=== PATIENT | female | born 1985 | race Caucasian/White ===

== ENCOUNTER 2019-08-25 07:22 | Emergency (ER) | payer MEDICARE, OTHER ==
[2019-08-25] MEDS ORDERED: METOCLOPRAMIDE 5 MG/ML 2 ML VIAL IVP STA (07:41)
[2019-08-25] MEDS ORDERED: SODIUM CHLORIDE 0.9% 500 ML 500 ML IV STA (07:41)
[2019-08-25] MEDS ORDERED: diphenhydrAMINE 50 MG/ML 1 ML VIAL IVP STA (07:41)
[2019-08-25] MEDS ORDERED: MAG HYDROX/AL HYDROX/SIMETH 30 ML, HYOSCYAMINE ELIXIR 10 ML, LIDOCAINE VISCOUS 2% 10 ML PO STA ×3 (07:41)
[2019-08-25] MEDS ORDERED: FAMOTIDINE 20 MG/2 ML VIAL IV STA (07:41)
[2019-08-25] MEDS ORDERED: SODIUM CHLORIDE 0.9% 1,000 ML IV STA (07:41)
[2019-08-25] MEDS ORDERED: IOPAMIDOL CONTRAST (ORAL USE) VIAL PO PRN (08:09)
--- NOTE | 2019-08-25 08:28 | ED ---
Abdominal Pain HPI - General Chief Complaint: Abdominal Pain Stated Complaint: abd pain Time Seen by Provider: 08/25/19 07:29 Source: patient, RN notes reviewed Mode of arrival: ambulatory Limitations: no limitations - History of Present Illness Initial Comments: This a 34-year-old female presents emergency Department with chief complaint abdominal pain. Patient states it started on Friday but states has been constant since yesterday around 2 PM. Patient states that it is worse when she eats. Patient does admit that she's had a prior gastric sleeve procedure 2013. Patient denies any fevers chills she said some nausea no vomiting she's been sli ghtly constipated has not taken any medications for her abdominal pain or constipation. No dysuria no hematuria. Patient reports no fevers or chills patient states that at this time nothing makes her pain feel better. Patient denies any chest pain or shortness of breath. Patient also her prior c holecystectomy. - Related Data Home Medications Medication Instructions Recorded Confirmed ARIPiprazole [Abilify] 20 mg PO HS 08/25/19 08/25/19 Carvedilol [Coreg] 6.25 mg PO BID 08/25/19 08/25/19 Ferrous Sulfate [Iron] 325 mg PO DAILY 08/25/19 08/25/19 Furosemide [Lasix] 20 mg PO DAILY 08/25/19 08/25/19 Lisinopril [Zestril] 5 mg PO DAILY 08/25/19 08/25/19 OXcarbazepine [Trileptal] 300 mg PO HS 08/25/19 08/25/19 Omeprazole 40 mg PO DAILY 08/25/19 08/25/19 Previous Rx's Medication Instructions Recorded Famotidine [Pepcid] 20 mg PO BID #28 tablet 08/25/19 Sucralfate [Carafate] 1 gm PO BID #200 ml 08/25/19 Allergies Allergy/AdvReac Type Severity Reaction Status Date / Time succinylcholine Allergy Severe Unknown Verified 08/25/19 08:38 slobid Allergy Unknown Uncoded 08/29/15 12:45 Childhood Review of Systems ROS Statement: Those systems with pertinent positive or pertinent negative responses have been documented in the HPI. ROS Other: All systems not noted in ROS Statement are negative. Past Medical History Past Medical History: Diabetes Mellitus History of Any Multi-Drug Resistant Organisms: None Reported Past Surgical History: Bariatric Surgery, Section (x3), Cholecystectomy Additional Past Surgical History / Comment(s): PFO CLOSURE X2, OPEN HEART Past Psychological History: Bipolar, Depression Smoking Status: Never smoker Past Alcohol Use History: None Reported Past Drug Use History: None Reported General Exam Limitations: no limitations General appearance: alert, in no apparent distress Head exam: Present: atraumatic, normocephalic, normal inspection Eye exam: Present: normal appearance, PERRL, EOMI. Absent: scleral icterus, conjunctival injection, periorbital swelling ENT exam: Present: normal exam, mucous membranes moist Neck exam: Present: normal inspection, full ROM. Absent: tenderness, meningismus, lymphadenopathy Respiratory exam: Present: normal lung sounds bilaterally. Absent: respiratory distress, wheezes, rales, rhonchi, stridor Cardiovascular Exam: Present: regular rate (Heart rate was 88 on exam, 112 on triage.), normal rhythm, normal heart sounds. Absent: systolic murmur, diastolic murmur, rubs, gallop, clicks GI/Abdominal exam: Present: soft, tenderness (Moderate epigastric, left upper quadrant tenderness), normal bowel sounds. Absent: distended, guarding, rebound, rigid Back exam: Absent: CVA tenderness (R), CVA tenderness (L) Neurological exam: Present: alert, oriented X3 Skin exam: Present: warm, dry, intact, normal color. Absent: rash Course Vital Signs 08/25/19 08/25/19 07:23 08:20 Temperature 98.0 F Pulse Rate 112 H 69 Respiratory 20 Rate Blood Pressure 142/92 140/98 O2 Sat by Pulse 99 98 Oximetry Medical Decision Making - Medical Decision Making Patient's workup present reveals mild hyperglycemia she has a known diabetic CT does not reveal any acute abnormality. I do feel that symptoms are consistent with gastritis amount peptic ulcer disease she has been taking Motrin heavily and she's had a prior gastric sleep. She was educated to not take any NSAID she needs a follow-up with her surgeon Dr. Bryan for EGD she'll be given Pepcid, Carafate. Return parameters were discussed. - Lab Data Result diagrams: 08/25/19 07:46 08/25/19 07:46 Lab Results 08/25/19 08/25/19 08/25/19 Range/Units 07:46 07:46 07:46 WBC 8.7 (3.8-10.6) k/uL RBC 4.94 (3.80-5.40) m/uL Hgb 13.3 (11.4-16.0) gm/dL Hct 41.8 (34.0-46.0) % MCV 84.8 (80.0-100.0) fL MCH 27.0 (25.0-35.0) pg MCHC 31.8 (31.0-37.0) g/dL RDW 12.9 (11.5-15.5) % Plt Count 268 (150-450) k/uL Neutrophils % 61 % Lymphocytes % 30 % Monocytes % 4 % Eosinophils % 2 % Basophils % 1 % Neutrophils # 5.3 (1.3-7.7) k/uL Lymphocytes # 2.6 (1.0-4.8) k/uL Monocytes # 0.4 (0-1.0) k/uL Eosinophils # 0.2 (0-0.7) k/uL Basophils # 0.1 (0-0.2) k/uL Sodium 139 (137-145) mmol/L Potassium 3.9 (3.5-5.1) mmol/L Chloride 103 (98-107) mmol/L Carbon Dioxide 25 (22-30) mmol/L Anion Gap 11 mmol/L BUN 11 (7-17) mg/dL Creatinine 0.55 (0.52-1.04) mg/dL Est GFR (CKD-EPI)AfAm >90 (>60 ml/min/1.73 sqM) Est GFR (CKD-EPI)NonAf >90 (>60 ml/min/1.73 sqM) Glucose 285 H (74-99) mg/dL Calcium 9.5 (8.4-10.2) mg/dL Total Bilirubin 0.5 (0.2-1.3) mg/dL AST 20 (14-36) U/L ALT 21 (4-34) U/L Alkaline Phosphatase 118 (38-126) U/L Total Protein 7.2 (6.3-8.2) g/dL Albumin 4.1 (3.5-5.0) g/dL Amylase 39 (30-110) U/L Lipase 68 (23-300) U/L Urine Color Yellow Urine Appearance Cloudy H (Clear) Urine pH 5.0 (5.0-8.0) Ur Specific [place] 1.032 (1.001-1.035) Urine Protein Trace H (Negative) Urine Glucose (UA) 4+ H (Negative) Urine Ketones Trace H (Negative) Urine Blood Small H (Negative) Urine Nitrite Negative (Negative) Urine Bilirubin Negative (Negative) Urine Urobilinogen <2.0 (<2.0) mg/dL Ur Leukocyte Esterase Negative (Negative) Urine RBC 3 (0-5) /hpf Urine WBC 2 (0-5) /hpf Ur Squamous Epith Cells 19 H (0-4) /hpf Urine Bacteria Few H (None) /hpf Hyaline Casts 1 (0-2) /lpf Urine Mucus Few H (None) /hpf Urine HCG, Qual (Not Detectd) 08/25/19 Range/Units 07:46 WBC (3.8-10.6) k/uL RBC (3.80-5.40) m/uL Hgb (11.4-16.0) gm/dL Hct (34.0-46.0) % MCV (80.0-100.0) fL MCH (25.0-35.0) pg MCHC (31.0-37.0) g/dL RDW (11.5-15.5) % Plt Count (150-450) k/uL Neutrophils % % Lymphocytes % % Monocytes % % Eosinophils % % Basophils % % Neutrophils # (1.3-7.7) k/uL Lymphocytes # (1.0-4.8) k/uL Monocytes # (0-1.0) k/uL Eosinophils # (0-0.7) k/uL Basophils # (0-0.2) k/uL Sodium (137-145) mmol/L Potassium (3.5-5.1) mmol/L Chloride (98-107) mmol/L Carbon Dioxide (22-30) mmol/L Anion Gap mmol/L BUN (7-17) mg/dL Creatinine (0.52-1.04) mg/dL Est GFR (CKD-EPI)AfAm (>60 ml/min/1.73 sqM) Est GFR (CKD-EPI)NonAf (>60 ml/min/1.73 sqM) Glucose (74-99) mg/dL Calcium (8.4-10.2) mg/dL Total Bilirubin (0.2-1.3) mg/dL AST (14-36) U/L ALT (4-34) U/L Alkaline Phosphatase (38-126) U/L Total Protein (6.3-8.2) g/dL Albumin (3.5-5.0) g/dL Amylase (30-110) U/L Lipase (23-300) U/L Urine Color Urine Appearance (Clear) Urine pH (5.0-8.0) Ur Specific [place] (1.001-1.035) Urine Protein (Negative) Urine Glucose (UA) (Negative) Urine Ketones (Negative) Urine Blood (Negative) Urine Nitrite (Negative) Urine Bilirubin (Negative) Urine Urobilinogen (<2.0) mg/dL Ur Leukocyte Esterase (Negative) Urine RBC (0-5) /hpf Urine WBC (0-5) /hpf Ur Squamous Epith Cells (0-4) /hpf Urine Bacteria (None) /hpf Hyaline Casts (0-2) /lpf Urine Mucus (None) /hpf Urine HCG, Qual Not Detected (Not Detectd) Disposition Clinical Impression: Peptic ulcer disease, Gastritis Disposition: HOME SELF-CARE Condition: Stable Instructions (If sedation given, give patient instructions): Gastritis (ED), Peptic Ulcer (ED) Additional Instructions: Please follow-up your surgeon for EGD. No NSAID use.Please return to the Emergency Department if symptoms worsen or any other concerns. Prescriptions: Sucralfate [Carafate] 1 gm PO BID #200 ml Famotidine [Pepcid] 20 mg PO BID #28 tablet Is patient prescribed a controlled substance at d/c from ED?: No Referrals: Sherin Hilario MD [Primary Care Provider] - 1-2 days Dave Louis MD [STAFF PHYSICIAN] - 1-2 days Time of Disposition: 09:29
[2019-08-25 08:35] LABS: Basophils # (A) 0.1 k/uL (0-0.2); Basophils % (A) 1 %; Eosinophils # (A) 0.2 k/uL (0-0.7); Eosinophils % (A) 2 %; HCT 41.8 % (34.0-46.0); HGB 13.3 gm/dL (11.4-16.0); Lymphocytes # (A) 2.6 k/uL (1.0-4.8); Lymphocytes % (A) 30 %; MCHC 31.8 g/dL (31.0-37.0); MCV 84.8 fL (80.0-100.0); Mean Platelet Volume 7.7; Monocytes # (A) 0.4 k/uL (0-1.0); Monocytes % (A) 4 %; Neutrophils # (A) 5.3 k/uL (1.3-7.7); Neutrophils % (A) 61 %; Platelet Count 268 k/uL (150-450); RBC 4.94 m/uL (3.80-5.40); RDW 12.9 % (11.5-15.5); WBC 8.7 k/uL (3.8-10.6)
[2019-08-25 08:43] LABS: Appearance,Urine Cloudy (Clear); Bacteria,Urine Few /hpf; Bilirubin,Urine Negative (Negative); Blood,Urine Small (Negative); Color,Urine Yellow; Glucose,Urine (UA) 4+ (Negative); Hyaline Casts,Urine 1 /lpf (0-2); Ketones,Urine Trace (Negative); Leukocyte Esterase,Urine Negative (Negative); Mucus,Urine Few /hpf; Nitrite,Urine Negative (Negative); Protein,Urine Trace (Negative); RBC,Urine 3 /hpf (0-5); Specific Gravity,Urine 1.032 (1.001-1.035); Squamous Epithelial Cell,Urine 19 /hpf (0-4); Urobilinogen,Urine <2.0 mg/dL (<2.0); WBC,Urine 2 /hpf (0-5)
[2019-08-25] MEDS ORDERED: ONDANSETRON 4 MG/2 ML VIAL IVP STA (08:47)
[2019-08-25] MEDS ORDERED: MORPHINE SULFATE 4 MG/ML SYRINGE IVP STA (08:47)
--- NOTE | 2019-08-25 08:48 | CT ---
EXAMINATION TYPE: CT abdomen pelvis wo con DATE OF EXAM: 08/25/2019 COMPARISON: September 13, 2011 HISTORY: epigastric pain CT DLP: 1512.4 mGycm Examination of the solid and hollow viscera is limited given the lack of contrast. FINDINGS: LUNG BASES: No evidence for nodule. No evidence for infiltrate. LIVER/GB: O cystectomy clips noted. No space-occupying hepatic lesion. PANCREAS: No pancreatic mass identified. No inflammatory process seen. SPLEEN: No evidence for splenomegaly. No intrasplenic lesions seen. ADRENALS: No adrenal nodules identified. No evidence for thickening. KIDNEYS: No evidence for renal mass. No nephrolithiasis. No hydronephrosis. BOWEL: Gastric sleeve changes noted. Appendix has a normal appearance. No evidence of bowel obstructi on. No inflammatory process. Lymph nodes: No evidence for adenopathy greater than 1 cm. Abdominal aorta: Atheromatous changes seen. No evidence for aneurysm. Genital organs: No significant abnormality. Other: No significant abnormality. IMPRESSION: NO ACUTE PROCESS IDENTIFIED TO ACCOUNT FOR THE PATIENT'S SYMPTOMS.
[2019-08-25 08:50] LABS: ALT 21 U/L (4-34); AST 20 U/L (14-36); African American GFR (CKD) >90 (>60 ml/min/1.73 sqM); Albumin 4.1 g/dL (3.5-5.0); Alkaline Phosphatase 118 U/L (38-126); Amylase 39 U/L (30-110); Anion Gap 11 mmol/L; Blood Urea Nitrogen 11 mg/dL (7-17); Calcium 9.5 mg/dL (8.4-10.2); Carbon Dioxide 25 mmol/L (22-30); Chloride 103 mmol/L (98-107); Glucose 285 mg/dL (74-99); Non-African American GFR(CKD) >90 (>60 ml/min/1.73 sqM); Potassium 3.9 mmol/L (3.5-5.1); Sodium 139 mmol/L (137-145); Total Bilirubin 0.5 mg/dL (0.2-1.3); Total Protein 7.2 g/dL (6.3-8.2)
[2019-08-25] MEDS ORDERED: ACET/COD 300 MG/30 MG STARTER PACK 6 TAB BTL PO STA (09:55)
[2019-08-25 10:02] VITALS: BP 143/91; PULSE 74; RESP 18; TEMP 98.4
== END 2019-08-25 10:00 | disposition home or self-care (01) ==
LOC: EC 07:22
DX: K29.70 Gastritis, unspecified, without bleeding (principal); K27.9 Peptic ulcer, site unspecified, unspecified as acute or chronic, without hemorrhage or perforation; E11.65 Type 2 diabetes mellitus with hyperglycemia; F31.9 Bipolar disorder, unspecified; Z79.899 Other long term (current) drug therapy; Z79.1 Long term (current) use of non-steroidal anti-inflammatories (NSAID); Z88.8 Allergy status to other drugs, medicaments and biological substances; Z90.49 Acquired absence of other specified parts of digestive tract
CPT/HCPCS: 36415; 80053; 82150; 83690; 85025; 81001; 81025; 74176; 99284; 96374; 96375 ×4; 96361; J2270; J1200; J2765; J2405

== ENCOUNTER 2019-08-31 12:52 | Emergency (ER) | payer MEDICARE, OTHER ==
[2019-08-31 13:07] VITALS: BP 126/79; PULSE 76; RESP 20; TEMP 100.9
[2019-08-31] MEDS ORDERED: IBUPROFEN 600 MG TAB PO STA (13:39)
[2019-08-31] MEDS ORDERED: ACETAMINOPHEN TAB 500 MG TAB PO STA (13:39)
--- NOTE | 2019-08-31 14:19 | ED ---
URI HPI - General Chief Complaint: Upper Respiratory Infection Stated Complaint: fever,sore throat Time Seen by Provider: 08/31/19 13:25 Source: patient, RN notes reviewed, old records reviewed Mode of arrival: ambulatory Limitations: no limitations - History of Present Illness Initial Comments: 34 year old female with 3 days of sore throat, body aches, fever and cough. Patient has not had motrin or tylenol. Patient has no history of sick contacts. Patient has non productive cough. - Related Data Home Medications Medication Instructions Recorded Confirmed ARIPiprazole [Abilify] 20 mg PO HS 08/25/19 08/25/19 Carvedilol [Coreg] 6.25 mg PO BID 08/25/19 08/25/19 Ferrous Sulfate [Iron] 325 mg PO DAILY 08/25/19 08/25/19 Furosemide [Lasix] 20 mg PO DAILY 08/25/19 08/25/19 Lisinopril [Zestril] 5 mg PO DAILY 08/25/19 08/25/19 OXcarbazepine [Trileptal] 300 mg PO HS 08/25/19 08/25/19 Omeprazole 40 mg PO DAILY 08/25/19 08/25/19 Previous Rx's Medication Instructions Recorded Famotidine [Pepcid] 20 mg PO BID #28 tablet 08/25/19 Sucralfate [Carafate] 1 gm PO BID #200 ml 08/25/19 Acetaminophen Tab [Tylenol Tab] 500 mg PO Q4H #20 tablet 08/31/19 Ibuprofen [Motrin] 600 mg PO Q6HR PRN #20 tab 08/31/19 Oseltamivir [Tamiflu] 75 mg PO Q12HR #10 cap 08/31/19 Allergies Allergy/AdvReac Type Severity Reaction Status Date / Time succinylcholine Allergy Severe Unknown Verified 08/31/19 13:07 slobid Allergy Unknown Uncoded 08/31/19 13:07 Childhood Review of Systems ROS Statement: Those systems with pertinent positive or pertinent negative responses have been documented in the HPI. ROS Other: All systems not noted in ROS Statement are negative. Past Medical History Past Medical History: Diabetes Mellitus History of Any Multi-Drug Resistant Organisms: None Reported Past Surgical History: Bariatric Surgery, Section, Cholecystectomy Additional Past Surgical History / Comment(s): PFO CLOSURE X2, OPEN HEART INFANT Past Psychological History: Bipolar, Depression Smoking Status: Never smoker Past Alcohol Use History: None Reported Past Drug Use History: None Reported General Exam - General Exam Comments Initial Comments: 34 year old female, no distress. Limitations: no limitations General appearance: alert, in no apparent distress Head exam: Present: atraumatic, normocephalic, normal inspection Eye exam: Present: normal appearance, PERRL, EOMI. Absent: scleral icterus, conjunctival injection, periorbital swelling ENT exam: Present: normal exam, mucous membranes moist. Absent: normal oropharynx (erythema) Neck exam: Present: normal inspection. Absent: tenderness, meningismus, lymphadenopathy Respiratory exam: Present: normal lung sounds bilaterally. Absent: respiratory distress, wheezes, rales, rhonchi, stridor Cardiovascular Exam: Present: regular rate, normal rhythm, normal heart sounds. Absent: systolic murmur, diastolic murmur, rubs, gallop, clicks GI/Abdominal exam: Present: soft, normal bowel sounds. Absent: distended, tenderness, guarding, rebound, rigid Back exam: Present: normal inspection Neurological exam: Present: alert, oriented X3, CN II-XII intact Psychiatric exam: Present: normal affect, normal mood Skin exam: Present: warm, dry, intact, normal color. Absent: rash Course Vital Signs 08/31/19 13:05 Temperature 100.9 F H Pulse Rate 76 Respiratory 20 Rate Blood Pressure 126/79 O2 Sat by Pulse 97 Oximetry Medical Decision Making - Medical Decision Making 34 year old female presents to ED for sore throat and body aches. PAtient given Motrin and tylenol. Patient is positive for influenza. Discussed tamiflu and using motrin adn tylenol. Lungs are clear and no respiratory distress. Discussed return parameters. - Lab Data Lab Results 08/31/19 08/31/19 Range/Units 13:27 13:27 Influenza Type A RNA Not Detected (Not Detectd) Influenza Type B (PCR) Detected H (Not Detectd) Group A Strep Rapid Negative (Negative) Disposition Clinical Impression: Influenza Disposition: HOME SELF-CARE Condition: Good Instructions (If sedation given, give patient instructions): Influenza (ED) Additional Instructions: Patient is advised also to Motrin Tylenol every 3-4 hours. Increase fluid intake. Return to the ED if any alarming signs or symptoms occur. Prescriptions: Ibuprofen [Motrin] 600 mg PO Q6HR PRN #20 tab PRN Reason: Pain Oseltamivir [Tamiflu] 75 mg PO Q12HR #10 cap Acetaminophen Tab [Tylenol Tab] 500 mg PO Q4H #20 tablet Is patient prescribed a controlled substance at d/c from ED?: No Referrals: Sherin Hilario MD [Primary Care Provider] - 1-2 days Time of Disposition: 14:16
== END 2019-08-31 14:37 | disposition home or self-care (01) ==
LOC: EC 12:52
DX: J11.1 Influenza due to unidentified influenza virus with other respiratory manifestations (principal); F31.9 Bipolar disorder, unspecified; Z88.8 Allergy status to other drugs, medicaments and biological substances; Z79.899 Other long term (current) drug therapy
CPT/HCPCS: 87081; 87430; 87502; 99284

== ENCOUNTER 2019-10-24 14:27 | Emergency (ER) | payer OTHER ==
[2019-10-24 14:32] VITALS: BP 139/89; PULSE 109; TEMP 98.1
--- NOTE | 2019-10-24 15:12 | ED ---
General Adult HPI - General Chief complaint: Upper Respiratory Infection Stated complaint: SOB Time Seen by Provider: 10/24/19 14:33 Source: patient, RN notes reviewed Mode of arrival: ambulatory Limitations: no limitations - History of Present Illness Initial comments: 34-year-old female with a past medical history of section, cholecystectomy, PFO closure as a child, dilated cardiomyopathy presents to the emergency department for a chief complaint of cough and soreness of breath. Patient states that she started to feel more tired than normal 5 days ago and felt "off." 2 days ago she started to develop a cough and shortness of breath. Cough is nonproductive. Patient has had fevers up to 101 which she has been checking at home. She did take Tylenol about 3 hours prior to arrival. Patient denies any history of asthma or COPD. Denies smoking history. She denies any known exposures to [place] virus. Denies any recent travel history. 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 - Related Data Home Medications Medication Instructions Recorded Confirmed ARIPiprazole [Abilify] 20 mg PO HS 08/25/19 10/24/19 Carvedilol [Coreg] 6.25 mg PO BID 08/25/19 10/24/19 Furosemide [Lasix] 20 mg PO DAILY 08/25/19 10/24/19 Lisinopril [Zestril] 5 mg PO DAILY 08/25/19 10/24/19 OXcarbazepine [Trileptal] 300 mg PO HS 08/25/19 10/24/19 Omeprazole 40 mg PO DAILY 08/25/19 10/24/19 Acetaminophen Tab [Tylenol Tab] 500 mg PO BID PRN 10/24/19 10/24/19 buPROPion XL [Wellbutrin Xl] 300 mg PO DAILY 10/24/19 10/24/19 metFORMIN HCL [Glucophage] 500 mg PO BID 10/24/19 10/24/19 Allergies Allergy/AdvReac Type Severity Reaction Status Date / Time succinylcholine Allergy Severe Unknown Verified 10/24/19 15:39 slobid Allergy Unknown Uncoded 10/24/19 15:39 Childhood Review of Systems ROS Statement: Those systems with pertinent positive or pertinent negative responses have been documented in the HPI. ROS Other: All systems not noted in ROS Statement are negative. Past Medical History Past Medical History: Diabetes Mellitus History of Any Multi-Drug Resistant Organisms: None Reported Past Surgical History: Bariatric Surgery, Section, Cholecystectomy Additional Past Surgical History / Comment(s): PFO CLOSURE X2, OPEN HEART Past Psychological History: Bipolar, Depression Smoking Status: Never smoker Past Alcohol Use History: None Reported Past Drug Use History: None Reported General Exam Limitations: no limitations General appearance: alert, in no apparent distress Head exam: Present: atraumatic, normocephalic, normal inspection Eye exam: Present: normal appearance, PERRL, EOMI. Absent: scleral icterus, conjunctival injection, periorbital swelling ENT exam: Present: normal exam, mucous membranes moist Neck exam: Present: normal inspection, full ROM. Absent: tenderness, meningismus, lymphadenopathy Respiratory exam: Present: normal lung sounds bilaterally. Absent: respiratory distress, wheezes, rales, rhonchi, stridor Cardiovascular Exam: Present: regular rate, normal rhythm, normal heart sounds. Absent: systolic murmur, diastolic murmur, rubs, gallop, clicks GI/Abdominal exam: Present: soft, normal bowel sounds. Absent: distended, tenderness, guarding, rebound, rigid Neurological exam: Present: alert Course Vital Signs 10/24/19 10/24/19 14:28 15:45 Temperature 98.1 F Pulse Rate 109 H Respiratory 18 16 Rate Blood Pressure 139/89 O2 Sat by Pulse 100 Oximetry Medical Decision Making - Medical Decision Making Patient reports cough with mild shortness of breath for the past 3 days. Patient is well-appearing. She is not in any respiratory distress. Lungs are clear. Patient initially tachycardic at 109 however this was likely secondary to anxiety and did improve to the 80s throughout her stay. O2 saturation maintained between 97-100%. Patient states she did not even want to come today by her boyfriend wanted her to. Chest x-ray shows a normal chest, no change. At this time patient will be discharged home to follow up with primary care. I did discuss if she has any worsening shortness of breath she needs to return immediately to the emergency department. Pt was also evaluated by Dr Yoon Disposition Clinical Impression: Cough Disposition: HOME SELF-CARE Condition: Good Instructions (If sedation given, give patient instructions): Acute Cough (ED) Additional Instructions: Please follow up with primary care in 1-2 days. If you have any worsening symptoms such as increased shortness of breath return to the emergency department. Is patient prescribed a controlled substance at d/c from ED?: No Referrals: Sherin Hilario MD [Primary Care Provider] - 1-2 days Time of Disposition: 16:01
--- NOTE | 2019-10-24 15:36 | XR ---
EXAMINATION TYPE: XR chest 1V portable DATE OF EXAM: 10/24/2019 COMPARISON: 11/28/2015 HISTORY: Cough TECHNIQUE: FINDINGS: Heart and mediastinum are normal. Lungs are clear. Diaphragm is normal. Bony thorax appears normal. IMPRESSION: Normal chest. No change.
[2019-10-24 15:46] VITALS: RESP 16
== END 2019-10-24 16:05 | disposition home or self-care (01) ==
LOC: EC 14:27
DX: R05 Cough (principal); R06.02 Shortness of breath; R50.9 Fever, unspecified; E11.9 Type 2 diabetes mellitus without complications; F32.9 Major depressive disorder, single episode, unspecified; Z79.84 Long term (current) use of oral hypoglycemic drugs; Z79.899 Other long term (current) drug therapy; Z88.8 Allergy status to other drugs, medicaments and biological substances
CPT/HCPCS: 71045; 99284

== ENCOUNTER 2020-04-07 13:07 | Emergency (ER) | payer MEDICARE, OTHER ==
[2020-04-07 13:18] VITALS: RESP 18
[2020-04-07] MEDS ORDERED: ONDANSETRON 4 MG/2 ML VIAL IVP STA (13:41)
[2020-04-07] MEDS ORDERED: SODIUM CHLORIDE 0.9% 1,000 ML IV STA (13:41)
--- NOTE | 2020-04-07 14:01 | ED ---
General Adult HPI - General Chief complaint: Shortness of Breath Stated complaint: leg pain, sob, chest discomfort Time Seen by Provider: 04/07/20 13:26 Source: patient Mode of arrival: wheelchair Limitations: no limitations - History of Present Illness Initial comments: Patient is a 35-year-old female presenting to the emergency Department with complaints of pain in her left lower leg as well as swelling 2 days. Patient is also complaining of shortness of breath and nausea for the past few days as well. Patient states she seen her PCP today who sent her to the ER. She does have a history of a TIA after delivering her second child a few years ago, secondary to a PFO that she had closed. Patient states she is not currently on blood thinners. She states that she stopped taking all of her medications approximately 2 months ago. She used to be on medicines for anxiety, depression, diabetes and hypertension. She also used to be on Lasix. She states she is having some mild chest tightness is intermittent but no sharp pains. She denies any injuries or trauma to her left leg that could cause this pain. She did have x-rays today at her PCPs office which revealed no bony abnormalities. She denies any history of surgeries in her lower extremities. She denies history of blood clots. She denies fever, chills, vomiting, abdominal pain. She states she is not secondary to uterine ablation and tubal ligation. She is no further complaints at this time. Upon arrival to the ER, her vital signs are stable. - Related Data Home Medications Medication Instructions Recorded Confirmed ARIPiprazole [Abilify] 20 mg PO HS 08/25/19 10/24/19 Carvedilol [Coreg] 6.25 mg PO BID 08/25/19 10/24/19 Furosemide [Lasix] 20 mg PO DAILY 08/25/19 10/24/19 OXcarbazepine [Trileptal] 300 mg PO HS 08/25/19 10/24/19 Omeprazole 40 mg PO DAILY 08/25/19 10/24/19 lisinopriL [Zestril] 5 mg PO DAILY 08/25/19 10/24/19 Acetaminophen Tab [Tylenol Tab] 500 mg PO BID PRN 10/24/19 10/24/19 buPROPion XL [Wellbutrin Xl] 300 mg PO DAILY 10/24/19 10/24/19 metFORMIN HCL [Glucophage] 500 mg PO BID 10/24/19 10/24/19 Allergies Allergy/AdvReac Type Severity Reaction Status Date / Time succinylcholine Allergy Severe Unknown Verified 04/07/20 13:18 slobid Allergy Unknown Uncoded 04/07/20 13:18 Childhood Review of Systems ROS Statement: Those systems with pertinent positive or pertinent negative responses have been documented in the HPI. ROS Other: All systems not noted in ROS Statement are negative. Past Medical History Past Medical History: Diabetes Mellitus History of Any Multi-Drug Resistant Organisms: None Reported Past Surgical History: Bariatric Surgery, Section, Cholecystectomy, T ubal Ligation Additional Past Surgical History / Comment(s): PFO CLOSURE X2, OPEN HEART , Past Psychological History: Bipolar, Depression Smoking Status: Never smoker Past Alcohol Use History: None Reported Past Drug Use History: None Reported General Exam - General Exam Comments Initial Comments: GENERAL: Patient is well-developed and well-nourished. Patient is nontoxic and in no acute distress, does appear uncomfortable. HEAD: Atraumatic, normocephalic. EYES: Pupils equal round and reactive to light, extraocular movements intact, sclera anicteric, conjunctiva are normal. Eyelids were unremarkable. ENT: TMs normal, nares patent, oropharynx clear without exudates. Moist mucous membranes. NECK: Normal range of motion, supple without lymphadenopathy or JVD. LUNGS: Unlabored respirations. Breath sounds clear to auscultation bilaterally and equal. No wheezes rales or rhonchi. HEART: Regular rate and rhythm without murmurs, rubs or gallops. ABDOMEN: Soft, nontender, normoactive bowel sounds. No guarding, no rebound. No masses appreciated. : Deferred MUSCULOSKELETAL: Patient has pain with palpation of her left posterior lower leg, no swelling to the bilateral lower legs. There is no erythema. She does have full active ra nge of motion of both lower extremities bilaterally. She is neurovascular intact. No clubbing or cyanosis. NEUROLOGICAL: Patient is alert and oriented x 3. Motor and sensory are also intact. Cranial nerves II through XII grossly intact. Symmetrical smile. Normal speech, normal gait. PSYCH: Normal mood, normal affect. SKIN: Warm, Dry, normal turgor, no rashes or lesions noted. Limitations: no limitations Course Vital Signs 04/07/20 04/07/20 13:12 14:10 Temperature 98.8 F Pulse Rate 88 80 Respiratory 18 18 Rate Blood Pressure 133/92 134/87 O2 Sat by Pulse 100 100 Oximetry EKG Findings - EKG Comments: EKG Findings:: Normal sinus rhythm, left ventricular hypertrophy with QRS widening, T wave abnormalities. Ventricular rate 77, NC 166, QT 412. Medical Decision Making - Medical Decision Making Patient is a 35-year-old female presenting from her PCPs office with complaints of left lower leg pain as well as shortness of breath for the past few days. Her vital signs are stable. Her exam is unremarkable except for pain with palpation of her left calf area. Given her shortness of breath, left leg pain we did order a chest CT to rule out a PE which was negative. Ultrasound was also negative for DVT of her left lower leg. Lab work reveals no acute findings, d-dimer was normal, troponin was normal, glucose was 173, she did have 4+ glucose in her urine. She was given fluids in the ER and has been stable. I discussed with patient that I believe her left lower lower leg pain is from a muscle strain. She may also have a mild upper respiratory virus. I recommended gentle stretching, heat and ice to the leg for comfort. She is follow-up with her PCP to maybe start getting back on her regular medications. She has been off her regular medications for 2 months now. Patient is agreeable with this plan of care. She is stable for discharge. Return parameters were discussed with the patient she verbalized understanding. Case discussed with Dr. Velez. - Lab Data Result diagrams: 04/07/20 13:54 04/07/20 13:54 Lab Results 04/07/20 04/07/20 04/07/20 Range/Units 13:54 13:54 13:54 WBC 9.5 (3.8-10.6) k/uL RBC 4.98 (3.80-5.40) m/uL Hgb 12.9 (11.4-16.0) gm/dL Hct 41.6 (34.0-46.0) % MCV 83.6 (80.0-100.0) fL MCH 25.9 (25.0-35.0) pg MCHC 31.0 (31.0-37.0) g/dL RDW 13.6 (11.5-15.5) % Plt Count 271 (150-450) k/uL Neutrophils % 62 % Lymphocytes % 30 % Monocytes % 4 % Eosinophils % 2 % Basophils % 0 % Neutrophils # 5.9 (1.3-7.7) k/uL Lymphocytes # 2.9 (1.0-4.8) k/uL Monocytes # 0.4 (0-1.0) k/uL Eosinophils # 0.2 (0-0.7) k/uL Basophils # 0.0 (0-0.2) k/uL PT 9.4 (9.0-12.0) sec INR 0.9 (<1.2) APTT 22.9 (22.0-30.0) sec D-Dimer 0.32 (<0.60) mg/L FEU Sodium (137-145) mmol/L Potassium (3.5-5.1) mmol/L Chloride (98-107) mmol/L Carbon Dioxide (22-30) mmol/L Anion Gap mmol/L BUN (7-17) mg/dL Creatinine (0.52-1.04) mg/dL Est GFR (CKD-EPI)AfAm (>60 ml/min/1.73 sqM) Est GFR (CKD-EPI)NonAf (>60 ml/min/1.73 sqM) Glucose (74-99) mg/dL Plasma Lactic Acid Gaudencio (0.7-2.0) mmol/L Calcium (8.4-10.2) mg/dL Total Bilirubin (0.2-1.3) mg/dL AST (14-36) U/L ALT (4-34) U/L Alkaline Phosphatase (38-126) U/L Troponin I (0.000-0.034) ng/mL Total Protein (6.3-8.2) g/dL Albumin (3.5-5.0) g/dL Urine Color Yellow Urine Appearance Cloudy H (Clear) Urine pH 5.5 (5.0-8.0) Ur Specific [place] 1.024 (1.001-1.035) Urine Protein Negative (Negative) Urine Glucose (UA) 4+ H (Negative) Urine Ketones Negative (Negative) Urine Blood Negative (Negative) Urine Nitrite Negative (Negative) Urine Bilirubin Negative (Negative) Urine Urobilinogen <2.0 (<2.0) mg/dL Ur Leukocyte Esterase Negative (Negative) Urine RBC 3 (0-5) /hpf Urine WBC 2 (0-5) /hpf Ur Squamous Epith Cells 20 H (0-4) /hpf Urine Bacteria Rare H (None) /hpf Urine Mucus Many H (None) /hpf 04/07/20 04/07/20 04/07/20 Range/Units 13:54 13:54 13:54 WBC (3.8-10.6) k/uL RBC (3.80-5.40) m/uL Hgb (11.4-16.0) gm/dL Hct (34.0-46.0) % MCV (80.0-100.0) fL MCH (25.0-35.0) pg MCHC (31.0-37.0) g/dL RDW (11.5-15.5) % Plt Count (150-450) k/uL Neutrophils % % Lymphocytes % % Monocytes % % Eosinophils % % Basophils % % Neutrophils # (1.3-7.7) k/uL Lymphocytes # (1.0-4.8) k/uL Monocytes # (0-1.0) k/uL Eosinophils # (0-0.7) k/uL Basophils # (0-0.2) k/uL PT (9.0-12.0) sec INR (<1.2) APTT (22.0-30.0) sec D-Dimer (<0.60) mg/L FEU Sodium 137 (137-145) mmol/L Potassium 3.9 (3.5-5.1) mmol/L Chloride 103 (98-107) mmol/L Carbon Dioxide 28 (22-30) mmol/L Anion Gap 6 mmol/L BUN 11 (7-17) mg/dL Creatinine 0.55 (0.52-1.04) mg/dL Est GFR (CKD-EPI)AfAm >90 (>60 ml/min/1.73 sqM) Est GFR (CKD-EPI)NonAf >90 (>60 ml/min/1.73 sqM) Glucose 173 H (74-99) mg/dL Plasma Lactic Acid Gaudencio 0.7 (0.7-2.0) mmol/L Calcium 9.3 (8.4-10.2) mg/dL Total Bilirubin 0.3 (0.2-1.3) mg/dL AST 24 (14-36) U/L ALT 27 (4-34) U/L Alkaline Phosphatase 90 (38-126) U/L Troponin I 0.014 (0.000-0.034) ng/mL Total Protein 7.0 (6.3-8.2) g/dL Albumin 4.0 (3.5-5.0) g/dL Urine Color Urine Appearance (Clear) Urine pH (5.0-8.0) Ur Specific [place] (1.001-1.035) Urine Protein (Negative) Urine Glucose (UA) (Negative) Urine Ketones (Negative) Urine Blood (Negative) Urine Nitrite (Negative) Urine Bilirubin (Negative) Urine Urobilinogen (<2.0) mg/dL Ur Leukocyte Esterase (Negative) Urine RBC (0-5) /hpf Urine WBC (0-5) /hpf Ur Squamous Epith Cells (0-4) /hpf Urine Bacteria (None) /hpf Urine Mucus (None) /hpf Disposition Clinical Impression: Left leg pain, Viral upper respiratory illness Disposition: HOME SELF-CARE Condition: Stable Instructions (If sedation given, give patient instructions): Muscle Strain (ED) Additional Instructions: Please return to the Emergency Department if symptoms worsen or any other concerns. May use heat and/or ice to the left lower leg, ibuprofen for discomfort. Gentle stretching to the area. Follow-up with PCP as discussed. Is patient prescribed a controlled substance at d/c from ED?: No Referrals: Sherin Hilario MD [Primary Care Provider] - 1-2 days
[2020-04-07 14:20] LABS: Basophils % (A) 0 %; Eosinophils # (A) 0.2 k/uL (0-0.7); Eosinophils % (A) 2 %; HCT 41.6 % (34.0-46.0); HGB 12.9 gm/dL (11.4-16.0); Lymphocytes # (A) 2.9 k/uL (1.0-4.8); Lymphocytes % (A) 30 %; MCH 25.9 pg (25.0-35.0); MCV 83.6 fL (80.0-100.0); Mean Platelet Volume 7.4; Monocytes # (A) 0.4 k/uL (0-1.0); Monocytes % (A) 4 %; Neutrophils # (A) 5.9 k/uL (1.3-7.7); Neutrophils % (A) 62 %; Platelet Count 271 k/uL (150-450); RBC 4.98 m/uL (3.80-5.40); RDW 13.6 % (11.5-15.5); WBC 9.5 k/uL (3.8-10.6)
[2020-04-07 14:33] LABS: ALT 27 U/L (4-34); AST 24 U/L (14-36); African American GFR (CKD) >90 (>60 ml/min/1.73 sqM); Alkaline Phosphatase 90 U/L (38-126); Anion Gap 6 mmol/L; Blood Urea Nitrogen 11 mg/dL (7-17); Calcium 9.3 mg/dL (8.4-10.2); Carbon Dioxide 28 mmol/L (22-30); Chloride 103 mmol/L (98-107); Glucose 173 mg/dL (74-99); Non-African American GFR(CKD) >90 (>60 ml/min/1.73 sqM); Potassium 3.9 mmol/L (3.5-5.1); Sodium 137 mmol/L (137-145); Total Bilirubin 0.3 mg/dL (0.2-1.3)
[2020-04-07 14:46] LABS: D-Dimer 0.32 mg/L FEU (<0.60); INR 0.9 (<1.2); Partial Thromboplastin Time 22.9 sec (22.0-30.0); Prothrombin Time 9.4 sec (9.0-12.0)
[2020-04-07 15:00] LABS: Appearance,Urine Cloudy (Clear); Bacteria,Urine Rare /hpf; Bilirubin,Urine Negative (Negative); Blood,Urine Negative (Negative); Color,Urine Yellow; Glucose,Urine (UA) 4+ (Negative); Ketones,Urine Negative (Negative); Leukocyte Esterase,Urine Negative (Negative); Mucus,Urine Many /hpf; Nitrite,Urine Negative (Negative); PH, Urine 5.5 (5.0-8.0); Protein,Urine Negative (Negative); RBC,Urine 3 /hpf (0-5); Specific Gravity,Urine 1.024 (1.001-1.035); Squamous Epithelial Cell,Urine 20 /hpf (0-4); Urobilinogen,Urine <2.0 mg/dL (<2.0); WBC,Urine 2 /hpf (0-5)
--- NOTE | 2020-04-07 15:22 | CT ---
EXAMINATION TYPE: CT chest angio for PE DATE OF EXAM: 04/07/2020 COMPARISON: None HISTORY: Shortness of breath. CT DLP: 986.2 mGycm Automated exposure control for dose reduction was used. CONTRAST: CT Chest for pulmonary embolism performed with with IV Contrast, patient injected with 100 mL of Isov ue 370. MIP images generated and utilized on a separate workstation. FINDINGS: LUNGS: The lungs are grossly clear, there is no concerning parenchymal mass or nodule identified. T here is no pleural effusion or pneumothorax seen. The tracheobronchial tree is patent. MEDIASTINUM: There is satisfactory enhancement of the pulmonary artery and its branches, there is no CT evidence for pulmonary embolism. There are no greater than 1 cm hilar or mediastinal lymph nodes. Cardiac size normal. No pericardial effusion is seen. No thoracic aortic aneurysm. OTHER: Normal adrenal glands. Degenerative changes of the spine.. IMPRESSION: 1. No evidence of pulmonary aneurysm. 2. No acute cardiothoracic process.
--- NOTE | 2020-04-07 15:30 | US ---
EXAMINATION TYPE: US venous doppler duplex LE LT DATE OF EXAM: 04/07/2020 3:20 PM COMPARISON: NONE CLINICAL HISTORY: pain, swelling. Left leg pain, no h/o dvt SIDE PERFORMED: Left TECHNIQUE: The lower extremity deep venous system is examined utilizing real time linear array sonog harjit with graded compression, doppler sonography and color-flow sonography. VESSELS IMAGED: External Iliac Vein (EIV) Common Femoral Vein Deep Femoral Vein Greater Saphenous Vein * Femoral Vein Popliteal Vein Small Saphenous Vein * Proximal Calf Veins (* superficial vessels) Left Leg: Negative for DVT IMPRESSION: 1. Left lower extremity ultrasound negative for deep venous thrombosis
[2020-04-07 16:05] VITALS: BP 121/74; PULSE 84; TEMP 97.4
== END 2020-04-07 16:18 | disposition home or self-care (01) ==
LOC: EC 13:07
DX: J06.9 Acute upper respiratory infection, unspecified (principal); M79.605 Pain in left leg; F31.9 Bipolar disorder, unspecified; E11.9 Type 2 diabetes mellitus without complications; Z79.84 Long term (current) use of oral hypoglycemic drugs; Z79.899 Other long term (current) drug therapy; Z88.8 Allergy status to other drugs, medicaments and biological substances; Z86.73 Personal history of transient ischemic attack (TIA), and cerebral infarction without residual deficits
CPT/HCPCS: 36415; 93005; 85379; 80053; 83605; 84484; 85025; 85610; 85730; 81001; 93971; 71275; 99285; 96374; 96361 ×2; J2405; Q9967

== ENCOUNTER 2020-05-19 00:43 | Emergency (ER) | payer MEDICARE, OTHER ==
[2020-05-19 01:02] VITALS: RESP 16
[2020-05-19 01:52] LABS: Appearance,Urine Cloudy (Clear); Bacteria,Urine Rare /hpf; Bilirubin,Urine Negative (Negative); Blood,Urine Negative (Negative); Color,Urine Yellow; Glucose,Urine (UA) Trace (Negative); Ketones,Urine Trace (Negative); Leukocyte Esterase,Urine Negative (Negative); Mucus,Urine Many /hpf; Nitrite,Urine Negative (Negative); PH, Urine 5.5 (5.0-8.0); Protein,Urine 1+ (Negative); RBC,Urine 2 /hpf (0-5); Specific Gravity,Urine 1.035 (1.001-1.035); Squamous Epithelial Cell,Urine 42 /hpf (0-4); WBC,Urine 1 /hpf (0-5)
[2020-05-19 02:08] LABS: Amphetamine Screen,Urine Not Detected (NotDetected); Barbiturate Screen,Urine Not Detected (NotDetected); Benzodiazepines Screen,Urine Not Detected (NotDetected); Cocaine Screen,Urine Not Detected (NotDetected); Methadone Screen, Urine Not Detected (NotDetected); Opiate Screen,Urine Not Detected (NotDetected); Oxycodone Screen, Urine Not Detected (NotDetected); Phencyclidine Screen,Urine Not Detected (NotDetected); Tricyclic Antidepressant,Urine Not Detected (NotDetected); Urn Cannabinoid Scrn Not Detected (NotDetected)
[2020-05-19 03:29] VITALS: TEMP 98.5
--- NOTE | 2020-05-19 03:40 | ED ---
General Adult HPI - General Source: family, police, RN notes reviewed, old records reviewed Mode of arrival: ambulatory Limitations: no limitations <Cristian Cheng - Last Filed: 05/19/20 03:36> <Joaquin Marcum - Last Filed: 05/19/20 08:24> - General Chief complaint: Psychiatric Symptoms Stated complaint: slate picker order Time Seen by Provider: 05/19/20 01:05 - History of Present Illness Initial comments: 35-year-old female patient to ED for psychiatric evaluation due to pickup order. Reportedly patient had been making suicidal statements. Patient denies any acute complaints. Denies any suicidal or homicidal ideations. Systemic: Pt denies fatigue, fever/chills, rash. Pt denies weakness, night swe ats, weight loss. Neuro: Pt denies headache, visual disturbances, syncope or pre-syncope. HEENT: Pt denies ocular discharge or irritation, otalgia, rhinorrhea, pharyngitis or notable lymphadenopathy. Cardiopulmonary: Pt denies chest pain, SOB, heart palpitations, dyspnea on exertion. Abdominal/GI: Pt denies abdominal pain, n/v/d. : Pt denies dysuria, burning w/ urination, frequency/urgency. Denies new onset urinary or bowel incontinence. MSK: Pt denies myalgia, loss of strength or function in extremities. Neuro: Pt denies new onset weakness, paresthesias. (Cristian Cheng) - Related Data Home Medications Medication Instructions Recorded Confirmed ARIPiprazole [Abilify] 20 mg PO HS 08/25/19 10/24/19 Carvedilol [Coreg] 6.25 mg PO BID 08/25/19 10/24/19 Furosemide [Lasix] 20 mg PO DAILY 08/25/19 10/24/19 OXcarbazepine [Trileptal] 300 mg PO HS 08/25/19 10/24/19 Omeprazole 40 mg PO DAILY 08/25/19 10/24/19 lisinopriL [Zestril] 5 mg PO DAILY 08/25/19 10/24/19 Acetaminophen Tab [Tylenol Tab] 500 mg PO BID PRN 10/24/19 10/24/19 buPROPion XL [Wellbutrin Xl] 300 mg PO DAILY 10/24/19 10/24/19 metFORMIN HCL [Glucophage] 500 mg PO BID 10/24/19 10/24/19 Allergies Allergy/AdvReac Type Severity Reaction Status Date / Time succinylcholine Allergy Severe Unknown Verified 05/19/20 01:02 slobid Allergy Unknown Uncoded 05/19/20 01:02 Childhood Review of Systems ROS Other: All systems not noted in ROS Statement are negative. <Cristian Cheng - Last Filed: 05/19/20 03:36> ROS Other: All systems not noted in ROS Statement are negative. <Joaquin Marcum - Last Filed: 05/19/20 08:24> ROS Statement: Those systems with pertinent positive or pertinent negative responses have been documented in the HPI. Past Medical History Past Medical History: Diabetes Mellitus History of Any Multi-Drug Resistant Organisms: None Reported Past Surgical History: Bariatric Surgery, Section, Cholecystectomy, Tubal Ligation Additional Past Surgical History / Comment(s): PFO CLOSURE X2, OPEN HEART INFANT, Past Psychological History: Bipolar, Depression Smoking Status: Never smoker Past Alcohol Use History: None Reported Past Drug Use History: None Reported <Cristian Cheng - Last Filed: 05/19/20 03:36> General Exam Limitations: no limitations <Cristian Cheng - Last Filed: 05/19/20 03:36> - General Exam Comments Initial Comments: Constitutional: NAD, AOX3, Pt has pleasant affect. HEENT: NC/AT, trachea midline, neck supple, no lymphadenopathy. External ears appear normal, without discharge. Mucous membranes moist. Eyes PERRLA, EOM intact. There is no scleral icterus. No pallor noted. Cardiopulmonary: RRR, no murmurs, rubs or gallops, no JVD noted. Lungs CTAB in anterior and posterior fuchs. No peripheral edema. Abdominal exam: Abdomen soft and non-distended. Abdomen non-tender to palpation in all 4 quadrants. Bowel sounds active in LLQ. No hepatosplenomegaly. No ecchymosis Neuro: CN II-XII grossly intact. MSK: Full active ROM in upper and lower extremities. (Cristian Cheng) Course Vital Signs 05/19/20 05/19/20 05/19/20 00:59 03:28 06:45 Temperature 100.1 F H 98.5 F Pulse Rate 67 77 Respiratory 16 16 Rate Blood Pressure 146/90 119/75 O2 Sat by Pulse 100 96 Oximetry Medical Decision Making <Cristian Cheng - Last Filed: 05/19/20 03:36> <Joaquin Marcum - Last Filed: 05/19/20 08:24> - Medical Decision Making clear medically. Patient signed out to 35 year old female patient to ED for psych evaluation. Pt signed out to Dr. Markham pending evaluation. (Cristian Cheng) Patient seen by mental health services with plan for discharge. Patient reevaluated. Patient denies suicidal ideation and is comfortable with discharge. Patient does have another person present who is also comfortable with discharge. (Joaquin Marcum) - Lab Data Lab Results 05/19/20 05/19/20 Range/Units 01:27 01:27 Urine Color Yellow Urine Appearance Cloudy H (Clear) Urine pH 5.5 (5.0-8.0) Ur Specific [place] 1.035 (1.001-1.035) Urine Protein 1+ H (Negative) Urine Glucose (UA) Trace H (Negative) Urine Ketones Trace H (Negative) Urine Blood Negative (Negative) Urine Nitrite Negative (Negative) Urine Bilirubin Negative (Negative) Urine Urobilinogen 3.0 (<2.0) mg/dL Ur Leukocyte Esterase Negative (Negative) Urine RBC 2 (0-5) /hpf Urine WBC 1 (0-5) /hpf Ur Squamous Epith Cells 42 H (0-4) /hpf Urine Bacteria Rare H (None) /hpf Urine Mucus Many H (None) /hpf Urine HCG, Qual Not Detected (Not Detectd) Urine Opiates Screen Not Detected (NotDetected) Ur Oxycodone Screen Not Detected (NotDetected) Urine Methadone Screen Not Detected (NotDetected) Ur Propoxyphene Screen Not Detected (NotDetected) Ur Barbiturates Screen Not Detected (NotDetected) U Tricyclic Antidepress Not Detected (NotDetected) Ur Phencyclidine Scrn Not Detected (NotDetected) Ur Amphetamines Screen Not Detected (NotDetected) U Methamphetamines Scrn Not Detected (NotDetected) U Benzodiazepines Scrn Not Detected (NotDetected) Urine Cocaine Screen Not Detected (NotDetected) U Marijuana (THC) Screen Not Detected (NotDetected) Disposition <Cristian Cheng - Last Filed: 05/19/20 03:36> Is patient prescribed a controlled substance at d/c from ED?: No Time of Disposition: 08:24 <Joaquin Marcum - Last Filed: 05/19/20 08:24> Clinical Impression: Depression Disposition: HOME SELF-CARE Condition: Stable Instructions (If sedation given, give patient instructions): Depression (ED), Help Prevent Suicide (ED) Additional Instructions: Please follow-up with mental health services as directed. Please also follow-up to primary care physician in the next couple days for recheck. Return for thoughts of self-harm, worsening symptoms, or other concerns. Referrals: Sherin Hilario MD [Primary Care Provider] - 1-2 days
[2020-05-19 06:45] VITALS: BP 119/75; PULSE 77
== END 2020-05-19 08:39 | disposition home or self-care (01) ==
LOC: EC 00:43
DX: F32.9 Major depressive disorder, single episode, unspecified (principal); E11.9 Type 2 diabetes mellitus without complications; Z79.899 Other long term (current) drug therapy; Z79.84 Long term (current) use of oral hypoglycemic drugs; Z88.8 Allergy status to other drugs, medicaments and biological substances
CPT/HCPCS: 80306; 81001; 81025; 82075; 99285

== ENCOUNTER 2020-07-16 16:12 | Emergency (ER) | payer MEDICARE, OTHER ==
[2020-07-16 16:21] VITALS: TEMP 98.6
[2020-07-16] MEDS ORDERED: SODIUM CHLORIDE 0.9% 1,000 ML IV STA (16:29)
[2020-07-16] MEDS ORDERED: ONDANSETRON 4 MG/2 ML VIAL IVP STA (16:29)
--- NOTE | 2020-07-16 16:47 | ED ---
General Adult HPI - General Chief complaint: Abdominal Pain Stated complaint: abd pain/near syncope Time Seen by Provider: 07/16/20 16:24 Source: patient Mode of arrival: wheelchair Limitations: no limitations - History of Present Illness Initial comments: Dictation was produced using ROSTR dictation software. please excuse any grammatical, word or spelling errors. This patient was cared for during a federal and state declared state of emergen cy secondary to Covid 19 Chief Complaint: 35-year-old female presents with dizziness, nausea vomiting abdominal pain. History of Present Illness: He is a 35-year-old female she presents today with acute onset dizziness, nausea vomiting abdominal pain. Patient states that she's been dry heaving and vomiting mucus. States that as nonbilious not bloody. Patient states that her symptoms began just this morning. Patient reports left lower quadrant abdominal pain. She does feel feverish. Denies any diarrhea. No urinary symptoms. Patient states she feels like the room was spinning. It is worse when she moves around. Patient denies ever having had symptoms like this in the past. Patient's history of cardiac disease. She has had closures of 2 patent foramen ovale's as pediatric patient. Patient had blood work performed by her [employer] recently and has not gotten results for that yet. The ROS documented in this emergency department record has been reviewed and confirmed by me. Those systems with pertinent positive or negative responses have been documented in the HPI. All other systems are other negative and/or noncontributory. PHYSICAL EXAM: General Impression: Alert and oriented x3, acute distress secondary to dizziness. Mildly diaphoretic HEENT: Normocephalic atraumatic, positive nystagmus bilaterally, extra-ocular movements intact, pupils equal and reactive to light bilaterally, mucous membranes moist. Cardiovascular: Heart regular rate and rhythm Chest: Able to complete full sentences, no retractions, no tachypnea Abdomen: abdomen soft, diffuse abdominal tenderness worse in the lower quadrant on the left side, no rebound tenderness non-distended, no organomegaly Musculoskeletal: Pulses present and equal in all extremities, no peripheral edema Motor: no focal deficits noted Neurological: CN II-XII grossly intact, no focal motor or sensory deficits noted Skin: Intact with no visualized rashes Psych: Normal affect and mood ED course: 35-year-old female with multiple comorbidities presents to the emergency department for nausea vomiting dizziness and abdominal pain. Vital signs upon arrival shows blood pressure 186/110, rest of vital signs within acceptable limits. Patient's medications were reviewed. She is taking multiple psychiatric medications along with Lasix and diabetic medications. Present hospitals contacted and she was seen on June 29 for chief complaint of fatigue. She was evaluated there where she also had some dizziness however according to the ED provider note from [facility] she was not able to tell explained was going on. She had stable vitals at that time her neurologic exam suggested that her symptoms were secondary to psychiatric medications or condition or substance use. Patient had drug screen is positive for methamphetamines, amphetamines. Her urinalysis was negative. CBC is unremarkable. Metabolic panel was also unremarkable. She had a level 4.5 alcohol. She was discharged at that time with alleged stable medical condition. EKG interpretation: Ventricular rate 62, sinus rhythm, SC interval 150, QRS 142, QTc 436. No SC prolongation, no QTC prolongation, no ST or T-wave changes noted. EKG compared to 04/07/2020 showing no changes. Overall, this EKG is unremarkable Laboratory evaluation obtained. Mild leukocytosis of 12.3, metabolic panel is unremarkable. Serum osmolality is negative. Urinalysis shows 1+ glucose and trace ketones. Toxicology is positive for amphetamines and methamphetamines. Patient was confronted about her urine drug screen. She does take bupropion does concern for possible cross-reactivity. Patient does report amphetamine use. He did scan the abdomen and pelvis shows no acute processes. Computed tomography scan of the brain shows no acute processes. Patient does report improvement with Valium however symptoms recur rather quickly while in the emergency room. Discussed patient that I would prefer to have patient admitted for severe vertigo symptoms and for a neurology evaluation. Patient states she hasn't point with the neurologist tomorrow. She absolutely does not want to be admitted to the hospital. Told patient that her symptoms could get worse. She is adamant about being discharged. Patient is tolerating oral. She proved to us that she is ambulatory at baseline. This is a reasonable disposition given that patient hurt he has a scheduled appointment with neurology tomorrow. A chin has her significant other at bedside who will help take care of her. She is told to our neurologist tomorrow that she was seen in the emergency department for vertigo. She is told that perhaps this could be a lesion that localizes to her brainstem. - Related Data Home Medications Medication Instructions Recorded Confirmed Carvedilol [Coreg] 6.25 mg PO BID 08/25/19 07/16/20 OXcarbazepine [Trileptal] 300 mg PO BID 08/25/19 07/16/20 lisinopriL [Zestril] 5 mg PO DAILY 08/25/19 07/16/20 buPROPion XL [Wellbutrin Xl] 300 mg PO DAILY 10/24/19 07/16/20 metFORMIN HCL [Glucophage] 500 mg PO DAILY 10/24/19 07/16/20 ARIPiprazole [Abilify] 10 mg PO HS 07/16/20 07/16/20 Previous Rx's Medication Instructions Recorded Meclizine [Antivert] 25 mg PO TID PRN #15 tab 07/16/20 Allergies Allergy/AdvReac Type Severity Reaction Status Date / Time succinylcholine Allergy Severe Unknown Verified 07/16/20 18:27 slobid Allergy Unknown Uncoded 07/16/20 18:27 Childhood Review of Systems ROS Statement: Those systems with pertinent positive or pertinent negative responses have been documented in the HPI. ROS Other: All systems not noted in ROS Statement are negative. Past Medical History Past Medical History: Coronary Artery Disease (CAD), Diabetes Mellitus History of Any Multi-Drug Resistant Organisms: None Reported Past Surgical History: Bariatric Surgery, Section, Cholecystectomy, Tubal Ligation Additional Past Surgical History / Comment(s): PFO CLOSURE X2, OPEN HEART INFANT, Past Psychological History: Bipolar, Depression Smoking Status: Never smoker Past Alcohol Use History: None Reported Past Drug Use History: None Reported General Exam Limitations: no limitations Course Vital Signs 07/16/20 07/16/20 16:19 18:21 Temperature 98.6 F Pulse Rate 82 70 Respiratory 20 18 Rate Blood Pressure 186/110 151/95 O2 Sat by Pulse 100 98 Oximetry Medical Decision Making - Lab Data Result diagrams: 07/16/20 16:32 07/16/20 16:32 Lab Results 07/16/20 07/16/20 07/16/20 Range/Units 16:32 16:32 16:32 WBC 12.3 H (3.8-10.6) k/uL RBC 5.47 H (3.80-5.40) m/uL Hgb 15.3 (11.4-16.0) gm/dL Hct 46.1 H (34.0-46.0) % MCV 84.3 (80.0-100.0) fL MCH 28.0 (25.0-35.0) pg MCHC 33.2 (31.0-37.0) g/dL RDW 13.3 (11.5-15.5) % Plt Count 297 (150-450) k/uL MPV 7.2 Neutrophils % 73 % Lymphocytes % 21 % Monocytes % 3 % Eosinophils % 1 % Basophils % 1 % Neutrophils # 9.0 H (1.3-7.7) k/uL Lymphocytes # 2.5 (1.0-4.8) k/uL Monocytes # 0.4 (0-1.0) k/uL Eosinophils # 0.1 (0-0.7) k/uL Basophils # 0.1 (0-0.2) k/uL Sodium 143 (137-145) mmol/L Potassium 4.2 (3.5-5.1) mmol/L Chloride 108 H (98-107) mmol/L Carbon Dioxide 25 (22-30) mmol/L Anion Gap 10 mmol/L BUN 12 (7-17) mg/dL Creatinine 0.55 (0.52-1.04) mg/dL Est GFR (CKD-EPI)AfAm >90 (>60 ml/min/1.73 sqM) Est GFR (CKD-EPI)NonAf >90 (>60 ml/min/1.73 sqM) Glucose 187 H (74-99) mg/dL Osmolality 301 (280-301) mosm/kg Calcium 10.6 H (8.4-10.2) mg/dL Total Bilirubin 0.3 (0.2-1.3) mg/dL AST 22 (14-36) U/L ALT 24 (4-34) U/L Alkaline Phosphatase 102 (38-126) U/L Total Protein 8.3 H (6.3-8.2) g/dL Albumin 4.9 (3.5-5.0) g/dL Lipase 105 (23-300) U/L Urine Color Urine Appearance (Clear) Urine pH (5.0-8.0) Ur Specific Chase (1.001-1.035) Urine Protein (Negative) Urine Glucose (UA) (Negative) Urine Ketones (Negative) Urine Blood (Negative) Urine Nitrite (Negative) Urine Bilirubin (Negative) Urine Urobilinogen (<2.0) mg/dL Ur Leukocyte Esterase (Negative) Urine HCG, Qual (Not Detectd) Urine Opiates Screen (NotDetected) Ur Oxycodone Screen (NotDetected) Urine Methadone Screen (NotDetected) Ur Propoxyphene Screen (NotDetected) Ur Barbiturates Screen (NotDetected) U Tricyclic Antidepress (NotDetected) Ur Phencyclidine Scrn (NotDetected) Ur Amphetamines Screen (NotDetected) U Methamphetamines Scrn (NotDetected) U Benzodiazepines Scrn (NotDetected) Urine Cocaine Screen (NotDetected) U Marijuana (THC) Screen (NotDetected) Serum Alcohol mg/dL 07/16/20 07/16/20 07/16/20 Range/Units 17:10 17:11 17:11 WBC (3.8-10.6) k/uL RBC (3.80-5.40) m/uL Hgb (11.4-16.0) gm/dL Hct (34.0-46.0) % MCV (80.0-100.0) fL MCH (25.0-35.0) pg MCHC (31.0-37.0) g/dL RDW (11.5-15.5) % Plt Count (150-450) k/uL MPV Neutrophils % % Lymphocytes % % Monocytes % % Eosinophils % % Basophils % % Neutrophils # (1.3-7.7) k/uL Lymphocytes # (1.0-4.8) k/uL Monocytes # (0-1.0) k/uL Eosinophils # (0-0.7) k/uL Basophils # (0-0.2) k/uL Sodium (137-145) mmol/L Potassium (3.5-5.1) mmol/L Chloride (98-107) mmol/L Carbon Dioxide (22-30) mmol/L Anion Gap mmol/L BUN (7-17) mg/dL Creatinine (0.52-1.04) mg/dL Est GFR (CKD-EPI)AfAm (>60 ml/min/1.73 sqM) Est GFR (CKD-EPI)NonAf (>60 ml/min/1.73 sqM) Glucose (74-99) mg/dL Osmolality (280-301) mosm/kg Calcium (8.4-10.2) mg/dL Total Bilirubin (0.2-1.3) mg/dL AST (14-36) U/L ALT (4-34) U/L Alkaline Phosphatase (38-126) U/L Total Protein (6.3-8.2) g/dL Albumin (3.5-5.0) g/dL Lipase (23-300) U/L Urine Color Yellow Urine Appearance Clear (Clear) Urine pH 7.5 (5.0-8.0) Ur Specific Chase 1.019 (1.001-1.035) Urine Protein Negative (Negative) Urine Glucose (UA) 1+ H (Negative) Urine Ketones Trace H (Negative) Urine Blood Negative (Negative) Urine Nitrite Negative (Negative) Urine Bilirubin Negative (Negative) Urine Urobilinogen <2.0 (<2.0) mg/dL Ur Leukocyte Esterase Negative (Negative) Urine HCG, Qual Not Detected (Not Detectd) Urine Opiates Screen Not Detected (NotDetected) Ur Oxycodone Screen Not Detected (NotDetected) Urine Methadone Screen Not Detected (NotDetected) Ur Propoxyphene Screen Not Detected (NotDetected) Ur Barbiturates Screen Not Detected (NotDetected) U Tricyclic Antidepress Not Detected (NotDetected) Ur Phencyclidine Scrn Not Detected (NotDetected) Ur Amphetamines Screen Detected H (NotDetected) U Methamphetamines Scrn Detected H (NotDetected) U Benzodiazepines Scrn Not Detected (NotDetected) Urine Cocaine Screen Not Detected (NotDetected) U Marijuana (THC) Screen Not Detected (NotDetected) Serum Alcohol mg/dL 07/16/20 Range/Units 17:23 WBC (3.8-10.6) k/uL RBC (3.80-5.40) m/uL Hgb (11.4-16.0) gm/dL Hct (34.0-46.0) % MCV (80.0-100.0) fL MCH (25.0-35.0) pg MCHC (31.0-37.0) g/dL RDW (11.5-15.5) % Plt Count (150-450) k/uL MPV Neutrophils % % Lymphocytes % % Monocytes % % Eosinophils % % Basophils % % Neutrophils # (1.3-7.7) k/uL Lymphocytes # (1.0-4.8) k/uL Monocytes # (0-1.0) k/uL Eosinophils # (0-0.7) k/uL Basophils # (0-0.2) k/uL Sodium (137-145) mmol/L Potassium (3.5-5.1) mmol/L Chloride (98-107) mmol/L Carbon Dioxide (22-30) mmol/L Anion Gap mmol/L BUN (7-17) mg/dL Creatinine (0.52-1.04) mg/dL Est GFR (CKD-EPI)AfAm (>60 ml/min/1.73 sqM) Est GFR (CKD-EPI)NonAf (>60 ml/min/1.73 sqM) Glucose (74-99) mg/dL Osmolality (280-301) mosm/kg Calcium (8.4-10.2) mg/dL Total Bilirubin (0.2-1.3) mg/dL AST (14-36) U/L ALT (4-34) U/L Alkaline Phosphatase (38-126) U/L Total Protein (6.3-8.2) g/dL Albumin (3.5-5.0) g/dL Lipase (23-300) U/L Urine Color Urine Appearance (Clear) Urine pH (5.0-8.0) Ur Specific Chase (1.001-1.035) Urine Protein (Negative) Urine Glucose (UA) (Negative) Urine Ketones (Negative) Urine Blood (Negative) Urine Nitrite (Negative) Urine Bilirubin (Negative) Urine Urobilinogen (<2.0) mg/dL Ur Leukocyte Esterase (Negative) Urine HCG, Qual (Not Detectd) Urine Opiates Screen (NotDetected) Ur Oxycodone Screen (NotDetected) Urine Methadone Screen (NotDetected) Ur Propoxyphene Screen (NotDetected) Ur Barbiturates Screen (NotDetected) U Tricyclic Antidepress (NotDetected) Ur Phencyclidine Scrn (NotDetected) Ur Amphetamines Screen (NotDetected) U Methamphetamines Scrn (NotDetected) U Benzodiazepines Scrn (NotDetected) Urine Cocaine Screen (NotDetected) U Marijuana (THC) Screen (NotDetected) Serum Alcohol <10 mg/dL Disposition Clinical Impression: Vertigo Disposition: HOME SELF-CARE Condition: Fair Instructions (If sedation given, give patient instructions): Vertigo (ED) Prescriptions: Meclizine [Antivert] 25 mg PO TID PRN #15 tab PRN Reason: dizziness Is patient prescribed a controlled substance at d/c from ED?: No Referrals: Sherin Hilario MD [Primary Care Provider] - 1-2 days Time of Disposition: 19:04
[2020-07-16 16:52] LABS: Basophils # (A) 0.1 k/uL (0-0.2); Basophils % (A) 1 %; Eosinophils # (A) 0.1 k/uL (0-0.7); Eosinophils % (A) 1 %; HCT 46.1 % (34.0-46.0); HGB 15.3 gm/dL (11.4-16.0); Lymphocytes # (A) 2.5 k/uL (1.0-4.8); Lymphocytes % (A) 21 %; MCHC 33.2 g/dL (31.0-37.0); MCV 84.3 fL (80.0-100.0); Mean Platelet Volume 7.2; Monocytes # (A) 0.4 k/uL (0-1.0); Monocytes % (A) 3 %; Neutrophils % (A) 73 %; Platelet Count 297 k/uL (150-450); RBC 5.47 m/uL (3.80-5.40); RDW 13.3 % (11.5-15.5); WBC 12.3 k/uL (3.8-10.6)
[2020-07-16] MEDS ORDERED: METOCLOPRAMIDE 5 MG/ML 2 ML VIAL IVP STA (17:00)
[2020-07-16 17:01] LABS: ALT 24 U/L (4-34); AST 22 U/L (14-36); African American GFR (CKD) >90 (>60 ml/min/1.73 sqM); Albumin 4.9 g/dL (3.5-5.0); Alkaline Phosphatase 102 U/L (38-126); Anion Gap 10 mmol/L; Blood Urea Nitrogen 12 mg/dL (7-17); Calcium 10.6 mg/dL (8.4-10.2); Carbon Dioxide 25 mmol/L (22-30); Chloride 108 mmol/L (98-107); Glucose 187 mg/dL (74-99); Lipase 105 U/L (23-300); Non-African American GFR(CKD) >90 (>60 ml/min/1.73 sqM); Potassium 4.2 mmol/L (3.5-5.1); Sodium 143 mmol/L (137-145); Total Bilirubin 0.3 mg/dL (0.2-1.3); Total Protein 8.3 g/dL (6.3-8.2)
[2020-07-16] MEDS ORDERED: DIAZEPAM 5 MG/ML 2 ML INJ IVP STA ×2 (17:01→18:47)
[2020-07-16 17:22] LABS: Appearance,Urine Clear (Clear); Bilirubin,Urine Negative (Negative); Blood,Urine Negative (Negative); Color,Urine Yellow; Glucose,Urine (UA) 1+ (Negative); Ketones,Urine Trace (Negative); Leukocyte Esterase,Urine Negative (Negative); Nitrite,Urine Negative (Negative); PH, Urine 7.5 (5.0-8.0); Protein,Urine Negative (Negative); Specific Gravity,Urine 1.019 (1.001-1.035); Urobilinogen,Urine <2.0 mg/dL (<2.0)
--- NOTE | 2020-07-16 18:41 | CT ---
EXAMINATION TYPE: CT brain wo con DATE OF EXAM: 07/16/2020 COMPARISON: 09/23/2009 HISTORY: Dizziness and near syncope. CT DLP: 1055.4 mGycm Automated exposure control for dose reduction was used. Exam performed without contrast. Ventricles of normal size. There is no mass effect nor midline shift. There is no sign of intracrania l hemorrhage. Calvarium is intact. There is no evidence of cerebral edema. IMPRESSION: Negative unenhanced head CT scan.
[2020-07-16 18:42] LABS: Amphetamine Screen,Urine Detected (NotDetected); Barbiturate Screen,Urine Not Detected (NotDetected); Benzodiazepines Screen,Urine Not Detected (NotDetected); Cocaine Screen,Urine Not Detected (NotDetected); Methadone Screen, Urine Not Detected (NotDetected); Opiate Screen,Urine Not Detected (NotDetected); Oxycodone Screen, Urine Not Detected (NotDetected); Phencyclidine Screen,Urine Not Detected (NotDetected); Tricyclic Antidepressant,Urine Not Detected (NotDetected); Urn Cannabinoid Scrn Not Detected (NotDetected)
--- NOTE | 2020-07-16 18:47 | CT ---
EXAMINATION TYPE: CT abdomen pelvis w con DATE OF EXAM: 07/16/2020 COMPARISON: 08/25/2019 HISTORY: Left lower quadrant pain. CT DLP: 2265.9 mGycm Automated exposure control for dose reduction was used. CONTRAST: Performed with IV Contrast, patient injected with 100 mL of Isovue 300. Lung bases are clear. There is no pleural effusion. Heart appears normal. Liver spleen pancreas appear normal. There are clips from cholecystectomy. There is surgical clips at the stomach. There is no adrenal mass. Kidneys show satisfactory contrast opacification. There is no hydronephrosi s. Ureters are not dilated. There is no retroperitoneal adenopathy. Bladder distends smoothly. Uterus is anteverted. There is a 2 cm cervical cyst. There is no inguinal hernia. There is no free fluid in the pelvis. Appendix is posterior and lateral and appears normal. There is no mesenteric edema. Ther e is no ascites or free air. There is no bowel obstruction. Lumbar vertebra have normal alignment. There is no compression fracture. Bony pelvis is intact. Hip j oints are intact. There are spondylotic changes in the lumbar spine with posterior disc herniation se en at L4-5 and L5-S1 and T11-12. IMPRESSION: No acute abnormality of the abdomen pelvis. Normal appendix. I do not see a cause for left lower quad rant pain. No adverse change compared to old exam.
[2020-07-16 18:54] VITALS: BP 151/95; PULSE 70; RESP 18
== END 2020-07-16 19:19 | disposition home or self-care (01) ==
LOC: EC 16:12
DX: R42 Dizziness and giddiness (principal); R11.2 Nausea with vomiting, unspecified; R10.9 Unspecified abdominal pain; R53.83 Other fatigue; I25.10 Atherosclerotic heart disease of native coronary artery without angina pectoris; E11.9 Type 2 diabetes mellitus without complications; F15.90 Other stimulant use, unspecified, uncomplicated; D72.829 Elevated white blood cell count, unspecified; F31.9 Bipolar disorder, unspecified; Z79.84 Long term (current) use of oral hypoglycemic drugs; Z88.8 Allergy status to other drugs, medicaments and biological substances; Z79.899 Other long term (current) drug therapy; Z98.84 Bariatric surgery status
CPT/HCPCS: 36415; 93005; 83930; 80053; 83690; 85025; 81003; 81025; 80306; 70450; 74177; 99284; 96374; 96375 ×2; 96361; G0480; J2765; J3360; J2405; Q9967; 80320; 99285

== ENCOUNTER → 2020-07-19 | Outpatient (CLI) | payer MEDICARE, OTHER | END | disposition home or self-care (01) | LOC: RADMRIMAIN 21:11 | PROVIDERS: ATTEND Family Medicine | DX: Z53.9 Procedure and treatment not carried out, unspecified reason (principal) ==

== ENCOUNTER 2020-08-12 15:25 | Emergency (ER) | payer MEDICARE, OTHER ==
--- NOTE | 2020-08-12 15:57 | ED ---
General Adult HPI - General Chief complaint: Psychiatric Symptoms Stated complaint: Mental Health Time Seen by Provider: 08/12/20 15:44 Source: patient, EMS Mode of arrival: EMS Limitations: no limitations - History of Present Illness Initial comments: Patient presents the ED by ambulance for evaluation. Patient states that she was at the [facility] 8 week or maybe theater watching a movie when she became unresponsive. Patient states that she was alert, but she could not move anything or respond. ED nursing staff/EPS nurse report the patient has a his tory of faking similar symptoms in the past, and she has a strong psychiatric history. Patient states that she now feels fine. Patient admits to having had similar symptoms in the past. Patient denies medication noncompliance. Patient denies alcohol or drug abuse. Patient denies medication abuse or overdose. Patient denies having any pain, trauma or injury, fever or chills, headache, focal numbness/weakness/neuro deficit, visual changes, chest pain, dyspnea, cough or cold symptoms, palpitations, dizziness, syncope, abdominal pain, nausea/vomiting/diarrhea, bloody or melanotic stool, dysuria or urinary symptoms, or any other symptoms or complaints. - Related Data Home Medications Medication Instructions Recorded Confirmed OXcarbazepine [Trileptal] 300 mg PO BID 08/25/19 08/12/20 lisinopriL [Zestril] 5 mg PO DAILY 08/25/19 08/12/20 buPROPion XL [Wellbutrin Xl] 300 mg PO DAILY 10/24/19 08/12/20 metFORMIN HCL [Glucophage] 500 mg PO DAILY 10/24/19 08/12/20 ARIPiprazole [Abilify] 10 mg PO DAILY 07/16/20 08/12/20 Magnesium 200 mg PO DAILY 08/12/20 08/12/20 Previous Rx's Medication Instructions Recorded Meclizine [Antivert] 25 mg PO TID PRN #15 tab 07/16/20 Allergies Allergy/AdvReac Type Severity Reaction Status Date / Time succinylcholine Allergy Severe Unknown Verified 08/12/20 17:32 slobid Allergy Unknown Uncoded 07/16/20 18:27 Childhood Review of Systems ROS Statement: Those systems with pertinent positive or pertinent negative responses have been documented in the HPI. ROS Other: All systems not noted in ROS Statement are negative. Past Medical History Past Medical History: Coronary Artery Disease (CAD), Diabetes Mellitus History of Any Multi-Drug Resistant Organisms: None Reported Past Surgical History: Bariatric Surgery, Section, Cholecystectomy, Tubal Ligation Additional Past Surgical History / Comment(s): PFO CLOSURE X2, OPEN HEART , Past Psychological History: Bipolar, Depression Smoking Status: Never smoker Past Alcohol Use History: None Reported Past Drug Use History: None Reported General Exam Limitations: no limitations General appearance: alert, in no apparent distress Head exam: Present: atraumatic, normocephalic Eye exam: Present: normal appearance, PERRL, EOMI ENT exam: Present: normal oropharynx, mucous membranes moist Neck exam: Present: other (Trachea is in midline). Absent: tenderness, meningismus Respiratory exam: Present: normal lung sounds bilaterally. Absent: respiratory distress, wheezes, rales, rhonchi, stridor Cardiovascular Exam: Present: regular rate, normal rhythm, normal heart sounds, other (Normal radial pulses bilaterally) GI/Abdominal exam: Present: soft. Absent: distended, tenderness, guarding Extremities exam: Present: full ROM. Absent: tenderness, pedal edema, calf tenderness Neurological exam: Present: alert, oriented X3, CN II-XII intact. Absent: motor sensory deficit Psychiatric exam: Present: normal affect Skin exam: Present: warm, dry, intact, normal color Course Vital Signs 08/12/20 15:34 Temperature 98.9 F Pulse Rate 77 Respiratory 17 Rate Blood Pressure 148/87 O2 Sat by Pulse 100 Oximetry - Reevaluation(s) Reevaluation #1: 08/12/20 18:15 Patient has been evaluated by EPS nurse in the ED, and she recommends outpatient psychiatric follow-up. 08/12/20 18:18 Patient remains alert and responsive. Patient continues to be breathing comfortably. Patient continues to deny having any symptoms while in the ED. Patient and boyfriend are aware the patient's test results, and patient feels comfortable going home with her boyfriend at this time. Patient was clearly explained return and follow-up instructions, and she was instructed to have a low threshold for return to the emergency department. Patient was also inst ructed to follow up closely with her primary care provider, as well as her psychiatrist. Patient feels comfortable with this plan. EKG Findings - EKG Comments: EKG Findings:: Normal sinus rhythm, ventricular rate of 63 bpm, no ectopy, nonspecific intraventricular conduction delay, normal [place] interval, normal QT interval, no significant change when compared to 07/16/2020 EKG Medical Decision Making - Medical Decision Making Patient's head CT and labs are fairly unremarkable. Patient has had similar "unresponsive episodes" in the past. I do not suspect that an emergent medical condition is the etiology for the patient's episode today. I suspect that a psychiatric etiology is more likely. - Lab Data Result diagrams: 08/12/20 16:19 08/12/20 16:19 Lab Results 08/12/20 08/12/20 08/12/20 Range/Units 16:03 16:17 16:19 WBC 8.8 (3.8-10.6) k/uL RBC 4.88 (3.80-5.40) m/uL Hgb 14.0 (11.4-16.0) gm/dL Hct 41.6 (34.0-46.0) % MCV 85.2 (80.0-100.0) fL MCH 28.8 (25.0-35.0) pg MCHC 33.8 (31.0-37.0) g/dL RDW 13.3 (11.5-15.5) % Plt Count 254 (150-450) k/uL MPV 7.5 Neutrophils % 62 % Lymphocytes % 30 % Monocytes % 4 % Eosinophils % 2 % Basophils % 1 % Neutrophils # 5.5 (1.3-7.7) k/uL Lymphocytes # 2.6 (1.0-4.8) k/uL Monocytes # 0.4 (0-1.0) k/uL Eosinophils # 0.2 (0-0.7) k/uL Basophils # 0.1 (0-0.2) k/uL Sodium (137-145) mmol/L Potassium (3.5-5.1) mmol/L Chloride (98-107) mmol/L Carbon Dioxide (22-30) mmol/L Anion Gap mmol/L BUN (7-17) mg/dL Creatinine (0.52-1.04) mg/dL Est GFR (CKD-EPI)AfAm (>60 ml/min/1.73 sqM) Est GFR (CKD-EPI)NonAf (>60 ml/min/1.73 sqM) Glucose (74-99) mg/dL POC Glucose (mg/dL) 118 H (75-99) mg/dL POC Glu Xray Tech ID Diane Morel Calcium (8.4-10.2) mg/dL Total Bilirubin (0.2-1.3) mg/dL AST (14-36) U/L ALT (4-34) U/L Alkaline Phosphatase (38-126) U/L Total Protein (6.3-8.2) g/dL Albumin (3.5-5.0) g/dL HCG, Qual Urine Opiates Screen Not Detected (NotDetected) Ur Oxycodone Screen Not Detected (NotDetected) Urine Methadone Screen Not Detected (NotDetected) Ur Propoxyphene Screen Not Detected (NotDetected) Ur Barbiturates Screen Not Detected (NotDetected) U Tricyclic Antidepress Not Detected (NotDetected) Ur Phencyclidine Scrn Not Detected (NotDetected) Ur Amphetamines Screen Not Detected (NotDetected) U Methamphetamines Scrn Not Detected (NotDetected) U Benzodiazepines Scrn Detected H (NotDetected) Urine Cocaine Screen Not Detected (NotDetected) U Marijuana (THC) Screen Not Detected (NotDetected) 08/12/20 Range/Units 16:19 WBC (3.8-10.6) k/uL RBC (3.80-5.40) m/uL Hgb (11.4-16.0) gm/dL Hct (34.0-46.0) % MCV (80.0-100.0) fL MCH (25.0-35.0) pg MCHC (31.0-37.0) g/dL RDW (11.5-15.5) % Plt Count (150-450) k/uL MPV Neutrophils % % Lymphocytes % % Monocytes % % Eosinophils % % Basophils % % Neutrophils # (1.3-7.7) k/uL Lymphocytes # (1.0-4.8) k/uL Monocytes # (0-1.0) k/uL Eosinophils # (0-0.7) k/uL Basophils # (0-0.2) k/uL Sodium 140 (137-145) mmol/L Potassium 3.9 (3.5-5.1) mmol/L Chloride 103 (98-107) mmol/L Carbon Dioxide 31 H (22-30) mmol/L Anion Gap 6 mmol/L BUN 14 (7-17) mg/dL Creatinine 0.55 (0.52-1.04) mg/dL Est GFR (CKD-EPI)AfAm >90 (>60 ml/min/1.73 sqM) Est GFR (CKD-EPI)NonAf >90 (>60 ml/min/1.73 sqM) Glucose 124 H (74-99) mg/dL POC Glucose (mg/dL) (75-99) mg/dL POC Glu Xray Tech ID Calcium 9.7 (8.4-10.2) mg/dL Total Bilirubin 0.4 (0.2-1.3) mg/dL AST 21 (14-36) U/L ALT 22 (4-34) U/L Alkaline Phosphatase 83 (38-126) U/L Total Protein 7.7 (6.3-8.2) g/dL Albumin 4.5 (3.5-5.0) g/dL HCG, Qual Not Detected Urine Opiates Screen (NotDetected) Ur Oxycodone Screen (NotDetected) Urine Methadone Screen (NotDetected) Ur Propoxyphene Screen (NotDetected) Ur Barbiturates Screen (NotDetected) U Tricyclic Antidepress (NotDetected) Ur Phencyclidine Scrn (NotDetected) Ur Amphetamines Screen (NotDetected) U Methamphetamines Scrn (NotDetected) U Benzodiazepines Scrn (NotDetected) Urine Cocaine Screen (NotDetected) U Marijuana (THC) Screen (NotDetected) - Radiology Data Radiology results: report reviewed (Noncontrast head CT: Negative unenhanced head CT scan) Disposition Clinical Impression: Unresponsive episode Narrative: Reported unresponsive episode Disposition: HOME SELF-CARE Condition: Stable Instructions (If sedation given, give patient instructions): Medical Clearance for Psychiatric Care (ED) Additional Instructions: Return to the ER immediately should you develop any significant pain, a fever, chest pain, shortness of breath, numbness or weakness, feeling dizzy or faint, or new or worsening symptoms. Follow up closely with your primary care provider, as well as your psychiatrist. Is patient prescribed a controlled substance at d/c from ED?: No Referrals: Sherin Hilario MD [Primary Care Provider] - 1-2 days Time of Disposition: 18:16
[2020-08-12 16:05] LABS: Glucose,Whole Blood 118 mg/dL (75-99)
[2020-08-12 16:32] LABS: Basophils # (A) 0.1 k/uL (0-0.2); Basophils % (A) 1 %; Eosinophils # (A) 0.2 k/uL (0-0.7); Eosinophils % (A) 2 %; HCT 41.6 % (34.0-46.0); Lymphocytes # (A) 2.6 k/uL (1.0-4.8); Lymphocytes % (A) 30 %; MCH 28.8 pg (25.0-35.0); MCHC 33.8 g/dL (31.0-37.0); MCV 85.2 fL (80.0-100.0); Mean Platelet Volume 7.5; Monocytes # (A) 0.4 k/uL (0-1.0); Monocytes % (A) 4 %; Neutrophils # (A) 5.5 k/uL (1.3-7.7); Neutrophils % (A) 62 %; Platelet Count 254 k/uL (150-450); RBC 4.88 m/uL (3.80-5.40); RDW 13.3 % (11.5-15.5); WBC 8.8 k/uL (3.8-10.6)
[2020-08-12 16:43] LABS: Amphetamine Screen,Urine Not Detected (NotDetected); Barbiturate Screen,Urine Not Detected (NotDetected); Benzodiazepines Screen,Urine Detected (NotDetected); Cocaine Screen,Urine Not Detected (NotDetected); Methadone Screen, Urine Not Detected (NotDetected); Opiate Screen,Urine Not Detected (NotDetected); Oxycodone Screen, Urine Not Detected (NotDetected); Phencyclidine Screen,Urine Not Detected (NotDetected); Tricyclic Antidepressant,Urine Not Detected (NotDetected); Urn Cannabinoid Scrn Not Detected (NotDetected)
[2020-08-12 16:51] LABS: ALT 22 U/L (4-34); AST 21 U/L (14-36); African American GFR (CKD) >90 (>60 ml/min/1.73 sqM); Albumin 4.5 g/dL (3.5-5.0); Alkaline Phosphatase 83 U/L (38-126); Anion Gap 6 mmol/L; Blood Urea Nitrogen 14 mg/dL (7-17); Calcium 9.7 mg/dL (8.4-10.2); Carbon Dioxide 31 mmol/L (22-30); Chloride 103 mmol/L (98-107); Glucose 124 mg/dL (74-99); Non-African American GFR(CKD) >90 (>60 ml/min/1.73 sqM); Potassium 3.9 mmol/L (3.5-5.1); Sodium 140 mmol/L (137-145); Total Bilirubin 0.4 mg/dL (0.2-1.3); Total Protein 7.7 g/dL (6.3-8.2)
[2020-08-12 16:52] LABS: HCG,Qualitative Serum Not Detected
--- NOTE | 2020-08-12 17:19 | CT ---
EXAMINATION TYPE: CT brain wo con DATE OF EXAM: 08/12/2020 COMPARISON: 07/16/2020 HISTORY: Syncopal episode. CT DLP: 1121.4 mGycm Automated exposure control for dose reduction was used. Ventricles have normal size. There is no mass effect nor midline shift. There is no sign of intracran ial hemorrhage. Calvarium is intact. There is no evidence of cerebral edema. IMPRESSION: Negative unenhanced head CT scan. No change. This retention cyst noted in both maxillary sinuses. No change.
[2020-08-12 18:45] VITALS: BP 128/78; PULSE 76; RESP 20; TEMP 98
== END 2020-08-12 18:46 | disposition home or self-care (01) ==
LOC: EC 15:25
DX: E11.9 Type 2 diabetes mellitus without complications (principal); I25.10 Atherosclerotic heart disease of native coronary artery without angina pectoris; F32.9 Major depressive disorder, single episode, unspecified; Z79.84 Long term (current) use of oral hypoglycemic drugs; Z79.899 Other long term (current) drug therapy; Z88.8 Allergy status to other drugs, medicaments and biological substances; Z88.4 Allergy status to anesthetic agent
CPT/HCPCS: 36415; 70450; 80053; 80306; 82075; 84703; 85025; 93005; 99285

== ENCOUNTER 2021-03-14 17:19 | Emergency (ER) | payer MEDICARE, OTHER ==
[2021-03-14 18:38] LABS: Basophils % (A) 0 %; Eosinophils # (A) 0.2 k/uL (0-0.7); Eosinophils % (A) 2 %; HCT 39.8 % (34.0-46.0); HGB 13.3 gm/dL (11.4-16.0); Lymphocytes % (A) 29 %; MCH 28.8 pg (25.0-35.0); MCHC 33.3 g/dL (31.0-37.0); MCV 86.3 fL (80.0-100.0); Mean Platelet Volume 8.5; Monocytes # (A) 0.6 k/uL (0-1.0); Monocytes % (A) 6 %; Neutrophils # (A) 6.3 k/uL (1.3-7.7); Neutrophils % (A) 61 %; Platelet Count 238 k/uL (150-450); RBC 4.61 m/uL (3.80-5.40); RDW 13.8 % (11.5-15.5); WBC 10.3 k/uL (3.8-10.6)
[2021-03-14 18:42] LABS: Appearance,Urine Clear (Clear); Bilirubin,Urine Negative (Negative); Blood,Urine Negative (Negative); Color,Urine Yellow; Glucose,Urine (UA) Negative (Negative); Hyaline Casts,Urine 4 /lpf (0-2); Ketones,Urine 2+ (Negative); Leukocyte Esterase,Urine Negative (Negative); Mucus,Urine Moderate /hpf; Nitrite,Urine Negative (Negative); PH, Urine 5.5 (5.0-8.0); Protein,Urine 1+ (Negative); RBC,Urine <1 /hpf (0-5); Specific Gravity,Urine 1.029 (1.001-1.035); Squamous Epithelial Cell,Urine 2 /hpf (0-4); Urobilinogen,Urine <2.0 mg/dL (<2.0); WBC,Urine 1 /hpf (0-5)
[2021-03-14 18:47] LABS: African American GFR (CKD) >90 (>60 ml/min/1.73 sqM); Anion Gap 9 mmol/L; Blood Urea Nitrogen 15 mg/dL (7-17); Carbon Dioxide 22 mmol/L (22-30); Chloride 105 mmol/L (98-107); Glucose 103 mg/dL (74-99); Non-African American GFR(CKD) >90 (>60 ml/min/1.73 sqM); Potassium 4.1 mmol/L (3.5-5.1); Sodium 136 mmol/L (137-145)
[2021-03-14 18:50] LABS: Amphetamine Screen,Urine Not Detected (NotDetected); Barbiturate Screen,Urine Not Detected (NotDetected); Benzodiazepines Screen,Urine Not Detected (NotDetected); Cocaine Screen,Urine Not Detected (NotDetected); Methadone Screen, Urine Not Detected (NotDetected); Opiate Screen,Urine Not Detected (NotDetected); Oxycodone Screen, Urine Not Detected (NotDetected); Phencyclidine Screen,Urine Not Detected (NotDetected); Tricyclic Antidepressant,Urine Not Detected (NotDetected); Urn Cannabinoid Scrn Detected (NotDetected)
--- NOTE | 2021-03-14 22:42 | ED ---
General Adult HPI - General Chief complaint: Neuro Symptoms/Deficit Stated complaint: Altered Mental Status Time Seen by Provider: 03/14/21 17:39 Source: patient, family, RN notes reviewed Mode of arrival: EMS Limitations: altered mental status, physical limitation - History of Present Illness Initial comments: Patient is a 36-year-old female that presents emergency department complaining of lethargic episode. Significant other notes the patient quit taking her bipolar medications and August and has had similar episodes to this previously. Upon evaluation and exam patient appeared to be fakes sleeping and it took moderate effort wake her up. Patient was otherwise a well-appearing 36-year-old female in no apparent pain or distress. She did note that she woke up this morning and started talking slower without any reason. She denied any chest pain shortness breath headache nausea vomiting diarrhea constipation fever fatigue chills. - Related Data Home Medications Medication Instructions Recorded Confirmed Loratadine 10 mg PO DAILY 03/14/21 03/14/21 Polyethylene Glycol 3350 [Clearlax] 17 gm PO DAILY 03/14/21 03/14/21 Allergies Allergy/AdvReac Type Severity Reaction Status Date / Time succinylcholine Allergy Severe Unknown Verified 03/14/21 18:14 slobid Allergy Unknown Uncoded 03/14/21 17:33 Childhood Review of Systems ROS Statement: Those systems with pertinent positive or pertinent negative responses have been documented in the HPI. ROS Other: All systems not noted in ROS Statement are negative. Past Medical History Past Medical History: Coronary Artery Disease (CAD), CVA/TIA Additional Past Medical History / Comment(s): 2007 after child History of Any Multi-Drug Resistant Organisms: None Reported Past Surgical History: Bariatric Surgery, Section, Cholecystectomy, Tubal Ligation Additional Past Surgical History / Comment(s): PFO CLOSURE X2, OPEN HEART , Past Psychological History: Bipolar, Depression Smoking Status: Never smoker Past Alcohol Use History: None Reported Past Drug Use History: None Reported General Exam Limitations: altered mental status, physical limitation General appearance: alert, in no apparent distress, obese Head exam: Present: atraumatic, normocephalic, normal inspection Eye exam: Present: normal appearance, PERRL, EOMI. Absent: scleral icterus, conjunctival injection, periorbital swelling Neck exam: Present: normal inspection Respiratory exam: Present: normal lung sounds bilaterally. Absent: respiratory distress, wheezes, rales, rhonchi, stridor Cardiovascular Exam: Present: regular rate, normal rhythm, normal heart sounds. Absent: systolic murmur, diastolic murmur, rubs, gallop, clicks GI/Abdominal exam: Present: soft, normal bowel sounds. Absent: distended, tenderness, guarding, rebound, rigid Extremities exam: Present: normal inspection, full ROM, normal capillary refill. Absent: tenderness, pedal edema, joint swelling, calf tenderness Neurological exam: Present: alert, oriented X3 Psychiatric exam: Present: depressed, flat affect. Absent: homicidal ideation, suicidal ideation Skin exam: Present: warm, dry, intact, normal color. Absent: rash Course Vital Signs 03/14/21 03/14/21 17:28 22:39 Temperature 97.8 F Pulse Rate 63 81 Respiratory 18 18 Rate Blood Pressure 133/79 115/74 O2 Sat by Pulse 100 98 Oximetry Medical Decision Making - Medical Decision Making 36-year-old female with a psychiatric medical history coming in due to a lethargic episode. Significant other notes that she has had these in the past. Labs, urine drug screen, EPS consult ordered. Labs unremarkable. Drug screen shows positive results for THC. EPS evaluated and we'll send patient home with a safety plan. Case discussed with Dr. Mercado, patient can discharge home. - Lab Data Result diagrams: 03/14/21 18:11 03/14/21 18:11 Lab Results 03/14/21 03/14/21 03/14/21 Range/Units 18:11 18:11 18:31 WBC 10.3 (3.8-10.6) k/uL RBC 4.61 (3.80-5.40) m/uL Hgb 13.3 (11.4-16.0) gm/dL Hct 39.8 (34.0-46.0) % MCV 86.3 (80.0-100.0) fL MCH 28.8 (25.0-35.0) pg MCHC 33.3 (31.0-37.0) g/dL RDW 13.8 (11.5-15.5) % Plt Count 238 (150-450) k/uL MPV 8.5 Neutrophils % 61 % Lymphocytes % 29 % Monocytes % 6 % Eosinophils % 2 % Basophils % 0 % Neutrophils # 6.3 (1.3-7.7) k/uL Lymphocytes # 3.0 (1.0-4.8) k/uL Monocytes # 0.6 (0-1.0) k/uL Eosinophils # 0.2 (0-0.7) k/uL Basophils # 0.0 (0-0.2) k/uL Sodium 136 L (137-145) mmol/L Potassium 4.1 (3.5-5.1) mmol/L Chloride 105 (98-107) mmol/L Carbon Dioxide 22 (22-30) mmol/L Anion Gap 9 mmol/L BUN 15 (7-17) mg/dL Creatinine 0.49 L (0.52-1.04) mg/dL Est GFR (CKD-EPI)AfAm >90 (>60 ml/min/1.73 sqM) Est GFR (CKD-EPI)NonAf >90 (>60 ml/min/1.73 sqM) Glucose 103 H (74-99) mg/dL Calcium 9.0 (8.4-10.2) mg/dL Urine Color Yellow Urine Appearance Clear (Clear) Urine pH 5.5 (5.0-8.0) Ur Specific [place] 1.029 (1.001-1.035) Urine Protein 1+ H (Negative) Urine Glucose (UA) Negative (Negative) Urine Ketones 2+ H (Negative) Urine Blood Negative (Negative) Urine Nitrite Negative (Negative) Urine Bilirubin Negative (Negative) Urine Urobilinogen <2.0 (<2.0) mg/dL Ur Leukocyte Esterase Negative (Negative) Urine RBC <1 (0-5) /hpf Urine WBC 1 (0-5) /hpf Ur Squamous Epith Cells 2 (0-4) /hpf Hyaline Casts 4 H (0-2) /lpf Urine Mucus Moderate H (None) /hpf Urine HCG, Qual (Not Detectd) Urine Opiates Screen Not Detected (NotDetected) Ur Oxycodone Screen Not Detected (NotDetected) Urine Methadone Screen Not Detected (NotDetected) Ur Propoxyphene Screen Not Detected (NotDetected) Ur Barbiturates Screen Not Detected (NotDetected) U Tricyclic Antidepress Not Detected (NotDetected) Ur Phencyclidine Scrn Not Detected (NotDetected) Ur Amphetamines Screen Not Detected (NotDetected) U Methamphetamines Scrn Not Detected (NotDetected) U Benzodiazepines Scrn Not Detected (NotDetected) Urine Cocaine Screen Not Detected (NotDetected) U Marijuana (THC) Screen Detected H (NotDetected) 03/14/21 Range/Units 18:31 WBC (3.8-10.6) k/uL RBC (3.80-5.40) m/uL Hgb (11.4-16.0) gm/dL Hct (34.0-46.0) % MCV (80.0-100.0) fL MCH (25.0-35.0) pg MCHC (31.0-37.0) g/dL RDW (11.5-15.5) % Plt Count (150-450) k/uL MPV Neutrophils % % Lymphocytes % % Monocytes % % Eosinophils % % Basophils % % Neutrophils # (1.3-7.7) k/uL Lymphocytes # (1.0-4.8) k/uL Monocytes # (0-1.0) k/uL Eosinophils # (0-0.7) k/uL Basophils # (0-0.2) k/uL Sodium (137-145) mmol/L Potassium (3.5-5.1) mmol/L Chloride (98-107) mmol/L Carbon Dioxide (22-30) mmol/L Anion Gap mmol/L BUN (7-17) mg/dL Creatinine (0.52-1.04) mg/dL Est GFR (CKD-EPI)AfAm (>60 ml/min/1.73 sqM) Est GFR (CKD-EPI)NonAf (>60 ml/min/1.73 sqM) Glucose (74-99) mg/dL Calcium (8.4-10.2) mg/dL Urine Color Urine Appearance (Clear) Urine pH (5.0-8.0) Ur Specific [place] (1.001-1.035) Urine Protein (Negative) Urine Glucose (UA) (Negative) Urine Ketones (Negative) Urine Blood (Negative) Urine Nitrite (Negative) Urine Bilirubin (Negative) Urine Urobilinogen (<2.0) mg/dL Ur Leukocyte Esterase (Negative) Urine RBC (0-5) /hpf Urine WBC (0-5) /hpf Ur Squamous Epith Cells (0-4) /hpf Hyaline Casts (0-2) /lpf Urine Mucus (None) /hpf Urine HCG, Qual Not Detected (Not Detectd) Urine Opiates Screen (NotDetected) Ur Oxycodone Screen (NotDetected) Urine Methadone Screen (NotDetected) Ur Propoxyphene Screen (NotDetected) Ur Barbiturates Screen (NotDetected) U Tricyclic Antidepress (NotDetected) Ur Phencyclidine Scrn (NotDetected) Ur Amphetamines Screen (NotDetected) U Methamphetamines Scrn (NotDetected) U Benzodiazepines Scrn (NotDetected) Urine Cocaine Screen (NotDetected) U Marijuana (THC) Screen (NotDetected) Disposition Clinical Impression: Bipolar disorder Disposition: HOME SELF-CARE Condition: Stable Instructions (If sedation given, give patient instructions): Bipolar Disorder (ED) Additional Instructions: Please return to the Emergency Department if symptoms worsen or any other concerns. Follow-up with primary care 1-2 days. Is patient prescribed a controlled substance at d/c from ED?: No Referrals: Sherin Hilario MD [Primary Care Provider] - 1-2 days Time of Disposition: 00:07
[2021-03-15 00:27] VITALS: BP 119/68; PULSE 63; RESP 22; TEMP 98.3
== END 2021-03-15 00:26 | disposition home or self-care (01) ==
LOC: EC 17:19
DX: F31.9 Bipolar disorder, unspecified (principal); I25.10 Atherosclerotic heart disease of native coronary artery without angina pectoris; F41.9 Anxiety disorder, unspecified; Z86.73 Personal history of transient ischemic attack (TIA), and cerebral infarction without residual deficits
CPT/HCPCS: 36415; 80048; 80306; 81001; 81025; 82075; 85025; 96361; 96374; 96375; 99284

== ENCOUNTER 2021-05-15 11:08 | Emergency (ER) | payer MEDICARE, OTHER ==
[2021-05-15 11:31] VITALS: BP 113/73; PULSE 68; RESP 16; TEMP 99
--- NOTE | 2021-05-15 11:55 | ED ---
URI HPI - General Chief Complaint: Upper Respiratory Infection Stated Complaint: Covid exposure, symptoms Time Seen by Provider: 05/15/21 11:34 Source: patient, RN notes reviewed Mode of arrival: ambulatory Limitations: no limitations - History of Present Illness Initial Comments: This a 36-year-old female presents emergency Department chief complaint of cough congestion 4 days. Patient states she is exposed to COVID-19. Patient has minimal shortness breath no chest pain she does complain of slight nausea, body aches. Patient states that she has no vomiting diarrhea constipation no rashes no other complaints. - Related Data Home Medications Medication Instructions Recorded Confirmed Loratadine 10 mg PO DAILY 03/14/21 03/14/21 Polyethylene Glycol 3350 [Clearlax] 17 gm PO DAILY 03/14/21 03/14/21 Allergies Allergy/AdvReac Type Severity Reaction Status Date / Time succinylcholine Allergy Severe Unknown Verified 05/15/21 11:31 slobid Allergy Unknown Uncoded 05/15/21 11:31 Childhood Review of Systems ROS Statement: Those systems with pertinent positive or pertinent negative responses have been documented in the HPI. ROS Other: All systems not noted in ROS Statement are negative. Past Medical History Past Medical History: Coronary Artery Disease (CAD), CVA/TIA Additional Past Medical History / Comment(s): 2008 after child History of Any Multi-Drug Resistant Organisms: None Reported Past Surgical History: Bariatric Surgery, Section, Cholecystectomy, Tubal Ligation Additional Past Surgical History / Comment(s): PFO CLOSURE X2, OPEN HEART INFANT, Past Psychological History: Bipolar, Depression Smoking Status: Never smoker Past Alcohol Use History: None Reported Past Drug Use History: None Reported General Exam Limitations: no limitations General appearance: alert, in no apparent distress Head exam: Present: atraumatic, normocephalic, normal inspection Eye exam: Present: normal appearance, PERRL, EOMI. Absent: scleral icterus, conjunctival injection, periorbital swelling ENT exam: Present: normal exam, normal oropharynx, mucous membranes moist Neck exam: Present: normal inspection, full ROM. Absent: tenderness, meningismus, lymphadenopathy Respiratory exam: Present: normal lung sounds bilaterally. Absent: respiratory distress, wheezes, rales, rhonchi, stridor Cardiovascular Exam: Present: regular rate, normal rhythm, normal heart sounds. Absent: systolic murmur, diastolic murmur, rubs, gallop, clicks Course Vital Signs 05/15/21 11:27 Temperature 99.0 F Pulse Rate 68 Respiratory 16 Rate Blood Pressure 113/73 O2 Sat by Pulse 98 Oximetry Medical Decision Making - Medical Decision Making X-ray, COVID-19 tenderness and is negative. Patient has a viral URI. Patient's vitals are stable be discharged in stable condition. - Lab Data Lab Results 05/15/21 Range/Units 11:33 Coronavirus (PCR) Not Detected (Not Detectd) Disposition Clinical Impression: Acute upper respiratory infection Disposition: HOME SELF-CARE Condition: Stable Instructions (If sedation given, give patient instructions): Upper Respiratory Infection (ED) Additional Instructions: Please return to the Emergency Department if symptoms worsen or any other concerns. Is patient prescribed a controlled substance at d/c from ED?: No Referrals: Sherin Hilario MD [Primary Care Provider] - 1-2 days Time of Disposition: 13:06
--- NOTE | 2021-05-15 13:02 | XR ---
EXAMINATION TYPE: XR chest 2V DATE OF EXAM: 05/15/2021 COMPARISON: Chest x-ray October 24, 2019 HISTORY: Cough and shortness of breath for 4 days. TECHNIQUE: Frontal and lateral views of the chest are obtained. FINDINGS: There is elevation and eventration anterior aspect right hemidiaphragm redemonstrated. The re is no suspicious new focal air space opacity, pleural effusion, or pneumothorax seen. The cardiac silhouette size is stable and within normal limits. Overlying sternal wires along with PFO or atri al septal closure device are redemonstrated. The osseous structures are intact. IMPRESSION: No acute cardiopulmonary process. No significant change from prior.
== END 2021-05-15 13:20 | disposition home or self-care (01) ==
LOC: EC 11:08
DX: J06.9 Acute upper respiratory infection, unspecified (principal); I25.10 Atherosclerotic heart disease of native coronary artery without angina pectoris; F31.9 Bipolar disorder, unspecified; Z20.822 Contact with and (suspected) exposure to COVID-19; Z86.73 Personal history of transient ischemic attack (TIA), and cerebral infarction without residual deficits; Z98.84 Bariatric surgery status; Z90.49 Acquired absence of other specified parts of digestive tract; Z98.51 Tubal ligation status
CPT/HCPCS: 71046; 87635; 99285

== ENCOUNTER → 2021-06-06 | Outpatient (CLI) | payer MEDICARE, OTHER ==
--- NOTE | 2021-06-06 15:40 | US ---
EXAMINATION TYPE: US abdomen complete DATE OF EXAM: 06/06/2021 COMPARISON: None CLINICAL HISTORY: 36-year-old female R30.0 DYSURIA. Pt states right side ABD pain, microscopic hematu bree, GB removed TECHNIQUE: Multiple sonographic images of the abdomen are obtained. FINDINGS: EXAM MEASUREMENTS: Liver Length: 15.8 cm CBD: 0.7 cm Spleen: 12.2 cm Right Kidney: 11.4 x 5.6 x 6.2 cm Left Kidney: 11.3 x 5.6 x 5.2 cm Pancreas: wnl, tail obscured by overlying bowel gas Liver: wnl Gallbladder: Surgically absent Evidence for sonographic Santo's sign: No CBD: Mildly dilated. Spleen: wnl Right Kidney: wnl Left Kidney: wnl Upper IVC: wnl Abd Aorta: wnl General Partner notes:No abnormality visualized to account for pt's symptoms- results called to Dr. Alban deal at time of exam IMPRESSION: Bile duct mildly dilated at 7 mm, likely acceptable given postcholecystectomy status. Correlate with alkaline phosphatase and bilirubin levels. No hydronephrosis.
== END | disposition home or self-care (01) ==
LOC: RADUSWWP 14:43
PROVIDERS: ATTEND Family Medicine
DX: K83.8 Other specified diseases of biliary tract (principal)
CPT/HCPCS: 76700

== ENCOUNTER 2021-11-09 22:51 | Inpatient (IN) | payer MEDICARE, MEDICAID ==
--- NOTE | 2021-11-09 23:15 | ED ---
Psych HPI - General Chief Complaint: Psychiatric Symptoms Stated Complaint: Mental Health Time Seen by Provider: 11/09/21 23:00 Source: patient Mode of arrival: ambulatory - History of Present Illness Initial Comments: This patient is a 36-year-old woman with history of previous mood disorder who presents to be evaluated for worsening of her mood and having some suicidal thoughts. The patient states this is been getting worse over the past few days or so. She is not currently receiving any treatment. MD Complaint: suicidal ideation, feels depressed -: days(s) Associated Psychiatric Symptoms: depression, suicidal ideation History of same: Yes Quality: getting worse Improves With: none Worsens With: none - Related Data Home Medications Medication Instructions Recorded Confirmed Loratadine 10 mg PO DAILY 03/14/21 03/14/21 Polyethylene Glycol 3350 [Clearlax] 17 gm PO DAILY 03/14/21 03/14/21 Allergies Allergy/AdvReac Type Severity Reaction Status Date / Time succinylcholine Allergy Severe Unknown Verified 11/09/21 22:55 slobid Allergy Unknown Uncoded 11/09/21 22:55 Childhood Review of Systems ROS Statement: Those systems with pertinent positive or pertinent negative responses have been documented in the HPI. ROS Other: All systems not noted in ROS Statement are negative. Constitutional: Denies: fever, chills Respiratory: Denies: cough, dyspnea Cardiovascular: Denies: chest pain, palpitations, edema Gastrointestinal: Denies: abdominal pain, vomiting, diarrhea Genitourinary: Denies: dysuria, hematuria Musculoskeletal: Denies: back pain Skin: Denies: rash Neurological: Denies: headache, weakness Psychiatric: Reports: depression, suicidal thoughts. Denies: auditory hallucinations, visual hallucinations, homicidal thoughts Past Medical History Past Medical History: Coronary Artery Disease (CAD), CVA/TIA Additional Past Medical History / Comment(s): 2008 after child History of Any Multi-Drug Resistant Organisms: None Reported Past Surgical History: Bariatric Surgery, Section, Cholecystectomy, Tubal Ligation Additional Past Surgical History / Comment(s): PFO CLOSURE X2, OPEN HEART INFANT, Past Psychological History: Bipolar, Depression Smoking Status: Never smoker Past Alcohol Use History: None Reported Past Drug Use History: None Reported General Exam Limitations: no limitations General appearance: alert, in no apparent distress Head exam: Present: atraumatic, normocephalic Eye exam: Present: normal appearance. Absent: scleral icterus, conjunctival injection ENT exam: Present: normal oropharynx Neck exam: Present: normal inspection Respiratory exam: Present: normal lung sounds bilaterally. Absent: respiratory distress, wheezes, rales, rhonchi, stridor Cardiovascular Exam: Present: regular rate, normal rhythm, normal heart sounds. Absent: systolic murmur, diastolic murmur, rubs, gallop GI/Abdominal exam: Present: soft. Absent: distended, tenderness, guarding, rebound, rigid, mass Extremities exam: Present: normal inspection, normal capillary refill. Absent: pedal edema, calf tenderness Back exam: Present: normal inspection Neurological exam: Present: alert Psychiatric exam: Present: depressed, suicidal ideation. Absent: agitated, anxious, flat affect, manic, homicidal ideation Skin exam: Present: warm, dry, intact, normal color. Absent: rash Course Vital Signs 11/09/21 22:52 Temperature 97 F L Pulse Rate 66 Respiratory 18 Rate Blood Pressure 122/72 O2 Sat by Pulse 100 Oximetry Disposition Clinical Impression: Mood disorder Disposition: ADMITTED IP TO THIS HOSP Condition: Fair Is patient prescribed a controlled substance at d/c from ED?: No Referrals: None,Stated [Primary Care Provider] - 1-2 days
[2021-11-10 04:00] LABS: Basophils # (A) 0.1 k/uL (0-0.2); Basophils % (A) 1 %; Eosinophils # (A) 0.6 k/uL (0-0.7); Eosinophils % (A) 7 %; Lymphocytes # (A) 4.2 k/uL (1.0-4.8); Lymphocytes % (A) 43 %; MCH 29.2 pg (25.0-35.0); MCHC 33.2 g/dL (31.0-37.0); MCV 87.7 fL (80.0-100.0); Monocytes # (A) 0.3 k/uL (0-1.0); Monocytes % (A) 3 %; Neutrophils # (A) 4.3 k/uL (1.3-7.7); Neutrophils % (A) 45 %; Platelet Count 208 k/uL (150-450); RBC 4.44 m/uL (3.80-5.40); RDW 13.6 % (11.5-15.5); WBC 9.6 k/uL (3.8-10.6)
[2021-11-10 04:13] LABS: ALT 15 U/L (4-34); AST 18 U/L (14-36); African American GFR (CKD) >90 (>60 ml/min/1.73 sqM); Albumin 3.2 g/dL (3.5-5.0); Alkaline Phosphatase 57 U/L (38-126); Anion Gap 3 mmol/L; Blood Urea Nitrogen 12 mg/dL (7-17); Calcium 8.7 mg/dL (8.4-10.2); Carbon Dioxide 27 mmol/L (22-30); Chloride 109 mmol/L (98-107); Glucose 102 mg/dL (74-99); Non-African American GFR(CKD) >90 (>60 ml/min/1.73 sqM); Potassium 3.9 mmol/L (3.5-5.1); Sodium 139 mmol/L (137-145); Total Bilirubin 0.3 mg/dL (0.2-1.3); Total Protein 5.7 g/dL (6.3-8.2)
[2021-11-10 04:39] VITALS: RESP 16
[2021-11-10] MEDS ORDERED: ACETAMINOPHEN TAB 325 MG TAB PO PRN (04:51)
[2021-11-10] MEDS ORDERED: MAGNESIUM HYDROXIDE 2,400 MG/10 ML CUP PO PRN (04:51)
[2021-11-10] MEDS ORDERED: HALOPERIDOL LACTATE 5 MG/ML 1 ML VIAL IM PRN (04:51)
[2021-11-10] MEDS ORDERED: MAG HYDROX/AL HYDROX/SIMETH 30 ML CUP PO PRN (04:51)
[2021-11-10] MEDS ORDERED: LORazepam 1 MG TAB PO PRN (04:51)
[2021-11-10] MEDS ORDERED: LORazepam 2 MG/ML INJ IM PRN (04:55)
[2021-11-10] MEDS ORDERED: haloperidoL 5 MG TAB PO PRN (05:08)
--- NOTE | 2021-11-10 17:56 | P.HP ---
Psychiatric H&P - . H&P Date: 11/10/21 History & Physical: IDENTIFYING DATA: 36 yo female admitted on voluntary basis due to suicidal ideations with plan. HPI: Patient is a 36 year old homeless female who presents with suicidal ideations, and states "I just don't want to live". She denies current plan, but per EPS ER notes she had reported two plans of "I had scissors in my hand and jump in the water." On my assessment, she appears disheveled with depressed affect and downward gaze. Her speech is soft and answers are brief. She appears evasive and avoidant when answering some questions, specifically when asked about her family and her relationship history. She reports depressed mood, increased sleep, "sleeps a lot", decreased interest and concentration, decreased appetite. She denies nightmares. She denies auditory or visual hallucinations. She does not appear to be attending to internal stimuli and assessment. She reports a history of bipolar disorder but history of silvestre is not elicited on evaluation. She reports she was living at a motel with a friend but reports she is currently homeless since she is not sure she can go back to the motel because she can't find her friend. She reports her last use of methamphetamine was approximately 4-5 days ago. She denies any other drug or alcohol use. PAST PSYCHIATRIC HISTORY: Prior diagnosis: "Bipolar and depression" Hospitalizations: [facility] in 2020, [facility] - over 10 years ago Outpatient: [facility], last appointment in 2019 Medications: "I don't remember", Wellbutrin helped a lot. Past Medical History: "Not really" Past Surgical History: "a couple of them" ALLERGIES: Allergies succinylcholine Allergy (Severe, Verified 11/10/21 04:41) Unknown delayed waking from surgery slobid Allergy (Uncoded 11/10/21 04:41) Unknown Childhood CHEMICAL DEPENDENCY HISTORY: "Not lately", EPS assessment states methampethamine use, and patient states "yes, but not lately." She reports last use of methamphetamine was 4-5 days ago. She denies using any other illicit substances of alcohol. FAMILY PSYCHIATRIC/SUBSTANCE USE HISTORY: "I don't remember", "I don't talk to any of my family" "I just don't remember who they are". SOCIAL HISTORY: Was living in a motel with "a friend" but doesn't know if she still is because she "can't find her friend". She states "I don't have a place to go". When asked if she has ever been she states "I don't remember". Do you have any children? - "I don't remember that either". She denies every being in alf. Did you graduate high school?- she shakes her head "I don't think so?" When asked about a history of physical, emotional or sexual abuse, she states "I don't remember". MENTAL STATUS EXAM: General Appearance: Patient appears disheveled and to be stated age. Orientation: She is awake, alert, and oriented to person, place, time, and situation. Behavior: Patient is seated without any agitated behavior. Poor eye contact, passively engaged in assessment. . Speech: Patient's speech is fluent and nonpressured, with low volume and tone. Mood/Affect: Patient reports mood is depressed, affect is congruent Suicidality/Homicidality: Patient endoreses suicidal ideations, with intent but without current plan. She denies homicidal ideations. Perceptions: Patient denies any visual hallucinations and denies any auditory hallucinations. Though content/process: There is no evidence of any delusional thought content and thought process is linear and goal-directed. Memory and concentration: Immediate and recent memory are intact, remote memory is impaired (claims she can't remember her family or if she was ever or had children). She can spell "WORLD" backwards Insight: fair Judgment: poor STRENGTHS/WEAKNESSES: Strength is she can make needs known and states she is a "fast thinker". Weakness is that she is "emotionless" INTELLECT: Average IMPRESSIONS: Major depressive disorder, recurrent severe, without psychotic features Rule out bipolar disorder Rule out trauma or stressor related disorder Methamphetamine use disorder Homeless PLAN: Patient is admitted under voluntary status to [facility] for stabilization of psychiatric symptoms and safety. Medications: Start Wellbutrin XL 150 mg daily in the morning for depression. Admission labs including CBC with differential, CMP, hemoglobin A1c, hepatic function panel, lipid panel, TSH and urinalysis. Ativan and Haldol PRN for agitation/aggression Patient was counselled on substance abuse and desired to cut back on use Patient was informed of the risks, benefits and side effects of the medication and patient verbally consented to taking the medications. Patient signed med consent form and was placed in chart. Internal Medicine consult to perform medical evaluation and physical. SW on board for discharge planning. Encourage patient to participate in groups to work on coping skills. Vital Signs Temp 97.3 F L 11/10/21 04:55 Pulse 55 L 11/10/21 04:55 Resp 16 11/10/21 04:55 BP 133/72 11/10/21 04:55 Pulse Ox 100 11/10/21 04:55 Intake & Output 11/09/21 11/10/21 11/10/21 18:59 06:59 18:59 Weight 92.675 kg Laboratory Last Values WBC 9.6 k/uL (3.8-10.6) 11/10/21 03:30 RBC 4.44 m/uL (3.80-5.40) 11/10/21 03:30 Hgb 13.0 gm/dL (11.4-16.0) 11/10/21 03:30 Hct 39.0 % (34.0-46.0) 11/10/21 03:30 MCV 87.7 fL (80.0-100.0) 11/10/21 03:30 MCH 29.2 pg (25.0-35.0) 11/10/21 03:30 MCHC 33.2 g/dL (31.0-37.0) 11/10/21 03:30 RDW 13.6 % (11.5-15.5) 11/10/21 03:30 Plt Count 208 k/uL (150-450) 11/10/21 03:30 MPV 8.0 11/10/21 03:30 Neutrophils % 45 % 11/10/21 03:30 Lymphocytes % 43 % 11/10/21 03:30 Monocytes % 3 % 11/10/21 03:30 Eosinophils % 7 % 11/10/21 03:30 Basophils % 1 % 11/10/21 03:30 Neutrophils # 4.3 k/uL (1.3-7.7) 11/10/21 03:30 Lymphocytes # 4.2 k/uL (1.0-4.8) 11/10/21 03:30 Monocytes # 0.3 k/uL (0-1.0) 11/10/21 03:30 Eosinophils # 0.6 k/uL (0-0.7) 11/10/21 03:30 Basophils # 0.1 k/uL (0-0.2) 11/10/21 03:30 Sodium 139 mmol/L (137-145) 11/10/21 03:30 Potassium 3.9 mmol/L (3.5-5.1) 11/10/21 03:30 Chloride 109 mmol/L (98-107) H 11/10/21 03:30 Carbon Dioxide 27 mmol/L (22-30) 11/10/21 03:30 Anion Gap 3 mmol/L 11/10/21 03:30 BUN 12 mg/dL (7-17) 11/10/21 03:30 Creatinine 0.63 mg/dL (0.52-1.04) 11/10/21 03:30 Est GFR (CKD-EPI)AfAm >90 (>60 ml/min/1.73 sqM) 11/10/21 03:30 Est GFR (CKD-EPI)NonAf >90 (>60 ml/min/1.73 sqM) 11/10/21 03:30 Glucose 102 mg/dL (74-99) H 11/10/21 03:30 Calcium 8.7 mg/dL (8.4-10.2) 11/10/21 03:30 Total Bilirubin 0.3 mg/dL (0.2-1.3) 11/10/21 03:30 AST 18 U/L (14-36) 11/10/21 03:30 ALT 15 U/L (4-34) 11/10/21 03:30 Alkaline Phosphatase 57 U/L (38-126) 11/10/21 03:30 Total Protein 5.7 g/dL (6.3-8.2) L 11/10/21 03:30 Albumin 3.2 g/dL (3.5-5.0) L 11/10/21 03:30 Coronavirus (PCR) Not Detected (Not Detectd) 11/10/21 03:30 11/10/21 17:17
[2021-11-10 21:37] LABS: Appearance,Urine Cloudy (Clear); Bacteria,Urine Many /hpf; Bilirubin,Urine Negative (Negative); Blood,Urine Negative (Negative); Color,Urine Yellow; Glucose,Urine (UA) Negative (Negative); Ketones,Urine Negative (Negative); Leukocyte Esterase,Urine Negative (Negative); Mucus,Urine Many /hpf; Nitrite,Urine Negative (Negative); Protein,Urine Trace (Negative); RBC,Urine 2 /hpf (0-5); Specific Gravity,Urine 1.012 (1.001-1.035); Squamous Epithelial Cell,Urine 6 /hpf (0-4); Urobilinogen,Urine <2.0 mg/dL (<2.0); WBC,Urine 15 /hpf (0-5)
[2021-11-11] MEDS ORDERED: buPROPion XL 150 MG TAB.ER.24H PO SCH (09:00)
[2021-11-11 09:24] LABS: Urine Alcohol Negative (Negative); Urine Barbiturate Negative (Negative); Urine Cocaine Negative (Negative); Urine Methadone Negative (Negative); Urine Opiates Negative (Negative); Urine Phencyclidine Negative (Negative)
--- NOTE | 2021-11-11 10:54 | P.MDCNMH ---
History of Present Illness H&P Date: 11/10/21 Patient is a 36-year-old female with known history of CVA/TIA, coronary artery disease, bipolar disorder marijuana, methamphetamine use was admitted to the hospital due to complaints of suicidal thoughts. Patient has been having worsening symptoms for the past few days. Currently patient is not taking any medications at home otherwise patient denied any complaints of chest pain or shortness of breath. No nausea vomiting or abdominal pain or diarrhea. No headache or dizziness lightheadedness. No fever no chills. No cough or sputum production. Denied any recent illnesses. Laboratory data showed WBC 9.6 hemoglobin 13.0 and platelets 208 Sodium 139 potassium 3.9 chloride 109 bicarb is 27 BUN 12 and creatinine 0.63 and A1c level is 6.3, TSH 4.26 and urinalysis showed cloudy, leukocyte esterase negative. Patient denied any dysuria or abdominal pain. UDS is negative [place] Virus 19 PCR not detected. Review of Systems Constitutional: Patient denies any fever or chills . No generalized weakness or weight loss. Abdomen: Patient denied nausea vomiting and diarrhea and abdominal pain. Cardiovascular: Patient denies any chest pain or short of breath no palpitations. Respiratory: patient denied any cough is from production. No shortness of breath Neurologic: Patient denied any numbness or tingling headache. Complete review of systems could not be obtained from the patient Past Medical History Past Medical History: Coronary Artery Disease (CAD), CVA/TIA Additional Past Medical History / Comment(s): 2007 after child History of Any Multi-Drug Resistant Organisms: None Reported Past Surgical History: Bariatric Surgery, Section, Cholecystectomy, Tubal Ligation Additional Past Surgical History / Comment(s): PFO CLOSURE X2, OPEN HEART , Past Psychological History: Bipolar, Depression Smoking Status: Never smoker Past Alcohol Use History: None Reported Past Drug Use History: Marijuana, Methamphetamine Medications and Allergies Home Medications Medication Instructions Recorded Confirmed Type Loratadine 10 mg PO DAILY 03/14/21 11/10/21 History Polyethylene Glycol 3350 [Clearlax] 17 gm PO DAILY 03/14/21 11/10/21 History Allergies Allergy/AdvReac Type Severity Reaction Status Date / Time succinylcholine Allergy Severe Unknown Verified 11/10/21 04:41 slobid Allergy Unknown Uncoded 11/10/21 04:41 Childhood Physical Exam Vitals: Vital Signs Temp Pulse Pulse Resp BP BP Pulse Ox 11/10/21 04:55 97.3 F L 55 L 16 133/72 100 11/10/21 04:38 53 L 16 122/81 98 11/09/21 22:52 97 F L 66 18 122/72 100 Intake and Output 11/10/21 11/10/21 11/10/21 06:59 14:59 22:59 Other: Weight 92.675 kg PHYSICAL EXAMINATION: Patient is lying in the bed comfortably, no acute distress, awake alert but sleepy and lethargic... HEENT: Normocephalic. Neck is supple. Pupils reactive. Nostrils clear. Oral cavity is moist. Neck reveals no JVD, carotid bruits, or thyromegaly. CHEST EXAMINATION: Trachea is central. Symmetrical expansion. Lung fuchs clear to auscultation and percussion. CARDIAC: Normal S1, S2 with no gallops. No murmurs ABDOMEN: Soft. Bowel sounds normal. No organomegaly. No abdominal bruits. Extremities: reveal no edema. No clubbing or cyanosis Neurologically awake, alert,. No gross focal deficits noted Skin: No rash or skin lesions. Psychiatric: Noncooperative Musculoskeletal: No joint swelling or deformity. Normal range of motion. Cranial Nerve Examination - Cranial Nerves Cranial Nerve I- Olfactory: Intact Cranial Nerve II- Optic: Intact Cranial Nerve III- Oculomotor: Intact Cranial Nerve IV- Trochlear: Intact Cranial Nerve V- Trigeminal: Intact Cranial Nerve - Abducens: Intact Cranial Nerve VII- Facial: Intact Cranial Nerve VIII- Auditory: Intact Cranial Nerve IX- Glossopharyngeal: Intact Cranial Nerve X- Vagus: Intact Cranial Nerve XI- Accessory: Intact Cranial Nerve XII- Hypoglossal: Intact Results CBC & Chem 7: 11/10/21 03:30 11/10/21 03:30 Labs: Abnormal Lab Results - Last 24 Hours (Table) 11/10/21 Range/Units 03:30 Chloride 109 H (98-107) mmol/L Glucose 102 H (74-99) mg/dL Total Protein 5.7 L (6.3-8.2) g/dL Albumin 3.2 L (3.5-5.0) g/dL
[2021-11-11 11:54] LABS: HDL Cholesterol 57.1 mg/dL (40.00-60.00); Triglycerides 39.3 mg/dL (0.00-149.00)
[2021-11-11 12:04] LABS: Chol/HDL Ratio 2.21 Ratio; LDL Cholesterol,Direct Reflex 62.8 mg/dL (0.00-129.00)
--- NOTE | 2021-11-11 19:55 | P.PN ---
Progress Note - Text Progress Note Date: 11/11/21 Interval History: Patient was seen in the conference room. She reports she is having suicidal th oughts today "a little bit", but denies plan or intent. She reports her mood today is "angry, annoyed". When asked if she has reached out to any family or friends, she states "I don't remember them". At this time patient denies homical ideations, intent or plan. Patient denies any auditory, visual hallucinations. Patient denies any side effects from the medications and has been compliant with meds. Her answers are vague and appears evasive. She requests for her Wellbutrin to be increased. Mental Status Exam: General Appearance: Patient's hygiene is improved, and appears to be stated age. Orientation: She is awake, alert, and oriented to person, place, time, and situation. Behavior: Patient is seated without any agitated behavior. Poor eye contact, passively engaged in assessment. Speech: Patient's speech is fluent and nonpressured, with low volume and tone. Mood/Affect: Patient reports mood is "angry, annoyed", affect is mood- incongruent, appears euthymic. Suicidality/Homicidality: Patient endorses suicidal ideations "a little bit", without plan or intent. She denies homicidal ideations. Perceptions: Patient denies any visual hallucinations and denies any auditory hallucinations. Though content/process: There is no evidence of any delusional thought content and thought process is linear and goal-directed. Memory and concentration: Immediate and recent memory are intact, remote memory is impaired, but appears behavioral since she appears evasive. Insight: fair Judgment: poor IMPRESSIONS: Major depressive disorder, recurrent severe, without psychotic features Rule out bipolar disorder Rule out trauma or stressor related disorder Methamphetamine use disorder Homeless Plan: -Patient continues to meet criteria for inpatient psychiatric admission for symptom stabilization and safety. -Medications: Increase Wellbutrin XL to 300 mg daily in the morning for depression. -When necessary Ativan and Haldol for agitation/aggression. -NRT - not needed since did not report tobacco use -SW on board for discharge planning. Encouraged the patient to participate in milieu.
[2021-11-12] MEDS ORDERED: buPROPion XL 300 MG TAB.ER.24H PO ONE (08:00)
--- NOTE | 2021-11-12 11:46 | P.PN ---
Progress Note - Text Progress Note Date: 11/12/21 Interval History: Patient was seen resting in bed and was directable and agreeable to speak with typewriters functional tester in the office. Patient reports that she is unable to recall events leading up to this hospitalization well. She states that she does remember walking towards Hospital. She does admit that she has been feeling increasingly depressed and suicidal. She does report that she did have plans of cutting herself or drowning herself. The patient reports that she has been having difficulty with energy and focus. She reports that despite excessive amounts of sleep, she continues to feel very low energy. She reports a very low mood. She states that her appetite has decreased. She reports no issues regarding her hygiene and grooming. She is currently denying any auditory or visual hallucinations. She reports no paranoia or other delusions. She continues endorse suicidal ideation however and does not endorse any homicidal thoughts. Mental Status Exam: General Appearance: Patient appears to be stated age is alert, directable, and cooperative. Behavior: Patient is calmly seated without any agitated behavior. Eye contact is fair. Psychomotor activity appears slow. Speech: Patient's speech is fluent and nonpressured. Monotone, low in volume, slow and viscous. Mood/Affect: Mood is depressed, affect is congruent and sad and tearful. Suicidality/Homicidality: Patient endorses suicidal ideation or homicidal ideation. Perceptions: Patient denies any visual hallucinations and denies any auditory hallucinations Though content/process: There is no evidence of any delusional thought content and thought process is linear and goal-directed. Memory and concentration: Memory and concentration appeared to be poor at this time. Judgment and insight: Improving mildly Vital Signs Temp 97.9 F 11/11/21 06:54 Pulse 54 L 11/11/21 06:54 Resp 16 11/11/21 06:54 BP 99/58 11/11/21 06:54 Pulse Ox 98 11/11/21 06:54 Intake & Output 11/11/21 11/12/21 11/12/21 18:59 06:59 18:59 Weight 92.6 kg Laboratory Results - Last 24 Hours 11/10/21 03:30 Triglycerides 39.30 Cholesterol 126.00 LDL Cholesterol Direct 62.80 LDL Cholesterol, Calc VLDL Cholesterol, Calc HDL Cholesterol 57.10 Cholesterol/HDL Ratio 2.21 TSH 4.260 Assessment Major depressive disorder, recurrent severe, without psychotic features Rule out bipolar disorder Rule out trauma or stressor related disorder Methamphetamine use disorder Plan: -Patient continues to meet criteria for inpatient psychiatric admission for symptom stabilization and safety. Patient has signed adult voluntary form and medication consent and was placed in patient's chart. -Medications: Continue Wellbutrin XL 300 mg by mouth daily for depression Start Abilify 5 mg by mouth daily for mood augmentation/stabilization -When necessary Ativan and Haldol for agitation/aggression. -SW on board for discharge planning. Encouraged the patient to participate in milieu.
[2021-11-12] MEDS: buPROPion XL 300 MG TAB.ER.24H PO SCH (16:26)
[2021-11-12] MEDS ORDERED: ARIPiprazole 5 MG TAB PO SCH (21:00)
[2021-11-13 06:39] VITALS: BP 109/52; PULSE 57; TEMP 97.4
[2021-11-13] MEDS: buPROPion XL 300 MG TAB.ER.24H PO SCH (08:38)
[2021-11-13] MEDS ORDERED: ARIPiprazole 15 MG TAB PO SCH (09:00)
[2021-11-13] MEDS ORDERED: IBUPROFEN 600 MG TAB PO PRN (10:44)
[2021-11-13] MEDS ORDERED: SUMAtriptan succinate 25 MG TAB PO PRN (10:53)
--- NOTE | 2021-11-13 11:33 | P.PN ---
Progress Note - Text Progress Note Date: 11/13/21 Interval History: Patient was seen resting in bed and was directable and agreeable to speak with promotion writer in the office. Patient continues to report that she feels tired. She states that she is feeling overall better compared to yesterday. She is currently denying any suicidal or homicidal ideation, intention, and/or plan today. She does continue to report that she has difficulty with memory and is unable to determine the events leading up to this hospitalization. She does report that she was staying in a motel with a friend named "Murray" who works in the cafeteria in this hospital. In regards to stressors, the patient does state that an individual moved into the motel whom she was familiar with but did not want to associate with. She identifies his individualized "possibly being my mother." The patient reports that she has difficulty remembering who she grew up with and who has been around her. The patient does admit that she used methamphetamines one week prior to this admission. She denies any other drug use. She has been adherent with her medications and is not reporting recent and side effects of this time. Mental Status Exam: General Appearance: Patient appears to be stated age is alert, directable, and cooperative. Behavior: Patient is calmly seated without any agitated behavior. Eye contact is fair. Psychomotor activity appears slow but improved from yesterday. Speech: Patient's speech is fluent and nonpressured. Monotone, low in volume, slow and viscous. Mood/Affect: Mood is "better." Affect is withdrawn and blunted. Suicidality/Homicidality: Patient denies any suicidal or homicidal ideation. Perceptions: Patient denies any visual hallucinations and denies any auditory hallucinations Though content/process: There is no evidence of any delusional thought content and thought process is linear and goal-directed. Fixated on headache. Memory and concentration: Memory is reportedly poor however she is Alert and Oriented x3. Concentration is intact. (Patient was perfect with serial 7s). Judgment and insight: Improving mildly Vital Signs Temp 97.4 F L 11/12/21 06:00 Pulse 57 L 11/12/21 06:00 Resp 16 11/12/21 06:00 BP 109/52 11/12/21 06:00 Pulse Ox 98 11/12/21 06:00 Assessment Major depressive disorder, recurrent severe, without psychotic features Rule out bipolar disorder Rule out trauma or stressor related disorder Methamphetamine use disorder Plan: -Patient continues to meet criteria for inpatient psychiatric admission for symptom stabilization and safety. Patient has signed adult voluntary form and medication consent and was placed in patient's chart. -Medications: Continue Wellbutrin XL 300 mg by mouth daily for depression Increase Abilify to 10 mg by mouth daily for mood augmentation/stabilization. -When necessary Ativan and Haldol for agitation/aggression. -SW on board for discharge planning. Encouraged the patient to participate in milieu.
[2021-11-14] MEDS: buPROPion XL 300 MG TAB.ER.24H PO SCH (08:39)
[2021-11-14] MEDS ORDERED: ARIPiprazole 10 MG TAB PO SCH (09:00)
[2021-11-14] MEDS ORDERED: SUMAtriptan succinate 25 MG TAB PO SCH (09:00)
--- NOTE | 2021-11-14 10:00 | P.DS ---
Providers Date of admission: 11/10/21 04:33 Expected date of discharge: 11/14/21 Attending physician: Curtis Mancini MD Consults: 11/10/21 04:51 Consult Physician Routine Consulting Provider: Lilibeth Berrios Consult Reason/Comments: For H & P for Medical Follow Up Do you want consulting provider notified?: Yes Primary care physician: Stated None - Discharge Diagnosis(es) (1) Major depressive disorder, recurrent episode, severe Current Visit: Yes Status: Acute Priority: High (2) Methamphetamine abuse Current Visit: Yes Status: Chronic Priority: Medium Hospital Course: Admission HPI: Initial psychiatric evaluation was completed by Dr. Dela Cruz on 11/10/2021 who wrote: "IDENTIFYING DATA: 36 yo female admitted on voluntary basis due to suicidal ideations with plan. HPI: Patient is a 36 year old homeless female who presents with suicidal ideations, and states "I just don't want to live". She denies current plan, but per EPS ER notes she had reported two plans of "I had scissors in my hand and jump in the water." On my assessment, she appears disheveled with depressed affect and downward gaze. Her speech is soft and answers are brief. She appears evasive and avoidant when answering some questions, specifically when asked about her family and her relationship history. She reports depressed mood, increased sleep, "sleeps a lot", decreased interest and concentration, decreased appetite. She denies nightmares. She denies auditory or visual hallucinations. She does not appear to be attending to internal stimuli and assessment. She reports a history of bipolar disorder but history of silvestre is not elicited on evaluation. She reports she was living at a motel with a friend but reports she is currently homeless since she is not sure she can go back to the motel because she can't find her friend. She reports her last use of methamphetamine was approximately 4-5 days ago. She denies any other drug or alcohol use. " Hospital course: Upon admission to the unit patient was initially noted to be very disheveled, with poor eye contact, endorsing suicidal thoughts, with impaired remote memory. Patient was however directable and agreeable to commence treatment. Patient got along well with other patients on the unit and followed unit protocol. Patient was compliant with the medications and denied any side effects throughout hospital course. Patient was started on Wellbutrin for depression. The patient's Wellbutrin was titrated to 300 mg in order to address her symptoms of depression and low energy. Abilify was added to the patient's regimen to augment her treatment with Wellbutrin and to address any underlying disorganization/psychosis. Over the course the hospitalization, the patient displayed gradual but significant improvement in regards her target symptoms of suicidality, depression, low energy, and memory difficulty. On the day of discharge, the patient is not reporting any suicidal or homicidal ideation, intention, and/or plan. She is not reporting any auditory or visual hallucinations. She reports no paranoia or other delusions. The patient has been adherent with her medications and is denying any significant side effects at this time. The patient does have significant history of methamphetamine abuse however states that it is not a problem for her. Despite this, the patient does use methamphetamines at least once per month. She was advised to stop using methamphetamines and other drugs. The patient remains pre- contemplative at this time. She was offered inpatient substance abuse rehabilitation to which she declined. The patient was also counseled on importance of medication adherence appropriate outpatient follow-up. The risks, benefits, and treatment alternatives of the medications were discussed in detail with the patient. She was also informed that methamphetamines with Wellbutrin can greatly decrease her seizure threshold. Prior to discharge, family meeting will be arranged by social services technician to answer questions and ensure safety. Mental status exam: General Appearance: Patient appears to be stated age is alert, pleasant, and cooperative. Patient is in no acute distress and has improved hygiene and grooming Behavior: Patient is calmly seated without any agitated behavior. Speech: Patient's speech is fluent and nonpressured. Monotone. Mood/Affect: Patient reports their mood is "much better", affect is congruent and euthymic. Slightly constricted. Suicidality/Homicidality: Patient denies any suicidal or homicidal ideation, intention, and/or plan. Perceptions: Patient denies any auditory or visual hallucinations. Though content/process: There is no evidence of any delusional thought content a nd thought process is linear and goal-directed. The patient is future oriented. Memory and concentration: AOX3, grossly intact for the purposes of this session. Can spell "WORLD" backwards correctly. Judgment and insight: Improved with guarded prognosis Vital Signs Temp 97.4 F L 11/12/21 06:00 Pulse 57 L 04/25/22 06:00 Resp 16 11/12/21 06:00 BP 109/52 11/12/21 06:00 Pulse Ox 98 11/12/21 06:00 Impression: Major depressive disorder, recurrent, severe, without psychotic features Methamphetamine use disorder Plan: -Continue with discharge today as patient has improved and stabilized psychiatrically and is not currently an imminent threat to self and/or others. Patient will remain at chronically elevated risk for harm to self and/or others due to her lack of stable housing and her drug abuse. -Continue medications: Trazodone 50 mg daily at bedtime when necessary for insomnia Wellbutrin XL 300 mg by mouth daily for depression Abilify 10 mg by mouth daily for mood stabilization/augmentation -Patient was counseled on the need for medication compliance and appropriate follow-up at mental health and also primary care for medical issues. Patient verbalized understanding and agreed. -Social work to arrange for and conduct family meeting to ensure safety upon discharge and answer any questions/concerns. Social work also to arrange for patients follow up appointments for psychiatric care along with follow up with primary care provider. -Patient counseled on abstaining from recreational drugs and marijuana and alcohol. Was informed/educated on the adverse effects on their physical and mental health. Patient verbally agreed and understood. Patient was offered substance abuse treatment however declined at this time. -Patient was instructed to return to the hospital or seek immediate medical care if their psychiatric or medical symptoms do worsen or reoccur. -Psychoeducation and supportive therapy provided to patient. Risks and benefits of pharmacological treatment versus the risks and benefits of nontreatment weight and discussed. Informed consent discussion held. Common side effects of psychotropics discussed such as, but not limited to headache, GI disturbance, sexual dysfunction, movement disorders, sedation, and orthostatic hypotension. Life threatening and blackbox warnings of prescribed medications also discussed. Potential risks of operating a vehicle or heavy machinery discussed with patient at length. Advised on importance of compliance and a reliable and responsible manner. Patient advised to review FDA consumer labeling of all medications prior to taking. Patient verbalized understanding of potential risks, and agrees with current treatment plan. Patient advised to medically contact physician/emergency personnel if any acute changes in condition occur. Laboratory Results WBC 9.6 k/uL (3.8-10.6) 11/10/21 03:30 RBC 4.44 m/uL (3.80-5.40) 11/10/21 03:30 Hgb 13.0 gm/dL (11.4-16.0) 11/10/21 03:30 Hct 39.0 % (34.0-46.0) 11/10/21 03:30 MCV 87.7 fL (80.0-100.0) 11/10/21 03:30 MCH 29.2 pg (25.0-35.0) 11/10/21 03:30 MCHC 33.2 g/dL (31.0-37.0) 11/10/21 03:30 RDW 13.6 % (11.5-15.5) 11/10/21 03:30 Plt Count 208 k/uL (150-450) 11/10/21 03:30 MPV 8.0 11/10/21 03:30 Neutrophils % 45 % 11/10/21 03:30 Lymphocytes % 43 % 11/10/21 03:30 Monocytes % 3 % 11/10/21 03:30 Eosinophils % 7 % 11/10/21 03:30 Basophils % 1 % 11/10/21 03:30 Neutrophils # 4.3 k/uL (1.3-7.7) 11/10/21 03:30 Lymphocytes # 4.2 k/uL (1.0-4.8) 11/10/21 03:30 Monocytes # 0.3 k/uL (0-1.0) 11/10/21 03:30 Eosinophils # 0.6 k/uL (0-0.7) 11/10/21 03:30 Basophils # 0.1 k/uL (0-0.2) 11/10/21 03:30 Sodium 139 mmol/L (137-145) 11/10/21 03:30 Potassium 3.9 mmol/L (3.5-5.1) 11/10/21 03:30 Chloride 109 mmol/L (98-107) H 11/10/21 03:30 Carbon Dioxide 27 mmol/L (22-30) 11/10/21 03:30 Anion Gap 3 mmol/L 11/10/21 03:30 BUN 12 mg/dL (7-17) 11/10/21 03:30 Creatinine 0.63 mg/dL (0.52-1.04) 11/10/21 03:30 Est GFR (CKD-EPI)AfAm >90 (>60 ml/min/1.73 sqM) 11/10/21 03:30 Est GFR (CKD-EPI)NonAf >90 (>60 ml/min/1.73 sqM) 11/10/21 03:30 Glucose 102 mg/dL (74-99) H 11/10/21 03:[address] Glu mg/dL 134 11/10/21 03:30 Hemoglobin A1c 6.3 % (0.0-6.0) H 11/10/21 03:30 Calcium 8.7 mg/dL (8.4-10.2) 11/10/21 03:30 Total Bilirubin 0.3 mg/dL (0.2-1.3) 11/10/21 03:30 AST 18 U/L (14-36) 11/10/21 03:30 ALT 15 U/L (4-34) 11/10/21 03:30 Alkaline Phosphatase 57 U/L (38-126) 11/10/21 03:30 Total Protein 5.7 g/dL (6.3-8.2) L 11/10/21 03:30 Albumin 3.2 g/dL (3.5-5.0) L 11/10/21 03:30 Triglycerides 39.30 mg/dL (0.00-149.00) 11/10/21 03:30 Cholesterol 126.00 mg/dL (0.00-200.00) 11/10/21 03:30 LDL Cholesterol Direct 62.80 mg/dL (0.00-129.00) 11/10/21 03:30 LDL Cholesterol, Calc mg/dL (0.0-131.0) 11/10/21 03:30 VLDL Cholesterol, Calc mg/dL (5.00-40.00) 11/10/21 03:30 HDL Cholesterol 57.10 mg/dL (40.00-60.00) 11/10/21 03:30 Cholesterol/HDL Ratio 2.21 Ratio 11/10/21 03:30 TSH 4.260 mIU/L (0.465-4.680) 11/10/21 03:30 Urine Color Yellow 11/10/21 21:15 Urine Appearance Cloudy (Clear) H 11/10/21 21:15 Urine pH 6.0 (5.0-8.0) 11/10/21 21:15 Ur Specific [place] 1.012 (1.001-1.035) 11/10/21 21:15 Urine Protein Trace (Negative) H 11/10/21 21:15 Urine Glucose (UA) Negative (Negative) 11/10/21 21:15 Urine Ketones Negative (Negative) 11/10/21 21:15 Urine Blood Negative (Negative) 11/10/21 21:15 Urine Nitrite Negative (Negative) 11/10/21 21:15 Urine Bilirubin Negative (Negative) 11/10/21 21:15 Urine Urobilinogen <2.0 mg/dL (<2.0) 11/10/21 21:15 Ur Leukocyte Esterase Negative (Negative) 11/10/21 21:15 Urine RBC 2 /hpf (0-5) 11/10/21 21:15 Urine WBC 15 /hpf (0-5) H 11/10/21 21:15 Ur Squamous Epith Cells 6 /hpf (0-4) H 11/10/21 21:15 Urine Bacteria Many /hpf (None) H 11/10/21 21:15 Urine Mucus Many /hpf (None) H 11/10/21 21:15 Urine HCG, Qual Not Detected (Not Detectd) 11/10/21 21:15 Urine Opiates Screen Negative (Negative) 11/10/21 21:15 Urine Methadone Screen Negative (Negative) 11/10/21 21:15 Ur Propoxyphene Screen Negative (Negative) 11/10/21 21:15 Urine Barbiturates Negative (Negative) 11/10/21 21:15 Ur Phencyclidine Scrn Negative (Negative) 11/10/21 21:15 Ur Amphetamine Screen Negative (Negative) 11/10/21 21:15 U Benzodiazepines Scrn Negative (Negative) 11/10/21 21:15 Urine Cocaine Screen Negative (Negative) 11/10/21 21:15 U Cannabinoids Screen Negative (Negative) 11/10/21 21:15 Urine Alcohol Negative (Negative) 11/10/21 21:15 Coronavirus (PCR) Not Detected (Not Detectd) 11/10/21 03:30 Allergies Allergy/AdvReac Type Severity Reaction Status Date / Time succinylcholine Allergy Severe Unknown Verified 11/10/21 04:41 slobid Allergy Unknown Uncoded 11/10/21 04:41 Childhood Patient Condition at Discharge: Stable Plan - Discharge Summary New Discharge Prescriptions: New ARIPiprazole [Abilify] 10 mg PO DAILY 30 Days tab buPROPion XL [Wellbutrin XL] 300 mg PO DAILY 30 Days tablet traZODone HCL [Desyrel] 50 mg PO HS PRN #30 tab PRN Reason: insomnia Continue Polyethylene Glycol 3350 [Clearlax] 17 gm PO DAILY Loratadine 10 mg PO DAILY Discharge Medication List Loratadine 10 mg PO DAILY 03/14/21 [History] Polyethylene Glycol 3350 [Clearlax] 17 gm PO DAILY 03/14/21 [History] ARIPiprazole [Abilify] 10 mg PO DAILY 30 Days tab 11/14/21 [Rx] buPROPion XL [Wellbutrin XL] 300 mg PO DAILY 30 Days tablet 11/14/21 [Rx] traZODone HCL [Desyrel] 50 mg PO HS PRN #30 tab 11/14/21 [Rx] Follow up Appointment(s)/Referral(s): None,Stated [Primary Care Provider] - 1-2 days Activity/Diet/Wound Care/Special Instructions: Activity and diet as tolerated. Avoid the use of street drugs and alcohol. Take all medications as prescribed. When you are in need of refills on your medications please contact your medical provider and/or outpatient psychiatrist to have this done. Please go to scheduled outpatient appointment for aftercare treatment. If symptoms return or become worse, call the crisis line at and/or go to the nearest emergency room for evaluation Discharge Disposition: HOME SELF-CARE
== END 2021-11-14 14:03 | disposition home or self-care (01) | DRG 885 ==
LOC: EC 22:51 → 3MHU 11-10 04:33
PROVIDERS: ADMIT Psychiatry & Neurology Psychiatry; ATTEND Psychiatry & Neurology Psychiatry
DX: F33.2 Major depressive disorder, recurrent severe without psychotic features (principal); R45.851 Suicidal ideations; F15.10 Other stimulant abuse, uncomplicated; G47.00 Insomnia, unspecified; I25.10 Atherosclerotic heart disease of native coronary artery without angina pectoris; Z59.00 Homelessness unspecified; Z79.899 Other long term (current) drug therapy; Z86.73 Personal history of transient ischemic attack (TIA), and cerebral infarction without residual deficits; Z87.74 Personal history of (corrected) congenital malformations of heart and circulatory system; Z20.822 Contact with and (suspected) exposure to COVID-19
CPT/HCPCS: 36415; 80053; 80061; 80306; 81001; 81025; 82075; 83036; 83721; 84443; 85025; 87635; 99285

== ENCOUNTER 2021-11-20 12:09 | Inpatient (IN) | payer MEDICARE, MEDICAID ==
--- NOTE | 2021-11-20 12:49 | ED ---
General Adult HPI - General Chief complaint: Psychiatric Symptoms Stated complaint: EPS eval Time Seen by Provider: 11/20/21 12:15 Source: patient, police, RN notes reviewed, old records reviewed Mode of arrival: ambulatory - History of Present Illness Initial comments: This is a 36-year-old female presents emergency Department in police custody. Police are filling out a petition currently. Patient was found in the bathroom with a knife refusing mild police had to coax out of the bathroom but the knife away she according to the mother was threatening the mother and threatened to kill himself as well. Patient refuses to talk to me when I ask her questions she turns her head toxicity also is not there and then returns back and tells me that Telly will not allow her to speak to me and she states Telly owns a hospital and he is watching as I can recall the whole time. She also states Telly is or was God. Patient denied any physical complaints. - Related Data Home Medications Medication Instructions Recorded Confirmed Loratadine 10 mg PO DAILY 03/14/21 11/20/21 Polyethylene Glycol 3350 [Clearlax] 17 gm PO DAILY 03/14/21 11/20/21 Previous Rx's Medication Instructions Recorded ARIPiprazole [Abilify] 10 mg PO DAILY 30 Days tab 11/14/21 buPROPion XL [Wellbutrin XL] 300 mg PO DAILY 30 Days tablet 11/14/21 traZODone HCL [Desyrel] 50 mg PO HS PRN #30 tab 11/14/21 Allergies Allergy/AdvReac Type Severity Reaction Status Date / Time succinylcholine Allergy Severe Unknown Verified 11/20/21 12:18 slobid Allergy Unknown Uncoded 11/20/21 12:18 Childhood Review of Systems ROS Statement: Those systems with pertinent positive or pertinent negative responses have been documented in the HPI. ROS Other: All systems not noted in ROS Statement are negative. Past Medical History Past Medical History: Coronary Artery Disease (CAD), CVA/TIA Additional Past Medical History / Comment(s): 2007 after child History of Any Multi-Drug Resistant Organisms: None Reported Past Surgical History: Bariatric Surgery, Section, Cholecystectomy, Tubal Ligation Additional Past Surgical History / Comment(s): PFO CLOSURE X2, OPEN HEART INFANT, Past Psychological History: Bipolar, Depression Smoking Status: Never smoker Past Alcohol Use History: None Reported Past Drug Use History: Marijuana, Methamphetamine General Exam - General Exam Comments Initial Comments: GENERAL: Patient is well-developed and well-nourished. Patient is nontoxic and well- hydrated and is in no acute distress. ENT: Neck is soft and supple. No significant lymphadenopathy is noted. Oropharynx is clear. Moist mucous membranes. Neck has full range of motion without eliciting any pain. EYES: The sclera were anicteric and conjunctiva were pink and moist. Extraocular movements were intact and pupils were equal round and reactive to light. Eyelids were unremarkable. PULMONARY: Unlabored respirations. Good breath sounds bilaterally. No audible rales rhonchi or wheezing was noted. CARDIOVASCULAR: There is a regular rate and rhythm without any murmurs gallops or rubs. ABDOMEN: Soft and nontender with normal bowel sounds. SKIN: Skin is clear with no lesions or rashes and otherwise unremarkable. NEUROLOGIC: Patient is alert and oriented would not answer questions about orientation. Cranial nerves II through XII are grossly intact. Motor and sensory are also intact. Normal speech, volume and content. Symmetrical smile. MUSCULOSKELETAL: Normal extremities with adequate strength and full range of motion. LYMPHATICS: No significant lymphadenopathy is noted PSYCHIATRIC: Patient is talking to somebody in the room that is not there she refuses to ans wer or suicidal homicidal behavior. Patient refuses to tell me why she had a knife today. Patient continues to tell me that we were being watched on camera and she wanted me to call Telly because he is watching as but she didn't want me to talk with my eye she wanted me to talk with my mouth on the phone. Course Vital Signs 11/20/21 12:15 Temperature 98.0 F Pulse Rate 92 Respiratory 20 Rate Blood Pressure 189/120 O2 Sat by Pulse 99 Oximetry Medical Decision Making - Medical Decision Making EPS evaluated the patient and I filled out a clinical certification have the patient admitted. Disposition Clinical Impression: Psychosis, Previous delivery affecting Disposition: ADMITTED IP TO THIS HOSP Referrals: None,Stated [Primary Care Provider] - 1-2 days Time of Disposition: 15:42
[2021-11-20] MEDS ORDERED: traZODone HCL 50 MG TAB PO PRN (20:48)
[2021-11-20] MEDS ORDERED: ACETAMINOPHEN TAB 325 MG TAB PO PRN (20:50)
[2021-11-20] MEDS ORDERED: HALOPERIDOL LACTATE 5 MG/ML 1 ML VIAL IM PRN (20:50)
[2021-11-20] MEDS ORDERED: MAGNESIUM HYDROXIDE 2,400 MG/10 ML CUP PO PRN (20:50)
[2021-11-20] MEDS ORDERED: LORazepam 1 MG TAB PO PRN (20:50)
[2021-11-20] MEDS ORDERED: MAG HYDROX/AL HYDROX/SIMETH 30 ML CUP PO PRN (20:50)
[2021-11-20] MEDS ORDERED: LORazepam 2 MG/ML INJ IM PRN (20:52)
[2021-11-20] MEDS ORDERED: haloperidoL 5 MG TAB PO PRN (20:52)
[2021-11-21] MEDS ORDERED: buPROPion XL 300 MG TAB.ER.24H PO SCH (09:00)
[2021-11-21] MEDS ORDERED: ARIPiprazole 10 MG TAB PO SCH (09:00)
[2021-11-21] MEDS: polyethylene glycoL 3350 17 GM POWD.PACK PO SCH (11:25)
[2021-11-21] MEDS: LORATADINE 10 MG TAB PO SCH ×2 (11:25→15:44)
--- NOTE | 2021-11-21 13:33 | P.HP ---
Psychiatric H&P - . H&P Date: 11/21/21 History & Physical: Allergies Allergy/AdvReac Type Severity Reaction Status Date / Time succinylcholine Allergy Severe Unknown Verified 11/20/21 12:18 slobid Allergy Unknown Uncoded 11/20/21 12:18 Childhood Vital Signs Temp 98.0 F 11/20/21 12:15 Pulse 89 11/20/21 20:00 Resp 18 11/20/21 20:00 BP 145/84 11/20/21 20:00 Pulse Ox 96 11/20/21 20:00 Intake & Output 11/20/21 11/21/21 11/21/21 18:59 06:59 18:59 Weight 90.718 kg Laboratory Last Values Coronavirus (PCR) Not Detected (Not Detectd) 11/20/21 17:39 11/21/21 13:33 IDENTIFYING DATA: Patient is a single, unemployed, homeless, 36-year-old female who presented the emergency department under petition and certification for suicidal and homicidal ideation. HPI: Patient presented to the hospital on 11/20/2021, brought into the emergency department by police under petition and certification after the patient threatened to kill herself with a knife in the bathroom after threatening her mother with said knife. As per petition filled out by the police, "threatened her mother with a knife and then locked herself in the bathroom with the knife - she also said she wanted to and wants the mom to . Officers had to take her out of the bathroom and found the knife on the bathroom floor." The patient was subsequently certified and admitted to the psychiatric unit. Currently, the patient is not willing to participate in the psychiatric interview and wishes to remain in bed. She does however acknowledge that she is suicidal and had thoughts of wanting to hurt her mother as well. She refuses to elaborate any further. The patient was most recently discharged from the psychiatric unit on 11/14/2021, on a regimen of Abilify and Wellbutrin. The patient did not go to her outpatient follow-up as her outpatient appointment with [facility] was scheduled for today. The patient does not wish to speak with this provider at this time, and due to the imminent risk of harm to self and others a second clinical certificate will be filed for the court. PAST PSYCHIATRIC HISTORY: From her previous admission, the patient has prior diagnoses of bipolar and depression. She was most recently admitted onto the psychiatric unit this past October and was discharged on 11/14/2021. She was discharged on a regimen of Wellbutrin and Abilify. She had another hospitalization at [facility] in 2020. She also had a hospitalization on this unit over 10 years ago. She was supposed to follow up with [facility] but is nonadherent with outpatient treatment. No reported previous psychiatric meds aside from Wellbutrin. PMH: Past Medical History: Coronary Artery Disease (CAD), CVA/TIA Additional Past Medical History / Comment(s): 2007 after child History of Any Multi-Drug Resistant Organisms: None Reported Past Surgical History: Bariatric Surgery, Section, Cholecystectomy, Tubal Ligation Additional Past Surgical History / Comment(s): PFO CLOSURE X2, OPEN HEART , Past Psychological History: Bipolar, Depression Smoking Status: Never smoker Past Alcohol Use History: None Reported Past Drug Use History: Marijuana, Methamphetamine ALLERGIES: Succinylcholine CHEMICAL DEPENDENCY HISTORY: The patient does have a significant history of methamphetamine abuse however remained guarded about her use during her last admission. Currently no urinary drug screen. FAMILY PSYCHIATRIC/SUBSTANCE USE HISTORY: Unable to assess. SOCIAL HISTORY: Patient is currently homeless. Unable to assess otherwise. MENTAL STATUS EXAM: General Appearance: Patient appears to be stated age is arousable however somnolent, irritable, and not willing to cooperate. Patient appears to have very poor hygiene and grooming. Behavior: Patient is lying down in bed with poor eye contact Speech: Patient's speech is minimal and josue. Mood/Affect: Patient reports their mood is depressed, affect is congruent and irritable. Suicidality/Homicidality: Patient endorses suicidal and homicidal ideation. Perceptions: Unable to assess. Though content/process: Unable to assess. Memory and concentration: Unable to assess. Judgment and insight: Poor. STRENGTHS/WEAKNESSES: Unable to identify patient's strengths at this time. Weaknesses include ongoing issues with substance abuse, homelessness, and lack of insight, judgment, and frustration tolerance. INTELLECT: average IMPRESSIONS: Major depressive disorder, recurrent, severe Methamphetamine abuse PLAN: -Patient is admitted under involuntary status to [facility] for stabilization of psychiatric symptoms and safety. A second certification was completed and along with petition will be filed for court. -Medications : Will start patient on Risperdal 1 mg by mouth twice a day for mood stabilization/augmentation of antidepressant Discontinue Wellbutrin due to concerns for possible irritability and over activation. Also concerned about methamphetamine abuse along with Wellbutrin. We will start Celexa 10 mg by mouth daily for depression/anxiety. -Ativan and Haldol PRN for agitation/aggression Patient was counseled on substance abuse however refuses to respond this provider.- -Patient was informed of the risks, benefits and side effects of the medication however the patient refuses to participate in informed consent discussion. -Internal Medicine consult to perform medical evaluation and physical. -NRT - nicotine patch -SW on board for discharge planning. Encourage patient to participate in groups to work on coping skills. 11/21/21 13:33
--- NOTE | 2021-11-21 18:36 | P.MDCNMH ---
History of Present Illness H&P Date: 11/21/21 Chief Complaint: Tongue pain Patient is a 36-year-old female with PMH of bipolar disorder, depression, TIA, diabetes mellitus, PFO closure presented to the ED under petition and certification for suicidal and homicidal ideation. She has been admitted to the mental health unit for further management of her psychiatric condition. [facility] has been consulted for medical management of this patient. Patient currently reports tongue pain has been ongoing for the past 1 week. She reports a history of TIA in the past for which she was started on aspirin. She has stopped taking aspirin over an unspecified period of time. She denies any headache, lower extremity edema, nausea or vomiting, fever or chills, cough, chest pain, shortness of breath, palpitations, changes in urination or bowel habits. No changes in appetite or weight. She denies any dizziness, nu mbness/weakness/tingling of the extremities. Patient's vital signs have been stable. Her most recent BP is 145/84. Review of Systems All systems: negative Past Medical History Past Medical History: Coronary Artery Disease (CAD), CVA/TIA Additional Past Medical History / Comment(s): 2007 after child History of Any Multi-Drug Resistant Organisms: None Reported Past Surgical History: Bariatric Surgery, Section, Cholecystectomy, Tubal Ligation Additional Past Surgical History / Comment(s): PFO CLOSURE X2, OPEN HEART , Past Psychological History: Bipolar, Depression Smoking Status: Never smoker Past Alcohol Use History: None Reported Past Drug Use History: Marijuana, Methamphetamine Medications and Allergies Home Medications Medication Instructions Recorded Confirmed Type Loratadine 10 mg PO DAILY 03/14/21 11/20/21 History Polyethylene Glycol 3350 [Clearlax] 17 gm PO DAILY 03/14/21 11/20/21 History ARIPiprazole [Abilify] 10 mg PO DAILY 30 Days tab 11/14/21 11/20/21 Rx buPROPion XL [Wellbutrin XL] 300 mg PO DAILY 30 Days tablet 11/14/21 11/20/21 Rx traZODone HCL [Desyrel] 50 mg PO HS PRN #30 tab 11/14/21 11/20/21 Rx Allergies Allergy/AdvReac Type Severity Reaction Status Date / Time succinylcholine Allergy Severe Unknown Verified 11/20/21 12:18 slobid Allergy Unknown Uncoded 11/20/21 12:18 Childhood Physical Exam Vitals: Vital Signs Pulse Resp BP Pulse Ox 11/20/21 20:00 89 18 145/84 96 General: [non toxic], [no distress], [appears at stated age] Derm: [warm], [dry] Head: [atraumatic], [normocephalic], [symmetric] Eyes: [EOMI], [no lid lag], [anicteric sclera] Mouth: [no lip lesion], [mucus membranes moist], [apthous ulcer of the tongue] Cardiovascular: [S1S2 reg], [no murmur] Lungs: [CTA bilateral], [no rhonchi, no rales] , [no accessory muscle use] Abdominal: [soft], [ nontender to palpation], [no guarding], [no appreciable organomegaly] Ext: [no gross muscle atrophy], [no edema], [no contractures] Neuro: [ CN II-XI grossly intact], [no focal neuro deficits] Psych: [Alert], [oriented], [appropriate affect] Cranial Nerve Examination - Cranial Nerves Cranial Nerve I- Olfactory: Intact Cranial Nerve II- Optic: Intact Cranial Nerve III- Oculomotor: Intact Cranial Nerve IV- Trochlear: Intact Cranial Nerve V- Trigeminal: Intact Cranial Nerve - Abducens: Intact Cranial Nerve VII- Facial: Intact Cranial Nerve VIII- Auditory: Intact Cranial Nerve IX- Glossopharyngeal: Intact Cranial Nerve X- Vagus: Intact Cranial Nerve XI- Accessory: Intact Cranial Nerve XII- Hypoglossal: Intact Assessment and Plan Assessment: #Apthous ulcer #History of TIA #Pre-diabetes #Morbid obesity Patient appears to have apthous ulcer on her tongue. She will be started on chlorhexidine mouthwash twice a day. Patient reports history of TIA. She was previously on aspirin but has not taken her medication in an unspecified period of time. Her most recent lipid panel in October 2021 shows total cholesterol of 126 and LDL 62. She will be restarted on aspirin 81 mg by mouth. Patient will be started on carbohydrate consistent diet. Patient would benefit from a structured weight loss program.
[2021-11-21] MEDS: CHLORHEXIDINE GLUCONATE 15 ML CUP MUCOUS MEM SCH ×2 (21:52→21:56)
[2021-11-21] MEDS: risperiDONE 1 MG TAB PO SCH (21:52)
[2021-11-22] MEDS: polyethylene glycoL 3350 17 GM POWD.PACK PO SCH (08:24)
[2021-11-22] MEDS: ASPIRIN 81 MG PO SCH (08:25)
[2021-11-22] MEDS: LORATADINE 10 MG TAB PO SCH (08:25)
[2021-11-22] MEDS: CHLORHEXIDINE GLUCONATE 15 ML CUP MUCOUS MEM SCH ×2 (08:25→21:28)
[2021-11-22] MEDS: risperiDONE 1 MG TAB PO SCH ×2 (08:25→20:35)
[2021-11-22] MEDS ORDERED: CITALOPRAM HYDROBROMIDE 10 MG TAB PO SCH (09:00)
--- NOTE | 2021-11-22 12:22 | P.PN ---
Progress Note - Text Progress Note Date: 11/22/21 Interval History: Patient was seen resting in bed however continued to refuse to speak with this provider. She refuses to answer any questions or get up to participate in the psychiatric interview. She has been intermittently adherent with her medications however has been taking her psychotropic medications. As noted by staff, she does get up for meals however has not been attending any groups. This provider inquired about any medical issues or concerns however the patient continues to refuse to speak at this time. Mental Status Exam: General Appearance: Patient appears to be stated age is arousable however somnolent, and not willing to cooperate. Behavior: Patient is lying down in bed with poor eye contact Speech: Patient is selectively mute at this time. Mood/Affect: Unable to assess patient mood. Affect appears somnolent. Suicidality/Homicidality: Unable to assess. Perceptions: Unable to assess. Though content/process: Unable to assess. Memory and concentration: Unable to assess. Judgment and insight: Poor. Vital Signs Temp 96.2 F L 11/22/21 07:03 Pulse 57 L 11/22/21 07:03 Resp 16 11/22/21 07:03 BP 73/43 11/22/21 07:03 Pulse Ox 96 11/20/21 20:00 Assessment Major depressive disorder, recurrent, severe Methamphetamine abuse Plan: -Patient continues to meet criteria for inpatient psychiatric admission for symptom stabilization and safety. The patient has been petitioned and certif ied. Second clinical stability was filled out for the court. -Medications: Increase Risperdal to 1.5 mg by mouth twice a day for mood stabilization/augmentation of antidepressant Increase Celexa to 20 mg by mouth daily for depression/anxiety -When necessary Ativan and Haldol for agitation/aggression. -NRT - nicotine patch -SW on board for discharge planning. Encouraged the patient to participate in milieu.
[2021-11-23] MEDS: LORATADINE 10 MG TAB PO SCH (08:59)
[2021-11-23] MEDS: risperiDONE 1 MG TAB PO SCH (08:59)
[2021-11-23] MEDS: CITALOPRAM HYDROBROMIDE 20 MG TAB PO SCH (08:59)
[2021-11-23] MEDS: ASPIRIN 81 MG PO SCH (08:59)
[2021-11-23] MEDS: polyethylene glycoL 3350 17 GM POWD.PACK PO SCH (09:03)
[2021-11-23] MEDS: CHLORHEXIDINE GLUCONATE 15 ML CUP MUCOUS MEM SCH ×2 (09:03→21:43)
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
[2021-11-23] MEDS ORDERED: risperiDONE 2 MG TAB PO SCH ×2 (21:00)
[2021-11-23] MEDS ORDERED: risperiDONE 1 MG TAB PO SCH (21:00)
[2021-11-24] MEDS: CHLORHEXIDINE GLUCONATE 15 ML CUP MUCOUS MEM SCH ×2 (12:48→19:37)
[2021-11-24] MEDS: CITALOPRAM HYDROBROMIDE 20 MG TAB PO SCH (12:48)
[2021-11-24] MEDS: ASPIRIN 81 MG PO SCH (12:48)
[2021-11-24] MEDS: polyethylene glycoL 3350 17 GM POWD.PACK PO SCH (12:50)
[2021-11-24] MEDS: LORATADINE 10 MG TAB PO SCH (12:50)
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
[2021-11-24] MEDS: risperiDONE 1 MG TAB PO SCH (19:37)
[2021-11-25] MEDS: ASPIRIN 81 MG PO SCH (07:58)
[2021-11-25] MEDS: LORATADINE 10 MG TAB PO SCH (07:58)
[2021-11-25] MEDS: CITALOPRAM HYDROBROMIDE 20 MG TAB PO SCH (07:58)
[2021-11-25] MEDS: polyethylene glycoL 3350 17 GM POWD.PACK PO SCH (08:01)
[2021-11-25] MEDS: CHLORHEXIDINE GLUCONATE 15 ML CUP MUCOUS MEM SCH ×2 (15:45→21:19)
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
[2021-11-25] MEDS: risperiDONE 1 MG TAB PO SCH (21:19)
[2021-11-26] MEDS: CHLORHEXIDINE GLUCONATE 15 ML CUP MUCOUS MEM SCH ×2 (08:19→20:39)
[2021-11-26] MEDS: ASPIRIN 81 MG PO SCH (08:19)
[2021-11-26] MEDS: LORATADINE 10 MG TAB PO SCH (08:19)
[2021-11-26] MEDS: polyethylene glycoL 3350 17 GM POWD.PACK PO SCH (08:19)
[2021-11-26] MEDS: CITALOPRAM HYDROBROMIDE 20 MG TAB PO SCH (08:19)
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
[2021-11-26] MEDS: risperiDONE 1 MG TAB PO SCH (20:39)
[2021-11-27] MEDS: CHLORHEXIDINE GLUCONATE 15 ML CUP MUCOUS MEM SCH ×2 (08:36→20:40)
[2021-11-27] MEDS: ASPIRIN 81 MG PO SCH (08:36)
[2021-11-27] MEDS: polyethylene glycoL 3350 17 GM POWD.PACK PO SCH (08:36)
[2021-11-27] MEDS: CITALOPRAM HYDROBROMIDE 20 MG TAB PO SCH (08:37)
[2021-11-27] MEDS: LORATADINE 10 MG TAB PO SCH (08:37)
--- NOTE | 2021-11-27 09:53 | P.PN ---
Subjective Progress Note Date: 11/27/21 Principal diagnosis: Psychotic disorder unspecified Rule out schizoaffective disorder Methamphetamine use disorder unspecified Interval history: Patient was directable and agreeable to speak with headline writer. She has just showered and appearance is improved. She reports her mood is "pretty good". 'I asked the other doctor to give me the Wellbutrin but she declined When explained that she has a methamphetamine use problems and that it could worsen that patient continues to still rationalize Patient states that she was rehospitalized since last month At this time patient denies any suicidal or homicidal ideations, intent or plan. . Patient has been compliant with medications. She admits to using methamphetamine on a regular basis She states that she previously was hospitalized about a month ago and then prior to that was about 12 years ago Patient remains very vague about how she had been able to provide for herself all these years Mental status exam: General Appearance: Patient appears to be stated age is alert, directable, and cooperative. She is showered, appearance improved. Behavior: No agitated behavior. Patient is calm and directable. Speech: Patient's speech is fluent and nonpressured; speaks in childlike voice. Mood/Affect: Mood is "pretty good", affect is congruent and euthymic. Suicidality/Homicidality: Patient denies having any suicidal or homicidal ideation intent or plan. Perceptions: She denies any visual hallucinations. She reports hearing "spirits" and reports they talk to her, they come to her and ask her questions about the past. Though content/process: There is no evidence of any delusional thought content and thought process is linear and goal-directed. Memory and concentration: AOX3, grossly intact for the purposes of this session Judgment and insight: Poor. Assessment/Plan: Continue with current diagnosis. Patient continues to meet criteria for inpatient psychiatric admission for symptom stabilization and safety. Continue Risperdal 1.5 mg QHS for psychosis. Recommend DBT therapy as an outpatient. Monitor for medication compliance and for any psychotropic medication side effects. Will continue to monitor ongoing response to treatment. Encouraged participation in milieu. Patient would be a good candidate for referral to a substance use program/half way house/residential treatment Cuauhtemoc Rodrigue Poe 11/27/2021 Objective - Vital Signs Vital signs: Vital Signs Temp 98.7 F 11/27/21 06:54 Pulse 61 11/27/21 06:54 Resp 20 11/26/21 06:48 BP 106/68 11/27/21 06:54 Pulse Ox 98 11/27/21 06:54
[2021-11-27] MEDS: risperiDONE 1 MG TAB PO SCH (20:41)
[2021-11-28] MEDS: LORATADINE 10 MG TAB PO SCH (08:39)
[2021-11-28] MEDS: CITALOPRAM HYDROBROMIDE 20 MG TAB PO SCH (08:39)
[2021-11-28] MEDS: ASPIRIN 81 MG PO SCH (08:39)
[2021-11-28] MEDS: CHLORHEXIDINE GLUCONATE 15 ML CUP MUCOUS MEM SCH ×2 (08:40→20:41)
[2021-11-28] MEDS: polyethylene glycoL 3350 17 GM POWD.PACK PO SCH (08:40)
--- NOTE | 2021-11-28 09:58 | P.PN ---
Subjective Progress Note Date: 11/28/21 Principal diagnosis: Psychotic disorder unspecified Rule out schizoaffective disorder Methamphetamine use disorder unspecified Interval history: Patient was directable and agreeable to speak with song writer. She reports her mood is "pretty good". Patient's asked about being on a shot that she used to take before and felt that she it worked well for her When asked if this was in[place] patient stated that he was most likely so She states that she is currently on a waiting list to be accepted at a substance use program She states that she has been using methamphetamine for about 5 years but has never been offered any treatment At this time patient denies any suicidal or homicidal ideations, intent or plan. . Patient has been compliant with medications. She admits to using methamphetamine on a regular basis She states that she previously was hospitalized about a month ago and then prior to that was about 12 years ago Mental status exam: General Appearance: Patient appears to be stated age is alert, directable, and cooperative. She is showered, appearance improved. Behavior: No agitated behavior. Patient is calm and directable. Speech: Patient's speech is fluent and nonpressured; speaks in childlike voice. Mood/Affect: Mood is "pretty good", affect is congruent and euthymic. Suicidality/Homicidality: Patient denies having any suicidal or homicidal ideation intent or plan. Perceptions: She denies any visual hallucinations. She reports hearing "spirits" and reports they talk to her, they come to her and ask her questions about the past. Though content/process: There is no evidence of any delusional thought content and thought process is linear and goal-directed. Memory and concentration: AOX3, grossly intact for the purposes of this session Judgment and insight: Has improved Assessment/Plan: Continue with current diagnosis. Patient continues to meet criteria for inpatient psychiatric admission for symptom stabilization and safety. Continue Risperdal 1.5 mg QHS for psychosis. Recommend DBT therapy as an outpatient. Monitor for medication compliance and for any psychotropic medication side effects. Will continue to monitor ongoing response to treatment. Encouraged participation in milieu. Patient would be a good candidate for referral to a substance use program/half way house/residential treatment Patient would be a good candidate for referral to a substance use program Cuauhtemoc Husain M.D. 11/28/2021 Objective - Vital Signs Vital signs: Vital Signs Temp 98.7 F 11/27/21 06:54 Pulse 61 11/27/21 06:54 Resp 20 11/26/21 06:48 BP 106/68 11/27/21 06:54 Pulse Ox 98 11/27/21 06:54
[2021-11-28] MEDS: risperiDONE 1 MG TAB PO SCH (20:41)
[2021-11-29] MEDS: CHLORHEXIDINE GLUCONATE 15 ML CUP MUCOUS MEM SCH ×2 (08:39→20:08)
[2021-11-29] MEDS: ASPIRIN 81 MG PO SCH (08:40)
[2021-11-29] MEDS: CITALOPRAM HYDROBROMIDE 20 MG TAB PO SCH (08:40)
[2021-11-29] MEDS: LORATADINE 10 MG TAB PO SCH (08:40)
[2021-11-29] MEDS: polyethylene glycoL 3350 17 GM POWD.PACK PO SCH (08:41)
--- NOTE | 2021-11-29 09:25 | P.PN ---
Subjective Progress Note Date: 11/29/21 Principal diagnosis: Psychotic disorder unspecified Rule out schizoaffective disorder Methamphetamine use disorder unspecified Interval history: Patient was directable and agreeable to speak with jingle writer. She reports her mood is "pretty good". Patient says that she always has communication with the spirits that never go away but does not bother her and that they're comforting She states that she is currently on a waiting list to be accepted at a substance use program Patient has been compliant with medications. Mental status exam: General Appearance: Patient appears to be stated age is alert, directable, and cooperative. She is showered, appearance improved. Behavior: No agitated behavior. Patient is calm and directable. Speech: Patient's speech is fluent and nonpressured; s Mood/Affect: Mood is "pretty good", affect is congruent and euthymic. Suicidality/Homicidality: Patient denies having any suicidal or homicidal ideation intent or plan. Perceptions: She denies any visual hallucinations. She reports hearing "spirits" and reports they talk to her, they come to her and ask her questions about the past. Though content/process: There is no evidence of any delusional thought content and thought process is linear and goal-directed. Memory and concentration: AOX3, grossly intact for the purposes of this session Judgment and insight: Has improved Assessment/Plan: Continue with current diagnosis. Patient continues to meet criteria for inpatient psychiatric admission for symptom stabilization and safety. Continue Risperdal 1.5 mg QHS for psychosis. Recommend DBT therapy as an outpatient. Monitor for medication compliance and for any psychotropic medication side effects. Will continue to monitor ongoing response to treatment. Encouraged participation in milieu. Patient's packages been sent to several substance use programs for approval and acceptance Patient meantime continues to need of current setting until a lower level of care is available Cuauhtemoc Rodrigue Poe 11/29/2021 Objective - Vital Signs Vital signs: Vital Signs Temp 98.7 F 11/27/21 06:54 Pulse 61 11/27/21 06:54 Resp 20 11/26/21 06:48 BP 106/68 11/27/21 06:54 Pulse Ox 98 11/27/21 06:54
[2021-11-29] MEDS: risperiDONE 1 MG TAB PO SCH (20:08)
[2021-11-30 06:56] VITALS: BP 106/69; PULSE 67; RESP 16; TEMP 97.9
[2021-11-30] MEDS: ASPIRIN 81 MG PO SCH (08:16)
[2021-11-30] MEDS: CHLORHEXIDINE GLUCONATE 15 ML CUP MUCOUS MEM SCH (08:16)
[2021-11-30] MEDS: LORATADINE 10 MG TAB PO SCH (08:16)
[2021-11-30] MEDS: CITALOPRAM HYDROBROMIDE 20 MG TAB PO SCH (08:17)
[2021-11-30] MEDS: polyethylene glycoL 3350 17 GM POWD.PACK PO SCH (08:18)
--- NOTE | 2021-11-30 09:30 | P.DS ---
Providers Date of admission: 11/20/21 20:40 Attending physician: Curtis Mancini MD Consults: 11/20/21 20:50 Consult Physician Routine Consulting Provider: Georgia Rose Consult Reason/Comments: H&P and medical Do you want consulting provider notified?: Yes Primary care physician: Stated None Hospital Course: This is a discharge summary on Floyd Funes who is a 36-year-old female with the history of schizophrenia and methamphetamine use disorder IDENTIFYING DATA: Patient is a single, unemployed, homeless, 36-year-old female who presented the emergency department under petition and certification for suicidal and homicidal ideation. HPI: Patient presented to the hospital on 11/20/2021, brought into the emergency department by police under petition and certification after the patient threatened to kill herself with a knife in the bathroom after threatening her mother with said knife. As per petition filled out by the police, "threatened her mother with a knife and then locked herself in the bathroom with the knife - she also said she wanted to and wants the mom to . Officers had to take her out of the bathroom and found the knife on the bathroom floor." The patient was subsequently certified and admitted to the psychiatric unit. Currently, the patient is not willing to participate in the psychiatric interview and wishes to remain in bed. She does however acknowledge that she is suicidal and had thoughts of wanting to hurt her mother as well. She refuses to elaborate any further. The patient was most recently discharged from the psychiatric unit on 11/14/2021, on a regimen of Abilify and Wellbutrin. The patient did not go to her outpatient follow-up as her outpatient appointment with [facility] was scheduled for today. The patient does not wish to speak with this provider at this time, and due to the imminent risk of harm to self and others a second clinical certificate will be filed for the court. PAST PSYCHIATRIC HISTORY: From her previous admission, the patient has prior diagnoses of bipolar and depression. She was most recently admitted onto the psychiatric unit this past October and was discharged on 11/14/2021. She was discharged on a regimen of Wellbutrin and Abilify. She had another hospitalization at [facility] in 2020. She also had a hospitalization on this unit over 10 years ago. She was supposed to follow up with [facility] but is nonadherent with outpatient treatment. No reported previous psychiatric meds aside from Wellbutrin. Hospital course After hospitalization patient received a routine physical examination read no a cute physical issues were identified at this time that require attention Psychiatric Findings Suicidal Agitation and Dysphoria Low Self-Esteem and Confidence Complaining of Unusual Perceptual Disturbances like Spirits Therapist Focused on Providing Supportive Care Improving Her Coping Abilities with a Multimodal Treatment. Pharmacotherapy Included Starting the Patient on Risperdal 1.5 Mg at Nighttime and Trazodone 50 Mg at Bedtime When Necessary Patient However States That the Voices Were the Spirits Experience Never Seemed to Go Away and May Be Related to Her Heavy Methamphetamine Use Disorder Patient's General Demeanor in General Remained Data from Friendliness and remained cooperative She was easily redirectable Patient in general shows passive dependency traits at this time was fell that the patient be best served if placed in a substance use program with senior living planning for a supervised living status and eventual rehabilitation Patient is agreeable to that and eventually today patient has been accepted to the facility where she was started in the program Patient was discharged in a stable condition with recommendations to follow-up as directed Patient is not a danger to herself or others and is motivated for ongoing treatment. Cuauhtemoc Husain M.D. 11/30/2021 Patient Condition at Discharge: Good Plan - Discharge Summary Discharge Rx Participant: Yes New Discharge Prescriptions: No Action Polyethylene Glycol 3350 [Clearlax] 17 gm PO DAILY ARIPiprazole [Abilify] 10 mg PO DAILY 30 Days tab buPROPion XL [Wellbutrin XL] 300 mg PO DAILY 30 Days tablet Loratadine 10 mg PO DAILY traZODone HCL [Desyrel] 50 mg PO HS PRN #30 tab PRN Reason: insomnia Discharge Medication List Loratadine 10 mg PO DAILY 03/14/21 [History] Polyethylene Glycol 3350 [Clearlax] 17 gm PO DAILY 03/14/21 [History] ARIPiprazole [Abilify] 10 mg PO DAILY 30 Days tab 11/14/21 [Rx] buPROPion XL [Wellbutrin XL] 300 mg PO DAILY 30 Days tablet 11/14/21 [Rx] traZODone HCL [Desyrel] 50 mg PO HS PRN #30 tab 11/14/21 [Rx] Follow up Appointment(s)/Referral(s): [facility] [Outside] - 11/30/21 11:15 am (Intake ) [facility] - [facility] Week Patient Instructions/Handouts: Mood Disorders (DC), Depression (DC), Methamphetamine Abuse (DC), Psychotic Disorder (DC) Activity/Diet/Wound Care/Special Instructions: Activity and diet as tolerated. Avoid the use of street drugs and alcohol. Take all medications as prescribed. When you are in need of refills on your medications please contact your medical provider and/or outpatient psychiatrist to have this done. Please go to scheduled outpatient appointment for aftercare treatment. If symptoms return or become worse, call the crisis line at and/or go to the nearest emergency room for evaluation Discharge Disposition: OTHER INSTITUTION NOT DEFINED
[2021-11-30 11:42] VITALS: BMI 30.4
== END 2021-11-30 12:04 | DRG 885 ==
LOC: EC 12:09 → 3MHU 20:40
PROVIDERS: ADMIT Psychiatry & Neurology Psychiatry; ATTEND Psychiatry & Neurology Psychiatry
DX: F20.9 Schizophrenia, unspecified (principal); R45.851 Suicidal ideations; Q21.1 Atrial septal defect; F15.10 Other stimulant abuse, uncomplicated; I25.10 Atherosclerotic heart disease of native coronary artery without angina pectoris; R45.850 Homicidal ideations; K14.0 Glossitis; E66.01 Morbid (severe) obesity due to excess calories; Z68.30 Body mass index [BMI] 30.0-30.9, adult; Z59.00 Homelessness unspecified; Z79.899 Other long term (current) drug therapy; Z86.73 Personal history of transient ischemic attack (TIA), and cerebral infarction without residual deficits; Z87.74 Personal history of (corrected) congenital malformations of heart and circulatory system; Z91.410 Personal history of adult physical and sexual abuse; Z91.411 Personal history of adult psychological abuse; Z98.891 History of uterine scar from previous surgery; Z98.890 Other specified postprocedural states; Z28.310 Unvaccinated for COVID-19; Z20.822 Contact with and (suspected) exposure to COVID-19; Z56.0 Unemployment, unspecified; Z71.3 Dietary counseling and surveillance; Z98.84 Bariatric surgery status; Z98.51 Tubal ligation status; Z90.49 Acquired absence of other specified parts of digestive tract; Z88.8 Allergy status to other drugs, medicaments and biological substances
CPT/HCPCS: 82075; 87635; 99285

== ENCOUNTER 2024-07-26 09:45 | Inpatient (IN) | payer MEDICARE, MEDICAID ==
--- NOTE | 2024-07-26 10:07 | ED ---
Psych HPI - General Stated Complaint: Petition Time Seen by Provider: 07/26/24 10:06 Source: patient, police, RN notes reviewed Mode of arrival: ambulatory Limitations: no limitations - History of Present Illness Initial Comments: 39-year-old female presented to the ER for evaluation of mental health. Patient reports she was just spent the past 21 days in detention as she was not paying child support. Patient is petitioned by her parent. 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 Hospital numbers are scared of her as they are concerned she may harm them. Patient denies homicidal or suicidal ideations. Patient isolates herself and has conversations with herself. They also report patient is unable to hold a job down as she is a liability. Patient denies any drug or alcohol use. Patient denies any current chest pain, shortness of breath, dizziness, lightheadedness, cough, congestion, fevers, chills, abdominal pain, constipation/diarrhea, urinary complaints or peripheral edema. - Related Data Home Medications Medication Instructions Recorded Confirmed No Known Home Medications 07/26/24 07/26/24 Allergies Allergy/AdvReac Type Severity Reaction Status Date / Time succinylcholine Allergy Severe delayed Verified 07/26/24 12:21 waking from surgery slobid Allergy Unknown Uncoded 07/26/24 10:39 Childhood Review of Systems ROS Statement: Those systems with pertinent positive or pertinent negative responses have been documented in the HPI. ROS Other: All systems not noted in ROS Statement are negative. Past Medical History Past Medical History: Coronary Artery Disease (CAD), CVA/TIA Additional Past Medical History / Comment(s): 2007 after child History of Any Multi-Drug Resistant Organisms: None Reported Past Surgical History: Bariatric Surgery, Section, Cholecystectomy, Tubal Ligation Additional Past Surgical History / Comment(s): PFO CLOSURE X2, OPEN HEART INFANT, Past Psychological History: Bipolar, Depression Smoking Status: Never smoker Past Alcohol Use History: None Reported Past Drug Use History: Marijuana, Methamphetamine - Past Family History Mother History Unknown: Yes General Exam - General Exam Comments Initial Comments: Visual Physical Exam Vital signs reviewed General: Well-appearing, nontoxic, no acute distress. Head: Normocephalic, atraumatic Eyes: PERRLA, EOMI ENT: Airway patent Chest: Nonlabored breathing Skin: No visual rash, normal skin tone Neuro: Alert and oriented 3 Musculoskeletal: No gross abnormalities Limitations: no limitations General appearance: alert, in no apparent distress Respiratory exam: Present: normal lung sounds bilaterally. Absent: respiratory distress, wheezes, rales, rhonchi, stridor Cardiovascular Exam: Present: regular rate, normal rhythm, normal heart sounds. Absent: systolic murmur, diastolic murmur, rubs, gallop, clicks GI/Abdominal exam: Present: soft, normal bowel sounds. Absent: distended, tenderness, guarding, rebound, rigid Neurological exam: Present: alert, oriented X3, CN II-XII intact Psychiatric exam: Present: flat affect Skin exam: Present: warm, dry, intact, normal color. Absent: rash Course Vital Signs 07/26/24 07/26/24 10:35 18:42 Temperature 97.9 F 98.1 F Pulse Rate 67 60 Respiratory 22 18 Rate Blood Pressure 122/72 133/77 O2 Sat by Pulse 98 100 Oximetry Medical Decision Making - Medical Decision Making I performed the quick note portion of this chart. Electronically signed by Mari Johnson PA-C Was pt. sent in by a medical professional or institution ([facility], SPREADER, urgent care, hospital, or retirement...) When possible be specific @ -No Did you speak to anyone other than the patient for history (EMS, parent, family, police, friend...)? What history was obtained from this source @ -No Did you review nursing and triage notes (agree or disagree)? Why? @ -I reviewed and agree with nursing and triage notes Were old charts reviewed (outside hosp., previous admission, EMS record, old EKG, old radiological studies, urgent care reports/EKG's, retirement records)? Report findings @ -No old charts were reviewed Differential Diagnosis (chest pain, altered mental status, abdominal pain women, abdominal pain men, vaginal bleeding, weakness, fever, dyspnea, syncope, headache, dizziness, GI bleed, back pain, seizure, CVA, palpatations, mental health, musculoskeletal)? @ -Differential Mental Health: Depression, anxiety, bipolar, psychosis, schizophrenia, borderline personality, situational depression, adjustment disorder, behavioral disorder, brain tumor, malingering, substance abuse, encephalopathy, medication reaction, dementia, hypothyroidism, degenerative neurologic disorder, lupus.... This is not meant to be all-inclusive list EKG interpreted by me (3pts min.). @ -None done X-rays interpreted by me (1pt min.). @ -None done CT interpreted by me (1pt min.). @ -None done U/S interpreted by me (1pt. min.). @ -None done What testing was considered but not performed or refused? (CT, X-rays, U/S, labs)? Why? @ -None What meds were considered but not given or refused? Why? @ -None Did you discuss the management of the patient with other professionals (professionals i.e. , PA, SPREADER, lab, RT, psych nurse, psychiatric social worker, advertising production manager, teacher, energy control officer, case checker)? Give summary @ -Case discussed with ROSALIND Lee, who advises on admission. Patient signed herself in. Was smoking cessation discussed for >3mins.? @ -No Was critical care preformed (if so, how long)? @ -No Were there social determinants of health that impacted care today? How? (Homelessness, low income, unemployed, alcoholism, drug addiction, transportation, low edu. Level, literacy, decrease access to med. care, detention, rehab)? @ -Patient recently incarcerated for 21 days. Was there de-escalation of care discussed even if they declined (Discuss DNR or withdrawal of care, Hospice)? DNR status @ -No What co-morbidities impacted this encounter? (DM, HTN, Smoking, COPD, CAD, Cancer, CVA, ARF, Chemo, Hep., AIDS, mental health diagnosis, sleep apnea, morbid obesity)? @ -Mental health Was patient admitted / discharged? Hospital course, mention meds given and route, prescriptions, significant lab abnormalities, going to OR and other pertinent info. @ -Admitted. 39-year-old female presented to the ER for evaluation of mental health. History and physical exam completed. Vitals within normal limit. BAT 0.00. Patient medically cleared for EPS evaluation. [facility], advised on admission. Patient signed herself in. Patient will be admitted for further evaluation and treatment. Case discussed with the attending by Dr. Yoon. Undiagnosed new problem with uncertain prognosis? @ -No Drug Therapy requiring intensive monitoring for toxicity (Heparin, Nitro, Insulin, Cardizem)? @ -No Were any procedures done? @ -No Diagnosis/symptom? @ -Depression Acute, or Chronic, or Acute on Chronic? @ -Acute Uncomplicated (without systemic symptoms) or Complicated (systemic symptoms)? @ -Complicated Side effects of treatment? @ -No Exacerbation, Progression, or Severe Exacerbation? @ -No Poses a threat to life or bodily function? How? (Chest pain, USA, MS, pneumonia, PE, COPD, DKA, ARF, appy, cholecystitis, CVA, Diverticulitis, Homicidal, Suicidal, threat to staff... and all critical care pts) @ -Homicidal ideations are life-threatening - Lab Data Lab Results 07/26/24 07/26/24 07/26/24 Range/Units 10:53 10:53 12:47 Urine HCG, Qual Not Detected (Not Detectd) Urine Opiates Screen Not Detected (NotDetected) Ur Oxycodone Screen Not Detected (NotDetected) Urine Methadone Screen Not Detected (NotDetected) Ur Barbiturates Screen Not Detected (NotDetected) U Tricyclic Antidepress Not Detected (NotDetected) Ur Phencyclidine Scrn Not Detected (NotDetected) Ur Amphetamines Screen Not Detected (NotDetected) U Methamphetamines Scrn Not Detected (NotDetected) U Benzodiazepines Scrn Not Detected (NotDetected) Urine Cocaine Screen Not Detected (NotDetected) U Marijuana (THC) Screen Not Detected (NotDetected) SARS-CoV-2 (PCR) Not Detected (Not Detectd) Disposition Clinical Impression: Depression Disposition: ADMITTED IP TO THIS HOSP Condition: Stable Time of Disposition: 13:49
[2024-07-26 14:57] LABS: Amphetamine Screen,Urine Not Detected (NotDetected); Barbiturate Screen,Urine Not Detected (NotDetected); Benzodiazepines Screen,Urine Not Detected (NotDetected); Cocaine Screen,Urine Not Detected (NotDetected); Methadone Screen, Urine Not Detected (NotDetected); Opiate Screen,Urine Not Detected (NotDetected); Oxycodone Screen, Urine Not Detected (NotDetected); Phencyclidine Screen,Urine Not Detected (NotDetected); Tricyclic Antidepressant,Urine Not Detected (NotDetected); Urn Cannabinoid Scrn Not Detected (NotDetected)
[2024-07-26] MEDS ORDERED: HALOPERIDOL LACTATE 5 MG/ML 1 ML VIAL IM PRN (19:40)
[2024-07-26] MEDS ORDERED: MAGNESIUM HYDROXIDE 2,400 MG/30 ML CUP PO PRN (19:40)
[2024-07-26] MEDS ORDERED: LORazepam 2 MG/ML INJ IM PRN (19:40)
[2024-07-26] MEDS ORDERED: MAG HYDROX/AL HYDROX/SIMETH 355 ML BOTTLE PO PRN (19:40)
[2024-07-26] MEDS ORDERED: haloperidoL 5 MG TAB PO PRN (19:40)
[2024-07-26] MEDS ORDERED: IBUPROFEN 600 MG TAB PO PRN (19:40)
[2024-07-26] MEDS: traZODone HCL 50 MG TAB PO PRN (22:59)
[2024-07-26] MEDS: LORazepam 1 MG TAB PO PRN (22:59)
--- NOTE | 2024-07-27 00:57 | P.HPMEDMHU ---
<Jenny Stephenson - Last Filed: 07/27/24 01:38> History of Present Illness H&P Date: 07/27/24 Patient is a 36-year-old female with past medical history of bipolar disorder, depression, hx of TIA, pre-diabetes, PFO closure presented to the ED under petition and certification for endangerment of others. She has been admitted to the mental health unit for further management of her psychiatric condition. [facility] physicians has been consulted for medical management of this patient. Patient denies any chest pain, shortness of breath, abdominal pain, nausea, vomiting, urinary or bowel complaints. Labs were as follows: Urine hCG was negative, urine toxicology negative, viral serology negative for COVID. Pertinent positives and negatives as discussed in HPI, a complete review of systems was performed and all other systems are negative. Patient seen and examined at bedside. Vital signs reviewed General: nontoxic, no distress, appears at stated age Derm: warm, dry Head: atraumatic, normocephalic, symmetric Eyes: EOMI, no lid lag, anicteric sclera, pupils equal round reactive to light ENT: Nose and ears atraumatic Neck: No thyromegaly, supple Mouth: no lip lesion, mucus membranes moist Cardiovascular: S1S2 reg, no murmur, no edema Lungs: clear to auscultation bilateral, no rhonchi, no rales, no wheeze, no acc essory muscle use Abdominal: soft, nontender to palpation, no guarding, no appreciable organomegaly Ext: no gross muscle atrophy, muscle strength muscle strength 5 out of 5 in all 4 extremities, no contractures Neuro: CN II-XII grossly intact Psych: Alert, oriented, appropriate affect Assessment/Plan: History of TIA Start aspirin 81 mg daily Prediabetes Morbid obesity Carb consistent diet Past Medical History Past Medical History: Coronary Artery Disease (CAD), CVA/TIA, Seizure Disorder Additional Past Medical History / Comment(s): 2007 after child History of Any Multi-Drug Resistant Organisms: None Reported Past Surgical History: Bariatric Surgery, Section, Cholecystectomy, Tubal Ligation Additional Past Surgical History / Comment(s): PFO CLOSURE X2, OPEN HEART INFANT, Past Anesthesia/Blood Transfusion Reactions: No Reported Reaction Past Psychological History: Bipolar, Depression Smoking Status: Current every day smoker, Vaper Past Alcohol Use History: None Reported Past Drug Use History: Marijuana, Methamphetamine - Past Family History Mother History Unknown: Yes Medications and Allergies Home Medications Medication Instructions Recorded Confirmed Type No Known Home Medications 07/26/24 07/26/24 History Allergies Allergy/AdvReac Type Severity Reaction Status Date / Time succinylcholine Allergy Severe delayed Verified 07/26/24 12:21 waking from surgery slobid Allergy Unknown Uncoded 07/26/24 10:39 Childhood Physical Exam Vitals: Vital Signs Temp Pulse Pulse Resp BP BP Pulse Ox 07/26/24 20:38 98.0 F 59 L 16 121/75 98 07/26/24 18:42 98.1 F 60 18 133/77 100 07/26/24 10:35 97.9 F 67 22 122/72 98 Intake and Output 07/26/24 07/26/24 07/27/24 14:59 22:59 06:59 Other: Weight 90.718 kg 105.2 kg Thrombosis Risk Factor Assmnt - Choose All That Apply Any of the Below Risk Factors Present?: Yes Each Factor Represents 1 point: Obesity (BMI >25) Other Risk Factors: No Other congenital or acquired thrombophilia - If yes, enter type in comment: No Thrombosis Risk Factor Assessment Total Risk Factor Score: 1 Thrombosis Risk Factor Assessment Level: Low Risk <Mohinder Ohara - Last Filed: 07/27/24 01:46> History of Present Illness I have seen and evaluated the patient today. I Discussed the case with the resident and agree with the resident's findings I edited the assessment and plan as necessary as documented in the resident's note. Physical Exam Vitals: Vital Signs Temp Pulse Pulse Resp BP BP Pulse Ox 07/26/24 20:38 98.0 F 59 L 16 121/75 98 07/26/24 18:42 98.1 F 60 18 133/77 100 07/26/24 10:35 97.9 F 67 22 122/72 98 Intake and Output 07/26/24 07/26/24 07/27/24 14:59 22:59 06:59 Other: Weight 90.718 kg 105.2 kg Cranial Nerve Examination - Cranial Nerves Cranial Nerve II- Optic: Intact Cranial Nerve III- Oculomotor: Intact Cranial Nerve IV- Trochlear: Intact Cranial Nerve V- Trigeminal: Intact Cranial Nerve - Abducens: Intact Cranial Nerve VII- Facial: Intact Cranial Nerve VIII- Auditory: Intact Cranial Nerve IX- Glossopharyngeal: Intact Cranial Nerve X- Vagus: Intact Cranial Nerve XI- Accessory: Intact Cranial Nerve XII- Hypoglossal: Intact
[2024-07-27 08:09] LABS: Basophils % (A) 1 %; Eosinophils # (A) 0.2 k/uL (0-0.7); Eosinophils % (A) 2 %; HCT 41.3 % (34.0-46.0); HGB 13.5 gm/dL (11.4-16.0); Lymphocytes # (A) 3.2 k/uL (1.0-4.8); Lymphocytes % (A) 45 %; MCH 28.9 pg (25.0-35.0); MCHC 32.5 g/dL (31.0-37.0); MCV 88.9 fL (80.0-100.0); Mean Platelet Volume 7.6; Monocytes # (A) 0.4 k/uL (0-1.0); Monocytes % (A) 6 %; Neutrophils # (A) 3.1 k/uL (1.3-7.7); Neutrophils % (A) 44 %; Platelet Count 227 k/uL (150-450); RBC 4.65 m/uL (3.80-5.40); RDW 12.6 % (11.5-15.5)
[2024-07-27 08:13] LABS: ALT 13 U/L (4-34); AST 14 U/L (14-36); African American GFR (CKD) >90 (>60 ml/min/1.73 sqM); Alkaline Phosphatase 56 U/L (38-126); Anion Gap 8 mmol/L; Blood Urea Nitrogen 11 mg/dL (7-17); Calcium 9.4 mg/dL (8.4-10.2); Carbon Dioxide 29 mmol/L (22-30); Chloride 106 mmol/L (98-107); Glucose 102 mg/dL (74-99); Non-African American GFR(CKD) >90 (>60 ml/min/1.73 sqM); Potassium 4.2 mmol/L (3.5-5.1); Sodium 143 mmol/L (137-145); Total Bilirubin 0.4 mg/dL (0.2-1.3); Total Protein 6.5 g/dL (6.3-8.2)
[2024-07-27] MEDS: NICOTINE 14MG/24HR PATCH TRANSDERM SCH (09:06)
--- NOTE | 2024-07-27 12:52 | P.HP ---
Psychiatric H&P - . H&P Date: 07/27/24 History & Physical: Allergies Allergy/AdvReac Type Severity Reaction Status Date / Time succinylcholine Allergy Severe delayed Verified 07/26/24 12:21 waking from surgery slobid Allergy Unknown Uncoded 07/26/24 10:39 Childhood Vital Signs Temp 98.0 F 07/26/24 20:38 Pulse 59 L 07/26/24 20:38 Resp 16 07/26/24 20:38 BP 121/75 07/26/24 20:38 Pulse Ox 98 07/26/24 20:38 FiO2 Intake & Output 07/26/24 07/27/24 07/27/24 18:59 06:59 18:59 Weight 90.718 kg 105.2 kg Laboratory Last Values WBC 7.0 k/uL (3.8-10.6) 07/27/24 07:44 RBC 4.65 m/uL (3.80-5.40) 07/27/24 07:44 Hgb 13.5 gm/dL (11.4-16.0) 07/27/24 07:44 Hct 41.3 % (34.0-46.0) 07/27/24 07:44 MCV 88.9 fL (80.0-100.0) 07/27/24 07:44 MCH 28.9 pg (25.0-35.0) 07/27/24 07:44 MCHC 32.5 g/dL (31.0-37.0) 07/27/24 07:44 RDW 12.6 % (11.5-15.5) 07/27/24 07:44 Plt Count 227 k/uL (150-450) 07/27/24 07:44 MPV 7.6 07/27/24 07:44 Neutrophils % 44 % 07/27/24 07:44 Lymphocytes % 45 % 07/27/24 07:44 Monocytes % 6 % 07/27/24 07:44 Eosinophils % 2 % 07/27/24 07:44 Basophils % 1 % 07/27/24 07:44 Neutrophils # 3.1 k/uL (1.3-7.7) 07/27/24 07:44 Lymphocytes # 3.2 k/uL (1.0-4.8) 07/27/24 07:44 Monocytes # 0.4 k/uL (0-1.0) 07/27/24 07:44 Eosinophils # 0.2 k/uL (0-0.7) 07/27/24 07:44 Basophils # 0.0 k/uL (0-0.2) 07/27/24 07:44 Sodium 143 mmol/L (137-145) 07/27/24 07:44 Potassium 4.2 mmol/L (3.5-5.1) 07/27/24 07:44 Chloride 106 mmol/L (98-107) 07/27/24 07:44 Carbon Dioxide 29 mmol/L (22-30) 07/27/24 07:44 Anion Gap 8 mmol/L 07/27/24 07:44 BUN 11 mg/dL (7-17) 07/27/24 07:44 Creatinine 0.59 mg/dL (0.52-1.04) 07/27/24 07:44 Est GFR (CKD-EPI)AfAm >90 (>60 ml/min/1.73 sqM) 07/27/24 07:44 Est GFR (CKD-EPI)NonAf >90 (>60 ml/min/1.73 sqM) 07/27/24 07:44 Glucose 102 mg/dL (74-99) H 07/27/24 07:[address] Glu mg/dL 143 mg/dL 07/27/24 07:44 Hemoglobin A1c 6.6 % (<=6.0) H 07/27/24 07:44 Calcium 9.4 mg/dL (8.4-10.2) 07/27/24 07:44 Total Bilirubin 0.4 mg/dL (0.2-1.3) 07/27/24 07:44 AST 14 U/L (14-36) 07/27/24 07:44 ALT 13 U/L (4-34) 07/27/24 07:44 Alkaline Phosphatase 56 U/L (38-126) 07/27/24 07:44 Total Protein 6.5 g/dL (6.3-8.2) 07/27/24 07:44 Albumin 4.0 g/dL (3.5-5.0) 07/27/24 07:44 TSH 2.310 mIU/L (0.465-4.680) 07/27/24 07:44 Urine HCG, Qual Not Detected (Not Detectd) 07/26/24 10:53 Urine Opiates Screen Not Detected (NotDetected) 07/26/24 10:53 Ur Oxycodone Screen Not Detected (NotDetected) 07/26/24 10:53 Urine Methadone Screen Not Detected (NotDetected) 07/26/24 10:53 Ur Barbiturates Screen Not Detected (NotDetected) 07/26/24 10:53 U Tricyclic Antidepress Not Detected (NotDetected) 07/26/24 10:53 Ur Phencyclidine Scrn Not Detected (NotDetected) 07/26/24 10:53 Ur Amphetamines Screen Not Detected (NotDetected) 07/26/24 10:53 U Methamphetamines Scrn Not Detected (NotDetected) 07/26/24 10:53 U Benzodiazepines Scrn Not Detected (NotDetected) 07/26/24 10:53 Urine Cocaine Screen Not Detected (NotDetected) 07/26/24 10:53 U Marijuana (THC) Screen Not Detected (NotDetected) 07/26/24 10:53 SARS-CoV-2 (PCR) Not Detected (Not Detectd) 07/26/24 12:47 07/27/24 12:30 IDENTIFYING DATA: Patient is a unemployed, homeless, she is , she has 4 kids, 39-year-old female who presented the emergency department under petition from family for bizarre behaviors and noncompliance with medications HPI: Patient presented to the hospital yesterday for evaluation. Patient was brought in on a petition by family member for suppose a noncompliant and bizarre behaviors including talking to herself and having "multiple personalities". Patient apparently has been in halfway for 21 days for not paying child support, taken directly to the hospital for evaluation. Patient's urine drug screen is negative. She claims that she does not know why she is in the hospital, claims that her family petitioned her and she has not seen the petition. Claims that she has been in halfway for since July 04 to July 26 for not paying child support. Claims that she was supposed to go directly [facility] today however was taken to the hospital instead. Claims that her family petitioned her. States that she is supposed he has not been taking her medications for over 2 years, claims that "I did not has Medicaid" and states that she recently got it back. Has been to [place] as well in the past, unstable living situation. Claims that she is also dealing with some mild depression and anxiety at this time. She was fairly calm attempting to cooperate. Claims that her sleep has been on and off, fairly inconsistent. Describes a fair appetite. Denying any paranoia at this time. Claims that she does have a history of manic like episodes, last one was several years ago. Patient is currently homeless at this time. She is denying any suicidal homicidal ideations intent or plan. Denying any visual hallucinations however does state that at times she does hear auditory hallucinations however not currently. She claims that she does have a long history of abusing methamphetamine, last use was before halfway in early June, claims that she also vapes nicotine PAST PSYCHIATRIC HISTORY: From her previous admission, the patient has prior diagnoses of bipolar and "multiple personality disorder". She was last admitted to the psychiatric unit in November 2021. Patient has been on several different medications however cannot remember most of them, has been on Seroquel in the past, Lamictal, Wellbutrin and Abilify. She had another hospitalization at [facility] in 2020. She was supposed to follow up with [facility] but is nonadherent with outpatient treatment. Denies any previous suicide attempts. She has been off her medications for over 2 years. PMH: Past Medical History: Coronary Artery Disease (CAD), CVA/TIA Additional Past Medical History / Comment(s): 2007 after child History of Any Multi-Drug Resistant Organisms: None Reported Past Surgical History: Bariatric Surgery, Section, Cholecystectomy, Tubal Ligation Additional Past Surgical History / Comment(s): PFO CLOSURE X2, OPEN HEART INFANT, Past Psychological History: Bipolar, Depression Smoking Status: Never smoker Past Alcohol Use History: None Reported Past Drug Use History: Marijuana, Methamphetamine ALLERGIES: As per EMR CHEMICAL DEPENDENCY HISTORY: As per HPI FAMILY PSYCHIATRIC/SUBSTANCE USE HISTORY: Denies SOCIAL HISTORY: Patient is currently homeless. She is , she has 4 kids. She was just coming from halfway for 21 days for nonpayment of child support. Denies any other legal history. Claims that she has 1/10 grade education, has worked several odd jobs in the past. Unemployed currently MENTAL STATUS EXAM: General Appearance: Patient appears to be stated age is alert, attempts to cooperate. Patient appears to have poor hygiene and grooming. Behavior: Patient is sitting in the chair, attempts to cooperate, fair eye contact Speech: Patient's speech is fluent, nonpressured Mood/Affect: Patient reports their mood is depressed and anxious, affect is congruent and constricted Suicidality/Homicidality: Patient denies any current suicidal and homicidal ideation. Perceptions: Denies any current auditory or visual hallucinations. Does state that she does have a history of hearing voices. Though content/process: Not reporting any paranoia or delusions. Goal oriented Memory and concentration: Oriented x 3, fair attention span Judgment and insight: Poor STRENGTHS/WEAKNESSES: Patient's strength is that she has access to care, has family support. Weaknesses include ongoing issues with substance abuse, homelessness. INTELLECT: average IMPRESSIONS: Bipolar disorder, with psychotic features Methamphetamine use disorder Nicotine dependence Homelessness PLAN: -Patient is admitted under voluntary status to MHU for stabilization of psychiatric symptoms and safety. Patient signed voluntary form and also signed medication consent form -Medications : Seroquel 50 mg nightly for mood stabilization/augmentation of antidepressant/psychosis Zoloft 25 mg daily for mood/anxiety -Ativan and Haldol PRN for agitation/aggression -Patient was informed of the risks, benefits and side effects of the medication, she signed medication consent form -Internal Medicine consult to perform medical evaluation and physical. -NRT - nicotine patch - on board for discharge planning. Encourage patient to participate in groups to work on coping skills. Patient has an intake at [facility] however needs to be rescheduled due to patient being in the hospital. 07/27/24 12:43
[2024-07-27] MEDS: SERTRALINE 25 MG TAB PO SCH (13:27)
[2024-07-27 14:17] LABS: Appearance,Urine Clear (Clear); Bilirubin,Urine Negative (Negative); Blood,Urine Large (Negative); Color,Urine Light Red; Glucose,Urine (UA) Negative (Negative); Ketones,Urine Negative (Negative); Leukocyte Esterase,Urine Small (Negative); Mucus,Urine Rare /hpf; Nitrite,Urine Negative (Negative); Protein,Urine Trace (Negative); RBC,Urine >182 /hpf (0-5); Squamous Epithelial Cell,Urine 2 /hpf (0-4); Urobilinogen,Urine <2.0 mg/dL (<2.0); WBC,Urine 133 /hpf (0-5)
[2024-07-27 15:50] LABS: Chol/HDL Ratio 2.84 Ratio; VLDL Calculation 15.94 mg/dL (5.00-40.00)
[2024-07-27] MEDS: QUEtiapine 50 MG TAB PO SCH (20:13)
--- NOTE | 2024-07-28 11:36 | P.PN ---
Progress Note - Text Progress Note Date: 07/28/24 Interval History: Patient was seen today for psychiatric follow up. She was playing cards with o ther patients on the unit. She claims that she had a difficult time sleeping last night due to resltess leg symptoms. Claims that she is still having at this time right now. Claims that overall her mood and anxiety have been improving. She was agreeable to try Zyprexa instead increase that she believes that she had a better tolerance to this medication. Claims that her appetite is mildly improving. Denies any depression today. Spoke more about her discharge planning tomorrow to [facility] in the morning. Denying any auditory visualizations. Denying any suicidal homicidal ideations intent or plan. Is been taking her medications. MENTAL STATUS EXAM: General Appearance: Patient appears to be stated age is alert, attempts to cooperate. Patient appears to have improving hygiene and grooming. Behavior: Patient is sitting in the chair, attempts to cooperate, fair eye contact Speech: Patient's speech is fluent, nonpressured Mood/Affect: Patient reports their mood is improving mildly, affect is congruent and improving affect Suicidality/Homicidality: Patient denies any current suicidal and homicidal ideation. Perceptions: Denies any current auditory or visual hallucinations. Though content/process: Not reporting any paranoia or delusions. Goal oriented, more oriented today Memory and concentration: Oriented x 3, fair attention span Judgment and insight: improving IMPRESSIONS: Bipolar disorder, with psychotic features Methamphetamine use disorder Nicotine dependence Homelessness PLAN: -Patient is admitted under voluntary status to MHU for stabilization of psychiatric symptoms and safety. Patient signed voluntary form and also signed medication consent form -Medications : Discontinue Seroquel due to restless leg symptoms, replace with Zyprexa 5 mg nightly for mood stabilization/augmentation of antidepressant/psychosis Increase Zoloft 50 mg daily for mood/anxiety -Ativan and Haldol PRN for agitation/aggression -Patient was informed of the risks, benefits and side effects of the medication, she signed medication consent form -Internal Medicine consult to perform medical evaluation and physical. -NRT - nicotine patch -SW on board for discharge planning. Encourage patient to participate in groups to work on coping skills. Patient has an intake at [facility] tomorrow in the morning, will be likely discharge tomorrow morning if patient is improving psychiatrically.
[2024-07-28] MEDS: OLANZapine 5 MG TAB PO SCH (20:45)
[2024-07-28] MEDS: ACETAMINOPHEN TAB 325 MG TAB PO PRN (21:34)
[2024-07-29] MEDS: SERTRALINE 50 MG TAB PO SCH (07:59)
[2024-07-29 08:11] VITALS: BP 125/83; PULSE 71; RESP 20; TEMP 97.1
--- NOTE | 2024-07-29 09:36 | P.DS ---
Providers Date of admission: 07/26/24 19:36 Expected date of discharge: 07/29/24 Attending physician: Kp Ortiz MD Consults: 07/26/24 19:40 Consult Physician Routine Consulting Provider: [place] Physician Consult Reason/Comments: H&P and medical Do you want consulting provider notified?: Yes Primary care physician: Stated None - Discharge Diagnosis(es) (1) Bipolar disorder with psychotic features Status: Acute Priority: High (2) Methamphetamine use disorder, moderate Status: Acute Priority: High (3) Nicotine dependence Status: Acute Priority: Low (4) Homelessness Status: Acute Priority: Medium Hospital Course: Admission HPI: Admission note was completed by travel writer "patient is a unemployed, homeless, she is , she has 4 kids, 39-year-old female who presented the emergency department under petition from family for bizarre behaviors and noncompliance with medications. Patient presented to the hospital yesterday for evaluation. Patient was brought in on a petition by family member for suppose a noncompliant and bizarre behaviors including talking to herself and having "multiple personalities". Patient apparently has been in [facility] for 21 days for not paying child support, taken directly to the hospital for evaluation. Patient's urine drug screen is negative. She claims that she does not know why she is in the hospital, claims that her family petitioned her and she has not seen the petition. Claims that she has been in [facility] for since July 04 to July 26 for not paying child support. Claims that she was supposed to go directly [facility] today however was taken to the hospital instead. Claims that her family petitioned her. States that she is supposed he has not been taking her medications for over 2 years, claims that "I did not has Medicaid" and states that she recently got it back. Has been to [place] as well in the past, unstable living situation. Claims that she is also dealing with some mild depression and anxiety at this time. She was fairly calm attempting to cooperate. Claims that her sleep has been on and off, fairly inconsistent. Describes a fair appetite. Denying any paranoia at this time. Claims that she does have a history of manic like episodes, last one was several years ago. Patient is currently homeless at this time. She is denying any suicidal homicidal ideations intent or plan. Denying any visual hallucinations however does state that at times she does hear auditory hallucinations however not currently. She claims that she does have a long history of abusing methamphetamine, last use was before [facility] in early June, claims that she also vapes nicotine" Hospital course: Upon admission to the unit patient was directable and agreeable to commence treatment and signed adult voluntary form. Patient got along well with other patients on the unit and followed unit protocol. Patient was compliant with the medications and denied any side effects throughout hospital course. Patient was started on Seroquel however due to restless leg symptoms was switched to Zyprexa, 5 mg nightly for mood stabilization/augmentation of antidepressant/psychosis, Zoloft 50 mg daily for mood/anxiety. Patient spoke of her stressors and engaged in therapy both group and individual. Patient was also seen by medical team for history and physical exam. Throughout the course of the hospitalization patient gradually improved with regards to mood, anxiety, psychosis, sleep and became more future oriented with improved insight and judgment. On the day of discharge patient denied any suicidal or homicidal ideations intent or plan denied any auditory or visual hallucinations. Patient endorsed wanting to live for their health, sobriety and family. The patient denied any access to guns or weapons. Patient denied any paranoia and did not endorse any delusions. Patient does have a significant history of substance abuse and was counseled on abstaining from all substances including alcohol and marijuana. Patient ended up agreeing to inpatient subtance rehab. Patient was accepted to [facility] for inpatient rehab. Patient was also counseled on the medications and need for regular compliance and was encouraged to follow-up with their outpatient appointment for mental health and also for primary care. Mental status exam: General Appearance: Patient appears to be mildly overweight, stated age is alert, pleasant, and cooperative. Patient is in no acute distress and has improved hygiene and grooming Behavior: Patient is calmly seated without any agitated behavior. Speech: Patient's speech is fluent and nonpressured. Mood/Affect: Patient reports their mood is "good", affect is congruent and euthymic. Suicidality/Homicidality: Patient denies having any suicidal or homicidal ideation intent or plan. Perceptions: Patient denies any auditory or visual hallucinations. Though content/process: There is no evidence of any delusional thought content and thought process is linear and goal-directed. More future oriented Memory and concentration: AOX3, grossly intact for the purposes of this session. Can spell "WORLD" backwards correctly. Judgment and insight: improved with guarded prognosis Impression: Bipolar disorder with psychotic features Methamphetamine use disorder Homelessness Nicotine dependence Plan: -Continue with discharge today as patient has improved and stabilized psychiatrically and is not currently an imminent threat to themself and/or others. Patient will remain at chronically elevated risk for harm to self and/or others due to their impulsivity and substance abuse. -Continue medications: Zoloft 50 mg daily for mood/anxiety, Zyprexa 5 mg nightly for mood stabilization/augmentation of antidepressant, psychosis, sleep -Patient was counseled on the need for medication compliance and appropriate follow-up at mental health and also primary care for medical issues. Patient verbalized understanding and agreed. -Social work to help coordinate patients discharge today with transportation to [facility] for inpatient rehab. also to ensure safe home environment that guns/weapons are either removed from the home or locked away. Social work also to arrange for patients follow up appointments with [facility] for psychiatric care along with follow up with primary care provider. -Patient counseled on abstaining from recreational drugs and marijuana and alcohol. Was informed/educated on the adverse effects on their physical and mental health. Patient verbally agreed and understood. -Patient was instructed to return to the hospital or seek immediate medical care if their psychiatric or medical symptoms do worsen or reoccur. Allergies Allergy/AdvReac Type Severity Reaction Status Date / Time succinylcholine Allergy Severe delayed Verified 07/26/24 12:21 waking from surgery slobid Allergy Unknown Uncoded 07/26/24 10:39 Childhood Laboratory Results WBC 7.0 k/uL (3.8-10.6) 07/27/24 07:44 RBC 4.65 m/uL (3.80-5.40) 07/27/24 07:44 Hgb 13.5 gm/dL (11.4-16.0) 07/27/24 07:44 Hct 41.3 % (34.0-46.0) 07/27/24 07:44 MCV 88.9 fL (80.0-100.0) 07/27/24 07:44 MCH 28.9 pg (25.0-35.0) 07/27/24 07:44 MCHC 32.5 g/dL (31.0-37.0) 07/27/24 07:44 RDW 12.6 % (11.5-15.5) 07/27/24 07:44 Plt Count 227 k/uL (150-450) 07/27/24 07:44 MPV 7.6 07/27/24 07:44 Neutrophils % 44 % 07/27/24 07:44 Lymphocytes % 45 % 07/27/24 07:44 Monocytes % 6 % 07/27/24 07:44 Eosinophils % 2 % 07/27/24 07:44 Basophils % 1 % 07/27/24 07:44 Neutrophils # 3.1 k/uL (1.3-7.7) 07/27/24 07:44 Lymphocytes # 3.2 k/uL (1.0-4.8) 07/27/24 07:44 Monocytes # 0.4 k/uL (0-1.0) 07/27/24 07:44 Eosinophils # 0.2 k/uL (0-0.7) 07/27/24 07:44 Basophils # 0.0 k/uL (0-0.2) 07/27/24 07:44 Sodium 143 mmol/L (137-145) 07/27/24 07:44 Potassium 4.2 mmol/L (3.5-5.1) 07/27/24 07:44 Chloride 106 mmol/L (98-107) 07/27/24 07:44 Carbon Dioxide 29 mmol/L (22-30) 07/27/24 07:44 Anion Gap 8 mmol/L 07/27/24 07:44 BUN 11 mg/dL (7-17) 07/27/24 07:44 Creatinine 0.59 mg/dL (0.52-1.04) 07/27/24 07:44 Est GFR (CKD-EPI)AfAm >90 (>60 ml/min/1.73 sqM) 07/27/24 07:44 Est GFR (CKD-EPI)NonAf >90 (>60 ml/min/1.73 sqM) 07/27/24 07:44 Glucose 102 mg/dL (74-99) H 07/27/24 07:[address] Glu mg/dL 143 mg/dL 07/27/24 07:44 Hemoglobin A1c 6.6 % (<=6.0) H 07/27/24 07:44 Calcium 9.4 mg/dL (8.4-10.2) 07/27/24 07:44 Total Bilirubin 0.4 mg/dL (0.2-1.3) 07/27/24 07:44 AST 14 U/L (14-36) 07/27/24 07:44 ALT 13 U/L (4-34) 07/27/24 07:44 Alkaline Phosphatase 56 U/L (38-126) 07/27/24 07:44 Total Protein 6.5 g/dL (6.3-8.2) 07/27/24 07:44 Albumin 4.0 g/dL (3.5-5.0) 07/27/24 07:44 Triglycerides 79.70 mg/dL (0.00-149.00) 07/27/24 07:44 Cholesterol 131.00 mg/dL (0.00-200.00) 07/27/24 07:44 LDL Cholesterol, Calc 69.0 mg/dL (0.0-131.0) 07/27/24 07:44 VLDL Cholesterol, Calc 15.94 mg/dL (5.00-40.00) 07/27/24 07:44 HDL Cholesterol 46.10 mg/dL (40.00-60.00) 07/27/24 07:44 Cholesterol/HDL Ratio 2.84 Ratio 07/27/24 07:44 TSH 2.310 mIU/L (0.465-4.680) 07/27/24 07:44 Urine Color Light Red 07/26/24 10:53 Urine Appearance Clear (Clear) 07/26/24 10:53 Urine pH 6.0 (5.0-8.0) 07/26/24 10:53 Ur Specific [place] 1.010 (1.001-1.035) 07/26/24 10:53 Urine Protein Trace (Negative) H 07/26/24 10:53 Urine Glucose (UA) Negative (Negative) 07/26/24 10:53 Urine Ketones Negative (Negative) 07/26/24 10:53 Urine Blood Large (Negative) H 07/26/24 10:53 Urine Nitrite Negative (Negative) 07/26/24 10:53 Urine Bilirubin Negative (Negative) 07/26/24 10:53 Urine Urobilinogen <2.0 mg/dL (<2.0) 07/26/24 10:53 Ur Leukocyte Esterase Small (Negative) H 07/26/24 10:53 Urine RBC >182 /hpf (0-5) H 07/26/24 10:53 Urine WBC 133 /hpf (0-5) H 07/26/24 10:53 Ur Squamous Epith Cells 2 /hpf (0-4) 07/26/24 10:53 Urine Mucus Rare /hpf (None) H 07/26/24 10:53 Urine HCG, Qual Not Detected (Not Detectd) 07/26/24 10:53 Urine Opiates Screen Not Detected (NotDetected) 07/26/24 10:53 Ur Oxycodone Screen Not Detected (NotDetected) 07/26/24 10:53 Urine Methadone Screen Not Detected (NotDetected) 07/26/24 10:53 Ur Barbiturates Screen Not Detected (NotDetected) 07/26/24 10:53 U Tricyclic Antidepress Not Detected (NotDetected) 07/26/24 10:53 Ur Phencyclidine Scrn Not Detected (NotDetected) 07/26/24 10:53 Ur Amphetamines Screen Not Detected (NotDetected) 07/26/24 10:53 U Methamphetamines Scrn Not Detected (NotDetected) 07/26/24 10:53 U Benzodiazepines Scrn Not Detected (NotDetected) 07/26/24 10:53 Urine Cocaine Screen Not Detected (NotDetected) 07/26/24 10:53 U Marijuana (THC) Screen Not Detected (NotDetected) 07/26/24 10:53 SARS-CoV-2 (PCR) Not Detected (Not Detectd) 07/26/24 12:47 Vital Signs Temp 97.1 F L 07/29/24 08:11 Pulse 71 07/29/24 08:11 Resp 20 07/29/24 08:11 BP 125/83 07/29/24 08:11 Pulse Ox 98 07/28/24 08:11 FiO2 Patient Condition at Discharge: Stable Plan - Discharge Summary Discharge Rx Participant: No New Discharge Prescriptions: New Nicotine 14Mg/24Hr Patch [Habitrol] 1 patch TRANSDERM DAILY 14 Days #14 patch Ibuprofen [Motrin] 600 mg PO Q6HR PRN tab PRN Reason: Moderate Pain (Scale 4 To 6) Sertraline [Zoloft] 50 mg PO DAILY 30 Days #30 tab OLANZapine [ZyPREXA] 5 mg PO HS 30 Days #30 tab traZODone HCL [Desyrel] 50 mg PO HS PRN 30 Days #30 tab PRN Reason: Insomnia Discharge Medication List Ibuprofen [Motrin] 600 mg PO Q6HR PRN tab 07/28/24 [Rx] Nicotine 14Mg/24Hr Patch [Habitrol] 1 patch TRANSDERM DAILY 14 Days #14 patch 07/28/24 [Rx] OLANZapine [ZyPREXA] 5 mg PO HS 30 Days #30 tab 07/28/24 [Rx] Sertraline [Zoloft] 50 mg PO DAILY 30 Days #30 tab 07/28/24 [Rx] traZODone HCL [Desyrel] 50 mg PO HS PRN 30 Days #30 tab 07/28/24 [Rx] Follow up Appointment(s)/Referral(s): Kaia Akhtarab [Other] - 07/29/24 12:00 pm [facility] [REFERRING] - 1 Week Patient Instructions/Handouts: How to Stop Smoking (DC), Bipolar Disorder (DC), Methamphetamine Abuse (ED) Activity/Diet/Wound Care/Special Instructions: [facility] Discharge Info Avoid the use of street drugs and alcohol. Take all medications as prescribed. When you are in need of refills on your medications, please contact your outpatient medical provider and/or outpatient psychiatrist. Please go to your scheduled outpatient appointments for aftercare treatment. If symptoms return or become worse, call the crisis line at or and/or visit the nearest emergency room for assistance. National Suicide and Crisis Lifeline - call or text 078 Discharge Disposition: OTHER INSTITUTION NOT DEFINED
== END 2024-07-29 08:48 | DRG 885 ==
LOC: EC 09:45 → 3MHU 19:36
PROVIDERS: ADMIT Psychiatry & Neurology Psychiatry; ATTEND Psychiatry & Neurology Psychiatry
DX: F31.9 Bipolar disorder, unspecified (principal); F15.20 Other stimulant dependence, uncomplicated; Z59.00 Homelessness unspecified; F17.200 Nicotine dependence, unspecified, uncomplicated; I25.10 Atherosclerotic heart disease of native coronary artery without angina pectoris; R73.03 Prediabetes; E66.01 Morbid (severe) obesity due to excess calories; G40.909 Epilepsy, unspecified, not intractable, without status epilepticus; Z56.0 Unemployment, unspecified; Z91.148 Patient's other noncompliance with medication regimen for other reason; Z88.8 Allergy status to other drugs, medicaments and biological substances; Z86.73 Personal history of transient ischemic attack (TIA), and cerebral infarction without residual deficits; Z87.74 Personal history of (corrected) congenital malformations of heart and circulatory system; Z68.36 Body mass index [BMI] 36.0-36.9, adult
CPT/HCPCS: 80053; 80061; 80306; 81001; 81025; 82075; 83036; 84443; 85025; 87635; 99285